=== PATIENT | male | born 1965 | race American Indian/Alaskan Native ===

== ENCOUNTER 2017-08-09 15:29 | Emergency (ER) | payer MEDICAID, OTHER ==
[2017-08-09] MEDS ORDERED: Acetaminophen/HYDROcodone 325-10 MG Tab PO ONE (15:30)
[2017-08-09 17:22] VITALS: BP 144/68
[2017-08-09] MEDS ORDERED: Acetaminophen/HYDROcodone 325-5 MG Tab PO ONE (18:21)
[2017-08-09] MEDS ORDERED: Acetaminophen/HYDROcodone 325-5 MG Tab ONE (18:25)
--- NOTE | 2017-08-10 08:44 | EDM.PDOC ---
Scribed by Ev Abarca 08/09/17 1800 for Iva Doshi NP ED HPI GENERAL MEDICAL PROBLEM - General Chief Complaint: Lower Extremity Injury/Pain Stated Complaint: FOOT INJURY Time Seen by Provider: 08/09/17 17:25 Source of Information: Reports: Patient, RN, RN Notes Reviewed History Limitations: Reports: No Limitations - History of Present Illness INITIAL COMMENTS - FREE TEXT/NARRATIVE: Patient presents to ER with complaint of left foot/ankle pain. Patient states he fell between 2 steps and got foot caught. States this happened last night. Rates pain 8/10. Patient states took ibuprofen and Tylenol without help. Onset: Today Duration: Getting Worse Location: Reports: Lower Extremity, Left Quality: Reports: Ache Severity: Moderate Improves with: Reports: None Worsens with: Reports: None Associated Symptoms: Reports: No Other Symptoms Left Feet Pain Score (Numeric/FACES): 8 - Related Data Allergies Allergy/AdvReac Type Severity Reaction Status Date / Time No Known Allergies Allergy Verified 08/09/17 17:17 Home Meds: Home Meds . [No Known Home Meds] 05/23/15 [History] Past Medical History - Past Health History Medical/Surgical History: Denies Medical/Surgical History HEENT History: Reports: Hard of Hearing Other HEENT History: to left ear, bad eyes Cardiovascular History: Reports: None Respiratory History: Reports: None Gastrointestinal History: Reports: None Genitourinary History: Reports: None Musculoskeletal History: Reports: None Neurological History: Reports: None Psychiatric History: Reports: None Endocrine/Metabolic History: Reports: None Hematologic History: Reports: None Immunologic History: Reports: None Oncologic (Cancer) History: Reports: None Dermatologic History: Reports: None - Infectious Disease History Infectious Disease History: Reports: Chicken Pox - Past Surgical History Head Surgeries/Procedures: Reports: None Social & Family History - Family History Cardiac: Reports: CAD, Hypertension Oncologic: Reports: None - Tobacco Use Smoking Status *Q: Current Every Day Smoker Years of Tobacco use: 20 Packs/Tins Daily: 0.2 - Caffeine Use Caffeine Use: Reports: Coffee - Recreational Drug Use Recreational Drug Use: No - Living Situation & Occupation Living situation: Reports: with Family Review of Systems - Review of Systems Review Of Systems: ROS reveals no pertinent complaints other than HPI. ED EXAM, GENERAL - Physical Exam Exam: See Below Exam Limited By: No Limitations General Appearance: Alert, WD/WN, No Apparent Distress Eye Exam: Bilateral Eye: Normal Inspection Ears: Normal External Exam, Normal Canal, Hearing Grossly Normal, Normal TMs Nose: Normal Inspection, Normal Mucosa, No Blood Throat/Mouth: Normal Inspection, Normal Lips, Normal Teeth, Normal Gums, Normal Oropharynx, Normal Voice, No Airway Compromise Head: Atraumatic, Normocephalic Neck: Normal Inspection, Supple, Non-Tender, Full Range of Motion Respiratory/Chest: No Respiratory Distress, Lungs Clear, Normal Breath Sounds, No Accessory Muscle Use, Chest Non-Tender Cardiovascular: Normal Peripheral Pulses, Regular Rate, Rhythm, No Edema, No Gallop, No JVD, No Murmur, No Rub GI/Abdominal: Normal Bowel Sounds, Soft, Non-Tender, No Organomegaly, No Distention, No Abnormal Bruit, No Mass (Male) Exam: Deferred Rectal (Males) Exam: Deferred Back Exam: Normal Inspection, Full Range of Motion, NT Extremities: Other (left foot swelling. Ecchymosi zee 5toes. ) Neurological: Alert, Oriented, CN II-XII Intact, Normal Cognition, Normal Gait, Normal Reflexes, No Motor/Sensory Deficits Psychiatric: Normal Affect, Normal Mood Skin Exam: Other (ecchymosis left foot.) Lymphatic: No Adenopathy ED TRAUMA EXTREMITY PROCEDURES - Splinting Left Lower Extremity Splint Site: left foot Pre-Procedure NV Status: Normal Post-Procedure NV Status: Normal Splint Material: Fiberglass Applied & Form Fitted By: Provider Provider Post-Splint Application NV Check: NV Status Normal Complications: No Course - Vital Signs Last Recorded V/S: Last Vital Signs Temp 98.3 F 08/09/17 17:22 Pulse 57 L 08/09/17 17:22 Resp 18 08/09/17 17:22 BP 144/68 H 08/09/17 17:22 Pulse Ox 100 08/09/17 17:22 - Orders/Labs/Meds Meds: Medications Discontinued Medications Generic Name Dose Route Start Last Admin Trade Name Freq PRN Reason Stop Dose Admin Hydrocodone Bitart/Acetaminophen 1 tab 08/09/17 18:21 08/09/17 18:28 Taylor 325-5 Mg PO 08/09/17 18:22 1 tab ONETIME ONE Administration Hydrocodone Bitart/Acetaminophen Confirm 08/09/17 18:25 08/09/17 18:30 Taylor 325-5 Mg Administered 08/09/17 18:26 Not Given Dose 2 tab .ROUTE .K-MED ONE - Radiology Interpretation Free Text/Narrative:: Left foot xray: IMPRESSION: Fourth and fifth metatarsal fractures. Thank you for allowing us to participate in the care of your patient. Dictated and Authenticated by: Caleb Villa MD 08/09/2017 5:51 PM Central Time ([place] & [place]) Left ankle xray: IMPRESSION: No acute findings. Thank you for allowing us to participate in the care of your patient. Dictated and Authenticated by: Caleb Villa MD 08/09/2017 5:52 PM Central Time ([place] & [place]) See rad report Departure - Departure Time of Disposition: 18:20 Disposition: Home, Self-Care 01 Condition: Fair Clinical Impression: Closed fracture of metatarsal bone, Metatarsal bone fracture - Discharge Information Instructions: Crutch Use, Adult, [id number], Metatarsal Fracture With Rehab- SportsMed, Cast or Splint Care, Adult, [id number] Forms: ED Department Discharge Additional Instructions: No weight bearing until seen by ortho in [place] Keep splint clean and dry Use crutches On Friday morning call [facility] clinic for an appointment next week. [phone] RX: Taylor I have read and agree with the documentation that has been completed regarding this visit. By signing this record, I attest that the documentation was completed in my physical presence and is an accurate record of the encounter.
== END 2017-08-09 18:35 | disposition home or self-care (01) ==
LOC: DL.ED 15:29
DX: S92.342A Displaced fracture of fourth metatarsal bone, left foot, initial encounter for closed fracture (principal); S92.352A Displaced fracture of fifth metatarsal bone, left foot, initial encounter for closed fracture; F17.210 Nicotine dependence, cigarettes, uncomplicated; W10.9XXA Fall (on) (from) unspecified stairs and steps, initial encounter
CPT/HCPCS: 29515; 73610; 73630; 99283; 99284; A9270

== ENCOUNTER 2017-09-27 11:14 | Emergency (ER) | payer MEDICAID, OTHER ==
[~2017-09-27 11:14] MED LIST: Diazepam 5 MG/ML 10 ML Vial MDV IM ONE; Diazepam 5 MG/ML 10 ML Vial MDV IVPUSH ONE; Diazepam 5 MG/ML 10 ML Vial MDV ONE; MVI, Adult with Vitamin K 10 ML, Thiamine 100 MG, Folic Acid 1 MG in Lactated Ringers 1... IV ONE; Sodium Chloride 0.9% 10 ML Syringe FLUSH PRN
[2017-09-27] MEDS ORDERED: Rocuronium 50 MG/5 ML Vial IV ONE (11:15)
[2017-09-27] MEDS ORDERED: Succinylcholine 200 MG/10 ML MDV IV ONE (11:15)
[2017-09-27] MEDS ORDERED: Propofol 200 MG/20 ML SDV IV ONE (11:15)
[2017-09-27 11:37] LABS: ANION GAP 16.3; CHLORIDE,CL 101 mmol/L (101-111); SODIUM,NA 141 mmol/L (135-145)
[2017-09-27 12:11] VITALS: BP 126/74
--- NOTE | 2017-09-27 13:10 | EDM.PDOC ---
"Scribed by Ev Abarca 09/27/17 1233 for Daisy Jara MD ED HPI GENERAL MEDICAL PROBLEM - General Chief Complaint: Neuro Symptoms/Deficits Stated Complaint: AMBULANCE Time Seen by Provider: 09/27/17 10:59 Source of Information: Reports: Patient, EMS, EMS Notes Reviewed, RN, RN Notes Reviewed History Limitations: Reports: No Limitations - History of Present Illness INITIAL COMMENTS - FREE TEXT/NARRATIVE: Patient presents to ER by [facility] after being found by a relative alone in his home on his bed having recurrent seizures. Patient arrived post- ictal after having 2 seizures in the ambulance and another seizure lasting 8 minutes on arrival on ER. Patient is post-ictal and unable to give any history. EMS reports that patient's cousin informed them that the patient had been drinking alcohol very heavily since April and may have tried to quit recently. Patient has no known prior history of seizure. EMS report that patient's cousin did not believe patient had any falls or injuries recently, but was unsure. EMS report that they did not find any evidence of injury on their assessment. Medical records review reveals pt has Hx of falling while intoxicated. Pt arrived without C-spine protection, moving head/neck spontaneously without restriction. GCS 9 on arrival. Onset: Sudden Location: Reports: Generalized Severity: Severe - Related Data Allergies Allergy/AdvReac Type Severity Reaction Status Date / Time No Known Allergies Allergy Verified 08/09/17 17:17 Home Meds: Home Meds . [No Known Home Meds] 05/23/15 [History] Past Medical History - Past Health History Medical/Surgical History: Denies Medical/Surgical History HEENT History: Reports: Hard of Hearing Other HEENT History: to left ear, bad eyes Cardiovascular History: Reports: None Respiratory History: Reports: None Gastrointestinal History: Reports: None Genitourinary History: Reports: None Musculoskeletal History: Reports: None Neurological History: Reports: None Psychiatric History: Reports: Addiction Endocrine/Metabolic History: Reports: None Hematologic History: Reports: None Immunologic History: Reports: None Oncologic (Cancer) History: Reports: None Dermatologic History: Reports: None - Infectious Disease History Infectious Disease History: Reports: Chicken Pox - Past Surgical History Head Surgeries/Procedures: Reports: None Social & Family History - Family History Cardiac: Reports: CAD, Hypertension Oncologic: Reports: None - Caffeine Use Caffeine Use: Reports: Coffee - Alcohol Use Alcohol Use History: Yes Days Per Week of Alcohol Use: 7 (very heavy alcohol drinker per family) Alcohol Use in Last Twelve Months: Yes Alcohol Use Frequency: Daily - Recreational Drug Use Recreational Drug Use: No - Living Situation & Occupation Living situation: Reports: Single, Alone Occupation: Unemployed ED ROS GENERAL - Review of Systems Review Of Systems: Unable To Obtain (due to patient seizure) - Physical Exam Exam: See Below Exam Limited By: Other (seizure/postical) General Appearance: Obtunded, Thin, Other (poor hygiene) Ears: Normal External Exam, Normal Canal, Hearing Grossly Normal, Normal TMs Nose: Normal Inspection, Normal Mucosa, No Blood Throat/Mouth: Normal Lips, Normal Gums, Normal Oropharynx, No Airway Compromise. No: Normal Teeth (chronic dental decay/missing teeth) Head Exam: Atraumatic, Normocephalic, Other (no sign of trauma) Neck: Normal Inspection, Full Range of Motion (full spontaneous ROM) Respiratory/Chest: No Respiratory Distress, No Accessory Muscle Use, Crackles. No: Rales, Rhonchi, Wheezing, Stridor Cardiovascular: Normal Peripheral Pulses, Regular Rate, Rhythm, No Edema, Tachycardia GI/Abdominal: Normal Bowel Sounds, Soft, Non-Tender, No Distention (Male) Exam: Normal Inspection Rectal (Males) Exam: Deferred Neuro Exam (Abbreviated): Other (postictal on arrival w/confusion and not answering questions, then 8 min. gen. seizure, after which pt was sedated. GCS 9 on arrival, pt was then sedated by diazepam and keppra and intubated w/GCS 3) Extremities: Normal Range of Motion, Normal Capillary Refill, Other (feet with ulcers and blisters) Skin Exam: Warm, Dry, Normal Color, No Rash EKG INTERPRETATION EKG Date: 09/27/17 Time: 11:20 Rhythm: Other (sinus rhythm) Rate (Beats/Min): 96 [place]: Normal P-Wave: Present QRS: Other (nonspecificIVCD with LAD. Left ventricular hypertrophy) ST-T: Normal QT: Normal Course - Vital Signs Last Recorded V/S: Last Vital Signs Temp 37.4 C 09/27/17 12:00 Pulse 117 H 09/27/17 12:00 Resp 22 H 09/27/17 12:00 BP 126/74 09/27/17 12:00 Pulse Ox 3 L 09/27/17 12:00 - Orders/Labs/Meds Orders: Active Orders 24 hr Category Date Time Status Blood Glucose Check, Bedside [] ONETIME Care 09/27/17 11:05 Active C Collar Applied [Spinal Immobilization] [] Care 09/27/17 12:52 Active ASDIRECTED EKG 12 Lead [EKG Documentation Completion] [] STAT Care 09/27/17 11:04 Active Insert Swift Catheter [Insert Urinary Catheter] [OM.PC] Care 09/27/17 11:07 Ordered Stat Peripheral IV Care [RC] . DIRECTED Care 09/27/17 11:05 Active Urinary Catheter Assessment [] ASDIRECTED Care 09/27/17 11:07 Active Cervical Spine wo Cont [CT] Stat Exams 09/27/17 12:53 Ordered Chest 1V Frontal [CR] Stat Exams 09/27/17 12:54 Ordered DRUG SCREEN URINE BIORAD [URCHEM] Stat Lab 09/27/17 11:18 Ordered UA W/MICROSCOPIC [URIN] Stat Lab 09/27/17 11:18 Ordered Sodium Chloride 0.9% [Saline Flush] Med 09/27/17 11:05 Active 10 ml FLUSH ASDIRECTED PRN NG [Nasogastric Orogastric Tube Insertion] [OM.PC] Oth 09/27/17 12:54 Ordered Routine Peripheral IV Insertion Adult [OM.PC] Stat Oth 09/27/17 11:03 Ordered Seizure Precautions [OM.PC] Routine Oth 09/27/17 11:07 Ordered Medication Orders Sodium Chloride (Saline Flush) 10 ml FLUSH ASDIRECTED PRN PRN Reason: Keep Vein Open Last Admin: 09/27/17 11:29 Dose: 10 ml Labs: Laboratory Tests 09/27/17 09/27/17 09/27/17 Range/Units 11:05 11:05 11:05 WBC 8.5 (5.0-10.0) 10^3/uL RBC 4.31 L (4.6-6.2) 10^6/uL Hgb 13.8 L (14.0-18.0) g/dL Hct 41.4 (40.0-54.0) % MCV 96.1 D (80-100) fL MCH 32.0 (27.0-34.0) pg MCHC 33.3 (33.0-35.0) g/dL Plt Count 191 (150-450) 10^3/uL Neut % (Auto) 68.5 (42.2-75.2) % Lymph % (Auto) 19.6 L (20.5-50.1) % [place] % (Auto) 9.3 H (2-8) % Eos % (Auto) 2.5 (1.0-3.0) % Baso % (Auto) 0.1 (0.0-1.0) % PT 9.3 (9.0-12.0) SEC INR 0.9 (0.9-1.2) APTT 28.5 (22.0-34.0) SEC Sodium 141 (135-145) mmol/L Potassium 4.3 (3.6-5.0) mmol/L Chloride 101 (101-111) mmol/L Carbon Dioxide 28.0 (21.0-31.0) mmol/L Anion Gap 16.3 BUN 8 (7-18) mg/dL Creatinine 0.7 (0.6-1.3) mg/dL Est Cr Clr Drug Dosing TNP Estimated GFR (MDRD) > 60 BUN/Creatinine Ratio 11.42 Glucose 124 H (74-105) mg/dL POC Glucose (70-105) mg/dl Lactic Acid (0.5-2.2) mmol/L Calcium 8.8 (8.4-10.2) mg/dl Magnesium 1.9 (1.8-2.5) mg/dL Total Bilirubin 0.9 (0.2-1.0) mg/dL AST 121 H (10-42) IU/L ALT 78 H (10-60) IU/L Alkaline Phosphatase 152 H (42-121) IU/L Lactate Dehydrogenase 268 H (91-180) IU/L Creatine Kinase 198 H (26-174) IU/L Troponin I < 0.02 (0.00-0.02) ng/ml Total Protein 8.8 H (6.7-8.2) g/dl Albumin 4.1 (3.2-5.5) g/dl Globulin 4.7 Albumin/Globulin Ratio 0.87 TSH, Ultra Sensitive (0.45-5.33) uIu/mL Urine Color (YELLOW) Urine Appearance (CLEAR) Urine pH (5.0-9.0) Ur Specific [place] (1.005-1.030) Urine Protein (NEGATIVE) Urine Glucose (UA) (NEGATIVE) Urine Ketones (NEGATIVE) Urine Occult Blood (NEGATIVE) Urine Nitrite (NEGATIVE) Urine Bilirubin (NEGATIVE) Urine Urobilinogen (0.2-1.0) mg/dL Ur Leukocyte Esterase (NEGATIVE) Urine RBC /HPF Urine WBC (0-5/HPF) /HPF Ur Epithelial Cells /HPF Amorphous Sediment (0/HPF) /HPF Urine Bacteria (0-FEW/HPF) /HPF Urine Mucus /LPF Urine Opiates Screen (NEGATIVE) Ur Oxycodone Screen (NEGATIVE) Urine Methadone Screen (NEGATIVE) Ur Barbiturates Screen (NEGATIVE) U Tricyclic Antidepress (NEGATIVE) Ur Phencyclidine Scrn (NEGATIVE) Ur Amphetamine Screen (NEGATIVE) U Methamphetamines Scrn (NEGATIVE) Urine MDMA Screen (NEGATIVE) U Benzodiazepines Scrn (NEGATIVE) Urine Cocaine Screen (NEGATIVE) U Marijuana (THC) Screen (NEGATIVE) Ethyl Alcohol 232 mg/dL 09/27/17 09/27/17 09/27/17 Range/Units 11:05 11:05 11:18 WBC (5.0-10.0) 10^3/uL RBC (4.6-6.2) 10^6/uL Hgb (14.0-18.0) g/dL Hct (40.0-54.0) % MCV (80-100) fL MCH (27.0-34.0) pg MCHC (33.0-35.0) g/dL Plt Count (150-450) 10^3/uL Neut % (Auto) (42.2-75.2) % Lymph % (Auto) (20.5-50.1) % [place] % (Auto) (2-8) % Eos % (Auto) (1.0-3.0) % Baso % (Auto) (0.0-1.0) % PT (9.0-12.0) SEC INR (0.9-1.2) APTT (22.0-34.0) SEC Sodium (135-145) mmol/L Potassium (3.6-5.0) mmol/L Chloride (101-111) mmol/L Carbon Dioxide (21.0-31.0) mmol/L Anion Gap BUN (7-18) mg/dL Creatinine (0.6-1.3) mg/dL Est Cr Clr Drug Dosing Estimated GFR (MDRD) BUN/Creatinine Ratio Glucose (74-105) mg/dL POC Glucose (70-105) mg/dl Lactic Acid 4.1 H (0.5-2.2) mmol/L Calcium (8.4-10.2) mg/dl Magnesium (1.8-2.5) mg/dL Total Bilirubin (0.2-1.0) mg/dL AST (10-42) IU/L ALT (10-60) IU/L Alkaline Phosphatase (42-121) IU/L Lactate Dehydrogenase (91-180) IU/L Creatine Kinase (26-174) IU/L Troponin I (0.00-0.02) ng/ml Total Protein (6.7-8.2) g/dl Albumin (3.2-5.5) g/dl Globulin Albumin/Globulin Ratio TSH, Ultra Sensitive 2.08 (0.45-5.33) uIu/mL Urine Color Yellow (YELLOW) Urine Appearance Clear (CLEAR) Urine pH 6.0 (5.0-9.0) Ur Specific [place] 1.010 (1.005-1.030) Urine Protein 30 H (NEGATIVE) Urine Glucose (UA) Negative (NEGATIVE) Urine Ketones Negative (NEGATIVE) Urine Occult Blood Trace-lysed H (NEGATIVE) Urine Nitrite Negative (NEGATIVE) Urine Bilirubin Negative (NEGATIVE) Urine Urobilinogen 0.2 (0.2-1.0) mg/dL Ur Leukocyte Esterase Negative (NEGATIVE) Urine RBC 0-5 /HPF Urine WBC Not seen (0-5/HPF) /HPF Ur Epithelial Cells Occasional /HPF Amorphous Sediment Not seen (0/HPF) /HPF Urine Bacteria Not seen (0-FEW/HPF) /HPF Urine Mucus Not seen /LPF Urine Opiates Screen (NEGATIVE) Ur Oxycodone Screen (NEGATIVE) Urine Methadone Screen (NEGATIVE) Ur Barbiturates Screen (NEGATIVE) U Tricyclic Antidepress (NEGATIVE) Ur Phencyclidine Scrn (NEGATIVE) Ur Amphetamine Screen (NEGATIVE) U Methamphetamines Scrn (NEGATIVE) Urine MDMA Screen (NEGATIVE) U Benzodiazepines Scrn (NEGATIVE) Urine Cocaine Screen (NEGATIVE) U Marijuana (THC) Screen (NEGATIVE) Ethyl Alcohol mg/dL 09/27/17 09/27/17 Range/Units 11:18 11:58 WBC (5.0-10.0) 10^3/uL RBC (4.6-6.2) 10^6/uL Hgb (14.0-18.0) g/dL Hct (40.0-54.0) % MCV (80-100) fL MCH (27.0-34.0) pg MCHC (33.0-35.0) g/dL Plt Count (150-450) 10^3/uL Neut % (Auto) (42.2-75.2) % Lymph % (Auto) (20.5-50.1) % [place] % (Auto) (2-8) % Eos % (Auto) (1.0-3.0) % Baso % (Auto) (0.0-1.0) % PT (9.0-12.0) SEC INR (0.9-1.2) APTT (22.0-34.0) SEC Sodium (135-145) mmol/L Potassium (3.6-5.0) mmol/L Chloride (101-111) mmol/L Carbon Dioxide (21.0-31.0) mmol/L Anion Gap BUN (7-18) mg/dL Creatinine (0.6-1.3) mg/dL Est Cr Clr Drug Dosing Estimated GFR (MDRD) BUN/Creatinine Ratio Glucose (74-105) mg/dL POC Glucose 92 (70-105) mg/dl Lactic Acid (0.5-2.2) mmol/L Calcium (8.4-10.2) mg/dl Magnesium (1.8-2.5) mg/dL Total Bilirubin (0.2-1.0) mg/dL AST (10-42) IU/L ALT (10-60) IU/L Alkaline Phosphatase (42-121) IU/L Lactate Dehydrogenase (91-180) IU/L Creatine Kinase (26-174) IU/L Troponin I (0.00-0.02) ng/ml Total Protein (6.7-8.2) g/dl Albumin (3.2-5.5) g/dl Globulin Albumin/Globulin Ratio TSH, Ultra Sensitive (0.45-5.33) uIu/mL Urine Color (YELLOW) Urine Appearance (CLEAR) Urine pH (5.0-9.0) Ur Specific [place] (1.005-1.030) Urine Protein (NEGATIVE) Urine Glucose (UA) (NEGATIVE) Urine Ketones (NEGATIVE) Urine Occult Blood (NEGATIVE) Urine Nitrite (NEGATIVE) Urine Bilirubin (NEGATIVE) Urine Urobilinogen (0.2-1.0) mg/dL Ur Leukocyte Esterase (NEGATIVE) Urine RBC /HPF Urine WBC (0-5/HPF) /HPF Ur Epithelial Cells /HPF Amorphous Sediment (0/HPF) /HPF Urine Bacteria (0-FEW/HPF) /HPF Urine Mucus /LPF Urine Opiates Screen Negative (NEGATIVE) Ur Oxycodone Screen Negative (NEGATIVE) Urine Methadone Screen Negative (NEGATIVE) Ur Barbiturates Screen Negative (NEGATIVE) U Tricyclic Antidepress Negative (NEGATIVE) Ur Phencyclidine Scrn Negative (NEGATIVE) Ur Amphetamine Screen Negative (NEGATIVE) U Methamphetamines Scrn Negative (NEGATIVE) Urine MDMA Screen Negative (NEGATIVE) U Benzodiazepines Scrn Negative (NEGATIVE) Urine Cocaine Screen Negative (NEGATIVE) U Marijuana (THC) Screen Negative (NEGATIVE) Ethyl Alcohol mg/dL Meds: Medications Generic Name Dose Route Start Last Admin Trade Name Freq PRN Reason Stop Dose Admin Sodium Chloride 10 ml 09/27/17 11:05 09/27/17 11:29 Saline Flush FLUSH 10 ml ASDIRECTED PRN Administration Keep Vein Open Discontinued Medications Generic Name Dose Route Start Last Admin Trade Name Freq PRN Reason Stop Dose Admin Diazepam 10 mg 09/27/17 11:03 09/27/17 11:29 Valium IM 09/27/17 11:04 10 mg ONETIME ONE Administration Diazepam Confirm 09/27/17 11:03 09/27/17 12:40 Valium Administered 09/27/17 11:04 Not Given Dose 50 mg .ROUTE .STK-MED ONE Diazepam 10 mg 09/27/17 11:10 09/27/17 11:31 Valium IVPUSH 09/27/17 11:11 10 mg ONETIME ONE Administration Diazepam Confirm 09/27/17 11:10 09/27/17 12:40 Valium Administered 09/27/17 11:11 Not Given Dose 50 mg .ROUTE .STK-MED ONE Multivitamins/Minerals 10 ml/ 1,011.2 mls @ 999 mls/hr 09/27/17 11:05 11:28 Thiamine HCl 100 mg/ Folic IV 09/27/17 12:05 999 mls/hr Acid 1 mg/ Lactated Ringer's .BOLUS ONE Administration Levetiracetam 3,000 mg/ Sodium 130 mls @ 400 mls/hr 09/27/17 11:05 09/27/17 11:28 Chloride IV 09/27/17 11:19 400 mls/hr ONETIME ONE Administration - Radiology Interpretation Free Text/Narrative:: Chest x-ray: No acute chest findings. See rad report. [facility] Final Radiology Report Call: [phone] assistance Online chat: [email or web address] Name: AIDEN ZHU Age: 52Years M Date: 09/27/2017 SSN: -- : [id number] Study: CT HEAD WO Requesting Physician: DAISY JARA Images: 146 Addl Studies: Provided Clinical History: no prior exam in pacs Contrast: Without Contrast Medium: Contrast Amount: Contrast Method: Page 1 of 2 EXAM: CT Head Without Intravenous Contrast CLINICAL HISTORY: The patient is a 52 years male; Signs and symptoms; Other: Seizure; Additional info: No prior exam in pacs Examination order is timed 09/27/2017 11:37 AM. TECHNIQUE: Axial computed tomography images of the head/brain without intravenous contrast. All CT scans at this facility use at least one of these dose optimization techniques: automated exposure control; mA and/or kV adjustment per patient size (includes targeted exams where dose is matched to clinical indication); or iterative reconstruction. Coronal and sagittal reformatted images were created and reviewed. COMPARISON: No relevant prior studies available. FINDINGS: BRAIN: There is left convexity acute subdural hematoma measuring up to approximately 13 mm in mass in thickness. This causes partial effacement of adjacent sulci and less than 2 mm of [id number] midline shift. Basilar cisterns are widely patent. There is minimal extra-axial hemorrhage along the left side of the tentorium measuring 1.5 mm in thickness and along the anterior falx measuring approximately 3 mm thickness. There is no evidence of acute parenchymal hemorrhage. VENTRICLES: Unremarkable as visualized. No ventriculomegaly. BONES/JOINTS: There are chronic fracture deformities of bilateral lamina papyracea and nasal bones. SOFT TISSUES: Unremarkable as visualized. AIDEN ZHU | Final Radiology Report CONFIDENTIALITY STATEMENT This report is intended only for use by the referring physician, and only in accordance with law. If you received this in error, call [phone]. Page 2 of 2 SINUSES: There is mucosal thickening in maxillary sinuses. MASTOID AIR CELLS: Unremarkable as visualized. No mastoid effusion. IMPRESSION: Left convexity acute subdural hematoma with mild mass effect and midline shift as described. Small amount of extra-axial hemorrhage and tentorium. DAISY Valencia was contacted by telephone call from Dr. Gladys Schroeder 12/2017 12:32 PM CDT and aware of subdural hematoma and transportation to other facility. Thank you for allowing us to participate in the care of your patient. Dictated and Authenticated by: Gladys Schroeder MD 09/27/2017 12:[address] Results Date: 09/27/17 CT Results Time: 12:35 - Re-Assessments/Exams Free Text/Narrative Re-Assessment/Exam: 09/27/17 12:56 Pt intubated by [employer] without complications. NG tube placed by RN. 09/27/17 12:42 C-collar applied even though pt had been moving his head/neck spontaneously. Departure - Departure Time of Disposition: 13:03 Disposition: DC/Tfer to Acute Hospital 02 Condition: Critical Clinical Impression: Subdural hematoma, Seizures, post-traumatic, Alcohol abuse Alcohol intoxication Qualifiers: Complication of substance-induced condition: with unspecified complication Qualified Code(s): F10.929 - Alcohol use, unspecified with intoxication, unspecified - Discharge Information Forms: ED Department Discharge, Interfacility Transfer EMTALA - My Orders Last 24 Hours: My Active Orders 09/27/17 11:03 Peripheral IV Insertion Adult [OM.PC] Stat 09/27/17 11:04 EKG 12 Lead [EKG Documentation Completion] [RC] STAT 09/27/17 11:05 Blood Glucose Check, Bedside [RC] ONETIME Peripheral IV Care [RC] . DIRECTED Sodium Chloride 0.9% [Saline Flush] 10 ml FLUSH ASDIRECTED PRN 09/27/17 11:07 Insert Swift Catheter [Insert Urinary Catheter] [OM.PC] Stat Urinary Catheter Assessment [RC] ASDIRECTED Seizure Precautions [OM.PC] Routine 09/27/17 11:18 DRUG SCREEN URINE BIORAD [URCHEM] Stat UA W/MICROSCOPIC [URIN] Stat 09/27/17 12:52 C Collar Applied [Spinal Immobilization] [RC] ASDIRECTED 09/27/17 12:53 Cervical Spine wo Cont [CT] Stat 09/27/17 12:54 Chest 1V Frontal [CR] Stat NG [Nasogastric Orogastric Tube Insertion] [OM.PC] Routine - Assessment/Plan Last 24 Hours: My Active Orders 09/27/17 11:03 Peripheral IV Insertion Adult [OM.PC] Stat 09/27/17 11:04 EKG 12 Lead [EKG Documentation Completion] [RC] STAT 09/27/17 11:05 Blood Glucose Check, Bedside [] ONETIME Peripheral IV Care [] . DIRECTED Sodium Chloride 0.9% [Saline Flush] 10 ml FLUSH ASDIRECTED PRN 09/27/17 11:07 Insert Swift Catheter [Insert Urinary Catheter] [OM.PC] Stat Urinary Catheter Assessment [RC] ASDIRECTED Seizure Precautions [OM.PC] Routine 09/27/17 11:18 DRUG SCREEN URINE BIORAD [URCHEM] Stat UA W/MICROSCOPIC [URIN] Stat 09/27/17 12:52 C Collar Applied [Spinal Immobilization] [RC] ASDIRECTED 09/27/17 12:53 Cervical Spine wo Cont [CT] Stat 09/27/17 12:54 Chest 1V Frontal [CR] Stat NG [Nasogastric Orogastric Tube Insertion] [OM.PC] Routine I have read and agree with the documentation that has been completed regarding this visit. By signing this record, I attest that the documentation was completed in my physical presence and is an accurate record of the encounter."
--- NOTE | 2017-10-01 09:22 | EKG ---
09/27/2017- AIDEN ZHU - FINDINGS: A 12-lead EKG shows normal sinus rhythm with tachycardia with left ventricular hypertrophy. Nonspecific ST-T wave changes noted on leads V1, V2, and V3. No significant ST elevation or ST depression noted at this time. [facility] /[id number]
== END 2017-09-27 13:11 ==
LOC: DL.ED 11:14
DX: S06.5X9A Traumatic subdural hemorrhage with loss of consciousness of unspecified duration, initial encounter (principal); R56.1 Post traumatic seizures; F10.129 Alcohol abuse with intoxication, unspecified; Y90.7 Blood alcohol level of 200-239 mg/100 ml; X58.XXXA Exposure to other specified factors, initial encounter
CPT/HCPCS: 31500; 36415; 70450; 71045; 72125; 80053; 80305; 81001; 82550; 82962; 83605; 83615; 83735; 84443; 84484; 85025; 85610; 85730; 93005; 96361; 96365; 96372; 96374; 99285; G0480; J1953; J3360; J3411; J7050; J7120; J0330; J2704; J3490

== ENCOUNTER 2018-12-11 09:50 | Inpatient (IN) | payer MEDICAID ==
[2018-12-11] MEDS ORDERED: Magnesium Hydroxide 400 MG/5 ML Susp 30 ML Cup PO PRN (13:32)
[2018-12-11] MEDS ORDERED: Acetaminophen 325 MG Tab PO PRN (13:32)
[2018-12-11] MEDS ORDERED: Docusate Sodium 100 MG Cap PO PRN (13:32)
[2018-12-11] MEDS ORDERED: Ondansetron 4 MG Tab.DIS PO PRN (13:32)
[2018-12-11] MEDS ORDERED: Ibuprofen 200 MG Tab PO PRN (13:34)
[2018-12-11] MEDS ORDERED: LORazepam 0.5 MG Tab PO PRN (13:36)
[2018-12-11] MEDS ORDERED: LORazepam 2 MG/ML Syringe IVPUSH PRN (13:37)
--- NOTE | 2018-12-11 14:16 | HP ---
CHIEF COMPLAINT: Admitted to swing bed for continued physical therapy and occupational therapy with recent seizure activity. HISTORY OF PRESENTING ILLNESS: Mr. Jersey Mercado is a 53-year-old male with a medical history significant for chronic alcohol use, chronic tobacco use, history of recurrent seizures in the past. The patient had complications with injury to the head with a shovel back in 09/2017 with acute subdural hematoma on the left side which showed a 1 cm deep and had alcohol withdrawal seizures at that time. He was admitted to [facility]. He was later discharged, but again back on 10/22/2017, the patient had neurological symptoms with worsening of his subdural bleed and had to undergo left parietal mame hole on 10/23/2017 and has been apparently normal. He was recently discharged to [facility] after he had complications with seizures. The patient was given 4 mg of IV Ativan at that time for witnessed seizure and was also given a loading dose of Keppra. Even after that, the patient continued to have seizure, so was intubated for airway protection and was admitted to [facility] intensive care unit. The patient remained intubated and got later extubated. He was later transferred to the medical floor on 12/03/2018. Back on 12/05/2018, the patient had complications with seizure-like activity and was evaluated by Teleneurology for stroke code and felt that he was in postictal state. At that time, he was evaluated by Neurology services and had an EEG done and also increased his Topamax to 50 mg twice a day and also increased his Keppra to 1500 mg twice a day. Since then, he has been on high-dose antiseizure medications. The patient remained hemodynamically stable, but continued to have generalized weakness and debility, requiring a transfer to swing bed for continued PT/OT. At this time, the patient denies any complaints of chest pain. No shortness of breath. No abdominal pain. No nausea. No vomiting. No diarrhea. No headaches. No changes in the vision. The patient denied any history of chest pains on exertion. No history of dyspnea on exertion. No history of orthopnea or paroxysmal nocturnal dyspnea. The patient denied any history of hematemesis, hematochezia, or melenic stools. Normal bowel and bladder habits otherwise. REVIEW OF SYSTEMS: A complete review of system including skin; ear, nose, and throat; cardiovascular system; respiratory system; gastrointestinal system; genitourinary system; hematology, oncology; neurology; allergy, immunology; constitutional were all evaluated and were negative except for the above-said notes. PAST MEDICAL HISTORY: Significant for subdural hematoma, chronic alcohol use, chronic tobacco use, history of seizures. PAST SURGICAL HISTORY: Significant for mame hole brain surgery for a brain hematoma. FAMILY HISTORY: None significant. SOCIAL HISTORY: The patient continues to smoke cigarettes, half a pack a day. Continues to use alcohol, the patient's last use was 4 days prior to getting admitted to [facility]. ALLERGIES: The patient noted to have allergies to bee venom. MEDICATIONS: Home medications include Topamax 50 mg daily, nicotine 7 mg topical daily, multivitamin 1 tablet daily, ibuprofen 400 mg every 8 hours as needed for pain, folic acid 1 mg daily, Keppra 750 mg twice a day, Tylenol 500 mg every 6 hours as needed. PHYSICAL EXAMINATION: General: The patient is well oriented to time, place, and person. Follows commands spontaneously. Cardiovascular System: S1, S2 heard with normal intensity. No gallops. Respiratory System: Clear to auscultation bilaterally. No wheeze. No crepitations. Abdomen: Soft. Bowel sounds positive. Nontender. No rigidity. Extremities: No edema of bilateral lower extremities. Neurology: No gross focal neurological deficit. LABORATORY DATA: As reviewed from [facility]. BUN 11, creatinine 0.7, sodium 138, potassium 4, chloride 109, bicarb 21.8. ASSESSMENT: 1. Seizures. 2. Alcohol withdrawals. 3. Chronic alcohol use and tobacco use. 4. Recent history of subdural hematoma requiring mame hole surgery and evacuation of hematoma. PLAN: 1. Seizures. The patient had complications with seizures and his Topamax was increased to 50 mg. We will continue with the current dose of Topamax, and he is also scheduled to receive Keppra 750 mg twice a day. We will continue the same. We will have him on seizure precautions. We will continue with physical therapy and occupational therapy while in the hospital. 2. Alcohol use and tobacco use. The patient is educated about alcohol cessation, tobacco cessation, and strongly encouraged him to quit drinking and smoking, which he understands and verbalized the same. We will have him on nicotine transdermal patch while in the hospital. 3. DVT prophylaxis. The patient had complications with subdural hematoma. We will avoid any aggressive heparinization secondary to recent subdural hematoma. 4. Continue physical therapy and occupational therapy while in the swing bed. 5. Code status. The patient wants to be full code. 6. Discussed with the patient at bedside regarding the plan of care. Reviewed the labs and medications. Reviewed the old charts. [facility] /[id number]
[2018-12-11] MEDS ORDERED: LORazepam 2 MG/ML Syringe IM PRN (14:20)
[2018-12-11] MEDS: Topiramate 25 MG Tab PO SCH (20:32)
[2018-12-11] MEDS: levETIRAcetam 500 MG Tab PO SCH (20:32)
[2018-12-11] MEDS: Heparin Sodium 5,000 Units/ML Vial SUBCUT SCH (20:34)
[2018-12-12 06:07] LABS: ANION GAP 10.9; CHLORIDE,CL 109 mmol/L (101-111); SODIUM,NA 139 mmol/L (135-145)
[2018-12-12] MEDS: Multivitamins,Therapeutic Tab PO SCH (09:06)
[2018-12-12] MEDS: Topiramate 25 MG Tab PO SCH ×2 (09:06→20:44)
[2018-12-12] MEDS: levETIRAcetam 500 MG Tab PO SCH ×2 (09:06→20:44)
[2018-12-12] MEDS: Folic Acid 1 MG Tab PO SCH (09:07)
[2018-12-12] MEDS: Heparin Sodium 5,000 Units/ML Vial SUBCUT SCH ×2 (09:07→20:45)
[2018-12-12] MEDS: Nicotine 7 MG/24 Hr Patch TOP SCH (09:07)
[2018-12-12] MEDS: CHECK TRDERM SCH (21:02)
[2018-12-13] MEDS: Folic Acid 1 MG Tab PO SCH (10:11)
[2018-12-13] MEDS: levETIRAcetam 500 MG Tab PO SCH ×2 (10:11→21:43)
[2018-12-13] MEDS: Topiramate 25 MG Tab PO SCH ×2 (10:11→21:43)
[2018-12-13] MEDS: Multivitamins,Therapeutic Tab PO SCH (10:12)
[2018-12-13] MEDS: Heparin Sodium 5,000 Units/ML Vial SUBCUT SCH ×2 (10:12→21:44)
[2018-12-13] MEDS: Nicotine 7 MG/24 Hr Patch TOP SCH (10:20)
[2018-12-13] MEDS: Carboxymethylcellulose Sodium 1% Ophth Gel 0.4 ML UD EYEBOTH PRN ×2 (16:19→19:40)
[2018-12-13] MEDS: CHECK TRDERM SCH (21:45)
[2018-12-14] MEDS: levETIRAcetam 500 MG Tab PO SCH ×2 (08:32→20:59)
[2018-12-14] MEDS: Heparin Sodium 5,000 Units/ML Vial SUBCUT SCH ×2 (08:33→20:59)
[2018-12-14] MEDS: Folic Acid 1 MG Tab PO SCH (08:33)
[2018-12-14] MEDS: Multivitamins,Therapeutic Tab PO SCH (08:33)
[2018-12-14] MEDS: Nicotine 7 MG/24 Hr Patch TOP SCH (08:35)
[2018-12-14] MEDS: Topiramate 25 MG Tab PO SCH ×2 (13:13→21:01)
[2018-12-14] MEDS: Carboxymethylcellulose Sodium 1% Ophth Gel 0.4 ML UD EYEBOTH PRN (19:28)
[2018-12-14] MEDS: CHECK TRDERM SCH (20:58)
[2018-12-15] MEDS: levETIRAcetam 500 MG Tab PO SCH ×2 (09:33→21:11)
[2018-12-15] MEDS: Multivitamins,Therapeutic Tab PO SCH (09:34)
[2018-12-15] MEDS: Topiramate 25 MG Tab PO SCH ×2 (09:34→21:13)
[2018-12-15] MEDS: Heparin Sodium 5,000 Units/ML Vial SUBCUT SCH ×2 (09:34→21:15)
[2018-12-15] MEDS: Folic Acid 1 MG Tab PO SCH (09:34)
[2018-12-15] MEDS: Nicotine 7 MG/24 Hr Patch TOP SCH (09:35)
[2018-12-15] MEDS: Carboxymethylcellulose Sodium 1% Ophth Gel 0.4 ML UD EYEBOTH PRN (17:00)
[2018-12-15] MEDS: CHECK TRDERM SCH (21:11)
[2018-12-16 07:48] VITALS: BP 98/60; PULSE 76
[2018-12-16] MEDS: levETIRAcetam 500 MG Tab PO SCH (08:37)
[2018-12-16] MEDS: Folic Acid 1 MG Tab PO SCH (08:38)
[2018-12-16] MEDS: Multivitamins,Therapeutic Tab PO SCH (08:38)
[2018-12-16] MEDS: Heparin Sodium 5,000 Units/ML Vial SUBCUT SCH (08:39)
[2018-12-16] MEDS: Nicotine 7 MG/24 Hr Patch TOP SCH (08:39)
[2018-12-16] MEDS: Topiramate 25 MG Tab PO SCH (08:39)
--- NOTE | 2018-12-16 10:19 | PCM.DCSUM1 ---
Discharge Summary - Hospital Course Free Text/Narrative:: patient admitted to swing bed PT/OT. His stay was uncomplicated. He is being discharged home in stable condition. Diagnosis: Stroke: No - Discharge Data Discharge Date: 12/16/18 Discharge Disposition: Home, Self-Care 01 Condition: Good - Referral to Home Health Primary Care Physician: PCP Unknown - Patient Summary/Data Consults: Consultations 12/11/18 13:32 OT Evaluation and Treatment [CONS] Routine PT Evaluation and Treatment [CONS] Routine - Patient Instructions Diet: Heart Healthy Diet Activity: As Tolerated Driving: Do Not Drive Showering/Bathing: May Shower Notify Provider of: Fever, Increased Pain, Swelling and Redness, Nausea and/or Vomiting - Discharge Plan *PRESCRIPTION DRUG MONITORING PROGRAM REVIEWED*: Not Applicable *COPY OF PRESCRIPTION DRUG MONITORING REPORT IN PATIENT BREANNE: Not Applicable Prescriptions/Med Rec: levETIRAcetam [Keppra] 750 mg PO BID 30 Days tablet Home Medications: Home Meds Acetaminophen [Tylenol Extra Strength] 500 mg PO Q6HR PRN 12/11/18 [History] Folic Acid 1 mg PO DAILY 12/11/18 [History] Ibuprofen [Advil] 400 mg PO Q8HR PRN 12/11/18 [History] Multivitamin [Multi-Vitamin Daily] 1 tab PO DAILY 12/11/18 [History] Nicotine [Nicotine Patch] 7 mg TOP DAILY 12/11/18 [History] Topiramate [Topamax] 50 mg PO BID 12/11/18 [History] levETIRAcetam [Keppra] 750 mg PO BID 30 Days tablet 12/16/18 [Rx] - Discharge Summary/Plan Comment DC Time >30 min.: Yes - General Info Date of Service: 12/16/18 Admission Dx/Problem (Free Text: Patient admitted to swing bed PT/OT. His stay was uncomplicated. He is being discharged home in stable condition. Functional Status: Reports: Pain Controlled - Review of Systems General: Reports: No Symptoms HEENT: Reports: No Symptoms Pulmonary: Reports: No Symptoms Cardiovascular: Reports: No Symptoms Gastrointestinal: Reports: No Symptoms Genitourinary: Reports: No Symptoms Musculoskeletal: Reports: No Symptoms Skin: Reports: No Symptoms Neurological: Reports: No Symptoms Psychiatric: Reports: No Symptoms - Patient Data Vitals - Most Recent: Last Vital Signs Temp 98.4 F 12/16/18 07:46 Pulse 76 12/16/18 07:46 Resp 20 12/16/18 07:46 BP 98/60 12/16/18 07:46 Pulse Ox 99 12/16/18 07:46 Weight - Most Recent: 123 lb 12.8 oz I&O - Last 24 hours: Intake & Output 12/15/18 12/16/18 12/16/18 22:59 06:59 14:59 Intake Total 1025 450 Balance 1025 450 Lab Results - Last 24 hrs: Laboratory Results - last 24 hr 12/14/18 Range/Units 06:06 Cortisol 5.8 ug/dL Med Orders - Current: Current Medications Acetaminophen (Tylenol) 650 mg PO Q4H PRN PRN Reason: Pain (Mild 1-3)/fever Artificial Tears (Refresh Celluvisc) 0 each EYEBOTH QID PRN PRN Reason: Dry Eyes Last Admin: 12/15/18 17:00 Dose: 1 each Docusate Sodium (Colace) 100 mg PO BID PRN PRN Reason: Constipation, use 1st Folic Acid (Folic Acid) 1 mg PO DAILY PENDING SALE TO [facility] Last Admin: 12/16/18 08:38 Dose: 1 mg Heparin Sodium (Porcine) (Heparin Sodium) 5,000 units SUBCUT Q12H PENDING SALE TO [facility] Last Admin: 12/16/18 08:39 Dose: 5,000 units Ibuprofen (Motrin) 400 mg PO Q8HR PRN PRN Reason: Pain (moderate 4-6) Last Admin: 12/15/18 22:57 Dose: 400 mg Levetiracetam (Keppra) 750 mg PO BID PENDING SALE TO [facility] Last Admin: 12/16/18 08:37 Dose: 750 mg Lorazepam (Ativan) 0.5 mg PO BID PRN PRN Reason: Anxiety Lorazepam (Ativan) 1 mg IM BID PRN PRN Reason: Seizures Magnesium Hydroxide (Milk Of Magnesia) 30 ml PO Q12H PRN PRN Reason: Constipation, use 2nd Miscellaneous Information (Check Patch) 1 ea TRDERM BEDTIME PENDING SALE TO [facility] Last Admin: 12/15/18 21:11 Dose: Not Given Multivitamins (Thera) 1 each PO DAILY PENDING SALE TO [facility] Last Admin: 12/16/18 08:38 Dose: 1 each Nicotine (Habitrol) 7 mg TOP DAILY PENDING SALE TO [facility] Last Admin: 12/16/18 08:39 Dose: Not Given Ondansetron HCl (Zofran Odt) 4 mg PO Q4H PRN PRN Reason: nausea, able to take PO Topiramate (Topamax) 50 mg PO BID PENDING SALE TO [facility] Last Admin: 12/16/18 08:39 Dose: 50 mg Discontinued Medications Influenza Virus Vaccine (Pharmacy To Dose - Influenza Vaccine) 1 each IM ONETIME ONE Stop: 12/11/18 12:29 Influenza Virus Vaccine (Afluria Quad 2019-20 (3yr Up)) 60 mcg IM .ONCE ONE Stop: 12/11/18 09:01 Last Admin: 12/11/18 13:42 Dose: 60 mcg Lorazepam (Ativan) 1 mg IVPUSH BID PRN PRN Reason: Seizures - Exam Quality Assessment: Reports: DVT Prophylaxis (Not in any distress) General: Reports: Alert, Oriented HEENT: Reports: Pupils Equal, Pupils Reactive, EOMI, Mucous Membr. Moist/[employer] Neck: Reports: Supple Lungs: Reports: Clear to Auscultation, Normal Respiratory Effort Cardiovascular: Reports: Regular Rate, Regular Rhythm GI/Abdominal Exam: Normal Bowel Sounds, Soft, Non-Tender, No Organomegaly, No Distention, No Abnormal Bruit, No Mass, Pelvis Stable (Male) Exam: No Hernia, Normal Inspection, Normal Prostate, Circumcised Rectal (Males) Exam: Normal Exam, Normal Rectal Tone, Prostate Normal Back Exam: Reports: Normal Inspection, Full Range of Motion Extremities: Normal Inspection, Normal Range of Motion, Non-Tender, No Pedal Edema, Normal Capillary Refill Skin: Reports: Warm, Dry, Intact Wound/Incisions: Reports: Healing Well Neurological: Reports: No New Focal Deficit Psy/Mental Status: Reports: Alert, Normal Affect, Normal Mood
== END 2018-12-16 15:33 | disposition home or self-care (01) | DRG 948 ==
LOC: UNDOADMIN 12:06 → DL.MS 12:06
PROVIDERS: ADMIT Internal Medicine; ATTEND Student in an Organized Health Care Education/Training Program
DX: R53.1 Weakness (principal); F10.239 Alcohol dependence with withdrawal, unspecified; R53.81 Other malaise; R56.9 Unspecified convulsions; F17.210 Nicotine dependence, cigarettes, uncomplicated; Z87.820 Personal history of traumatic brain injury; Z28.82 Immunization not carried out because of caregiver refusal; Z79.899 Other long term (current) drug therapy
CPT/HCPCS: 36415; 80048; 82533; 85027; 90686; 97110-GO; 97110-GP; 97116-GP; 97161-GP; 97165-GO; 97530-GO; A9270-GY; G0008; J1644

== ENCOUNTER 2018-12-24 15:37 | Observation (INO) | payer MEDICAID ==
--- NOTE | 2018-12-24 15:57 | EDM.PDOC ---
ED HPI GENERAL MEDICAL PROBLEM - General Chief Complaint: Neuro Symptoms/Deficits Stated Complaint: STROKE CODE Time Seen by Provider: 12/24/18 15:40 Source of Information: Reports: Patient, EMS, Family (sisters), Old Records, RN , RN Notes Reviewed History Limitations: Reports: Altered Mental Status - History of Present Illness INITIAL COMMENTS - FREE TEXT/NARRATIVE: Pt arrives to ER from [facility] by ambulance with report that at 1500HRS witnesses reported the pt stared off and was unresponsive for an unknown length of time, then the pt c/o blurry vision, was "profoundly confused ", and off balance with what appeared to them as right sided weakness. EMS was called and upon paramedics initial assessment a "stroke code" was called. Pre-arrival STROKE CODE: 1521HRS Arrival to ER: 1538HRS Blood Sugar on arrival: 87 GCS on arrival: [address] scanner on EMS gurney. Pt sister reports pt skips his seizure medication (Keppra) frequently on school days due to drowsy side effect. Pt's sister reports pt has no jerking or posturing with his seizures, but rather just "zones out, and stares off into space for anywhere from a few seconds to a minute". Following his seizures, the pt's sister states that he acts "exactly as he is currently" with confusion, blurred vision, right sided weakness, and loss of coordination. Onset: Today, Sudden Duration: Constant Location: Reports: Generalized Severity: Severe Improves with: Reports: None Worsens with: Reports: None Associated Symptoms: Reports: No Other Symptoms - Related Data Allergies Allergy/AdvReac Type Severity Reaction Status Date / Time bee venom protein (honey bee) Allergy Shortness Verified 12/24/18 17:43 of Breath Home Meds: Home Meds Acetaminophen [Tylenol Extra Strength] 500 mg PO Q6HR PRN 12/11/18 [History] Topiramate [Topamax] 25 mg PO BID 12/11/18 [History] levETIRAcetam [Keppra] 1,000 mg PO BID 12/24/18 [History] Past Medical History - Past Health History Medical/Surgical History: Denies Medical/Surgical History HEENT History: Reports: Hard of Hearing Other HEENT History: to left ear, bad eyes Cardiovascular History: Reports: None Respiratory History: Reports: None Gastrointestinal History: Reports: None Genitourinary History: Reports: None Musculoskeletal History: Reports: Other (See Below) 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 Neurological History: Reports: Brain Injury, Seizure Other Neuro History: Seizure disorder, brain hematoma from a snow shovel Psychiatric History: Reports: Addiction Other Psychiatric History: alcohol Endocrine/Metabolic History: Reports: None Hematologic History: Reports: None Immunologic History: Reports: None Oncologic (Cancer) History: Reports: None Dermatologic History: Reports: None - Infectious Disease History Infectious Disease History: Reports: Chicken Pox - Past Surgical History Head Surgeries/Procedures: Reports: None Social & Family History - Family History Family Medical History: Noncontributory Cardiac: Reports: CAD, Hypertension Oncologic: Reports: None - Caffeine Use Caffeine Use: Reports: Coffee, Soda Caffeine Use Comment: unknown - Alcohol Use Alcohol Use History: Yes Alcohol Use Frequency: Binges - Living Situation & Occupation Living situation: Reports: Single, Alone Occupation: Unemployed ED ROS GENERAL - Review of Systems Review Of Systems: Unable To Obtain ED EXAM, NEURO - Physical Exam Exam: See Below Exam Limited By: Altered Mental Status General Appearance: Alert, No Apparent Distress, Thin Eye Exam: Bilateral Eye: EOMI, Normal Inspection, PERRL Ears: Normal External Exam, Hearing Grossly Normal Nose: Normal Inspection, Normal Mucosa, No Blood Throat/Mouth: Normal Lips, Normal Oropharynx, Normal Voice, No Airway Compromise Head Exam: Atraumatic, Normocephalic Neck: Normal Inspection, Supple, Non-Tender, Full Range of Motion. No: Lymphadenopathy (L), Lymphadenopathy (R) Respiratory/Chest: No Respiratory Distress, Lungs Clear, Normal Breath Sounds, No Accessory Muscle Use, Chest Non-Tender Cardiovascular: Regular Rate, Rhythm, No Edema GI/Abdominal: Normal Bowel Sounds, Soft, Non-Tender, No Organomegaly, No Distention, No Abnormal Bruit, No Mass Neurological: Alert, Normal Dorsiflexion, Normal Plantar Flexion, Abnormal Motor (Right sided weakness), Other (Oriented to person only. GCS on arrival 14. See veneer cutter of NIH stroke scale.) Back Exam: Normal Inspection Extremities: Normal Inspection, Normal Range of Motion, Non-Tender, No Pedal Edema, Normal Capillary Refill Psychiatric: Normal Mood Skin Exam: Warm, Dry, Intact, Normal Color, No Rash EKG INTERPRETATION EKG Date: 12/24/18 Time: 16:33 Rhythm: Other (sinus bradycardia) Rate (Beats/Min): 53 Pilot: LAD-Left Pilot Deviation (nonspecific IVCD. Left ventricular hypertrophy) Course - Vital Signs Last Recorded V/S: Last Vital Signs Temp 98.9 F 12/24/18 16:06 Pulse 97 12/24/18 16:06 Resp 18 12/24/18 16:06 BP 126/77 12/24/18 16:06 Pulse Ox 97 12/24/18 16:06 - Orders/Labs/Meds Orders: Active Orders 24 hr Category Date Time Status Blood Glucose Check, Bedside [RC] ONETIME Care 12/24/18 15:43 Active EKG 12 Lead [EKG Documentation Completion] [RC] STAT Care 12/24/18 15:43 Active Peripheral IV Care [] . DIRECTED Care 12/24/18 15:44 Active Chest 1V Frontal [CR] Stat Exams 12/24/18 15:43 Taken Head wo Cont [CT] Stat Exams 12/24/18 15:40 Taken DRUG SCREEN URINE BIORAD [URCHEM] Stat Lab 12/24/18 15:44 Ordered LEVETIRACETAM, S [REF] Stat Lab 12/24/18 17:36 Ordered UA RFX LEYLA AND CULT IF INDIC [URIN] Stat Lab 12/24/18 15:44 Ordered Sodium Chloride 0.9% [Normal Saline] 1,000 ml Med 12/24/18 16:51 Active IV .BOLUS Sodium Chloride 0.9% [Saline Flush] Med 12/24/18 15:44 Active 10 ml FLUSH ASDIRECTED PRN Peripheral IV Insertion Adult [OM.PC] Stat Oth 12/24/18 15:43 Ordered Medication Orders Sodium Chloride (Normal Saline) 1,000 mls @ 999 mls/hr IV .BOLUS ONE Stop: 12/24/18 17:51 Last Admin: 12/24/18 17:12 Dose: 999 mls/hr Sodium Chloride (Saline Flush) 10 ml FLUSH ASDIRECTED PRN PRN Reason: Keep Vein Open Last Admin: 12/24/18 16:37 Dose: 10 ml Labs: Laboratory Tests 12/24/18 12/24/18 12/24/18 Range/Units 15:40 15:57 15:57 WBC 5.2 (5.0-10.0) 10^3/uL RBC 4.33 L (4.6-6.2) 10^6/uL Hgb 13.6 L (14.0-18.0) g/dL Hct 41.8 (40.0-54.0) % MCV 96.5 (80-100) fL MCH 31.4 (27.0-34.0) pg MCHC 32.5 L (33.0-35.0) g/dL Plt Count 265 (150-450) 10^3/uL Neut % (Auto) 58.7 (42.2-75.2) % Lymph % (Auto) 23.6 (20.5-50.1) % Zapata % (Auto) 9.4 H (2-8) % Eos % (Auto) 7.5 H (1.0-3.0) % Baso % (Auto) 0.8 (0.0-1.0) % PT 9.5 (9.0-12.0) SEC INR 0.9 (0.9-1.2) APTT 26.3 (22.0-34.0) SEC Sodium (135-145) mmol/L Potassium (3.6-5.0) mmol/L Chloride (101-111) mmol/L Carbon Dioxide (21.0-31.0) mmol/L Anion Gap BUN (7-18) mg/dL Creatinine (0.6-1.3) mg/dL Est Cr Clr Drug Dosing mL/min Estimated GFR (MDRD) BUN/Creatinine Ratio Glucose (74-105) mg/dL POC Glucose 87 (70-105) mg/dl Lactic Acid (0.5-2.2) mmol/L Calcium (8.4-10.2) mg/dl Magnesium (1.8-2.5) mg/dL Total Bilirubin (0.2-1.0) mg/dL AST (10-42) IU/L ALT (10-60) IU/L Alkaline Phosphatase (42-121) IU/L Troponin I (0.00-0.02) ng/ml Total Protein (6.7-8.2) g/dl Albumin (3.2-5.5) g/dl Globulin Albumin/Globulin Ratio Ethyl Alcohol mg/dL 12/24/18 12/24/18 12/24/18 Range/Units 15:57 15:57 16:38 WBC (5.0-10.0) 10^3/uL RBC (4.6-6.2) 10^6/uL Hgb (14.0-18.0) g/dL Hct (40.0-54.0) % MCV (80-100) fL MCH (27.0-34.0) pg MCHC (33.0-35.0) g/dL Plt Count (150-450) 10^3/uL Neut % (Auto) (42.2-75.2) % Lymph % (Auto) (20.5-50.1) % [place]ata % (Auto) (2-8) % Eos % (Auto) (1.0-3.0) % Baso % (Auto) (0.0-1.0) % PT (9.0-12.0) SEC INR (0.9-1.2) APTT (22.0-34.0) SEC Sodium 142 (135-145) mmol/L Potassium 4.8 (3.6-5.0) mmol/L Chloride 105 (101-111) mmol/L Carbon Dioxide 30.0 (21.0-31.0) mmol/L Anion Gap 11.8 BUN 9 (7-18) mg/dL Creatinine 0.8 (0.6-1.3) mg/dL Est Cr Clr Drug Dosing 97.47 mL/min Estimated GFR (MDRD) > 60 BUN/Creatinine Ratio 11.25 Glucose 91 (74-105) mg/dL POC Glucose 86 (70-105) mg/dl Lactic Acid 0.8 (0.5-2.2) mmol/L Calcium 8.8 (8.4-10.2) mg/dl Magnesium 2.0 (1.8-2.5) mg/dL Total Bilirubin 0.6 (0.2-1.0) mg/dL AST 20 (10-42) IU/L ALT 23 (10-60) IU/L Alkaline Phosphatase 69 (42-121) IU/L Troponin I < 0.02 (0.00-0.02) ng/ml Total Protein 7.3 (6.7-8.2) g/dl Albumin 4.2 (3.2-5.5) g/dl Globulin 3.1 Albumin/Globulin Ratio 1.35 Ethyl Alcohol < 5 mg/dL Meds: Medications Generic Name Dose Route Start Last Admin Trade Name Freandre PRN Reason Stop Dose Admin Sodium Chloride 1,000 mls @ 999 mls/hr 12/24/18 16:51 12/24/18 17:12 Normal Saline IV 12/24/18 17:51 999 mls/hr .BOLUS ONE Administration Sodium Chloride 10 ml 12/24/18 15:44 12/24/18 16:37 Saline Flush FLUSH 10 ml ASDIRECTED PRN Administration Keep Vein Open Discontinued Medications Generic Name Dose Route Start Last Admin Trade Name Freq PRN Reason Stop Dose Admin Levetiracetam 1,500 mg/ Sodium 115 mls @ 400 mls/hr 12/24/18 16:52 12/24/18 17:04 Chloride IV 12/24/18 17:06 400 mls/hr ONETIME ONE Administration Ketorolac Tromethamine 30 mg 12/24/18 16:56 12/24/18 17:07 Toradol IVPUSH 12/24/18 16:57 30 mg ONETIME ONE Administration Ondansetron HCl 4 mg 12/24/18 16:56 12/24/18 17:07 Zofran IV 12/24/18 16:57 4 mg ONETIME ONE Administration - Radiology Interpretation Free Text/Narrative:: [facility] Final Radiology Report Call: [phone] assistance Online chat: [email or web address] Adda Name: AIDEN ZHU Age: 53Years M Date: 12/24/2018 SSN: -- : [id number] Study: CT HEAD WO Requesting Physician: DAISY ALFARO Images: 177 Addl Studies: Provided Clinical History: Contrast: Without Contrast Medium: Contrast Amount: Contrast Method: Page 1 of 2 PROCEDURE INFORMATION: Exam: CT Head Without Contrast Exam date and time: 12/24/2018 3:43 PM Clinical history: 53 years old, male; Other: Blurred vision, unsteady, confused TECHNIQUE: Imaging protocol: Computed tomography of the head without contrast. Radiation optimization: All CT scans at this facility use at least one of these dose optimization techniques: automated exposure control; mA and/or kV adjustment per patient size (includes targeted exams where dose is matched to clinical indication); or iterative reconstruction. Other technique: STROKE PROTOCOL was implemented. COMPARISON: CT Head wo Cont 12/02/2018 9:27 PM FINDINGS: Brain: Normal. No hemorrhage. Unremarkable white matter. No mass effect. Ventricles: Normal. No hydrocephalus. Bones/joints: Normal. Skull base and overlying calvarium are intact. No lytic or osteosclerotic lesions. Sinuses: Visualized sinuses are unremarkable. No fluid levels. Mastoid air cells: Visualized mastoid air cells are well aerated. Soft tissues: Unremarkable. IMPRESSION: 1. Negative head CT. 2. [place] Stroke Program Early CT Score (ASPECTS) = 10. 3. No significant interval change when compared to the CT Head wo Cont 2018 9:27 PM. Thank you for allowing us to participate in the care of your patient. AIDEN ZHU | Final Radiology Report CONFIDENTIALITY STATEMENT This report is intended only for use by the referring physician, and only in accordance with law. If you received this in error, call [phone]. Page 2 of 2 Dictated and Authenticated by: Danny Phillip MD 12/24/2018 3:54 PM Central Time ([place] & [place]) [facility] Final Radiology Report Call: [phone] assistance Online chat: [email or web address] Adda Name: AIDEN ZHU Age: 53Years M Date: 12/24/2018 SSN: -- : [id number] Study: XR CHEST 1 VIEW FRONTAL Requesting Physician: DAISY ALFARO Images: 1 Addl Studies: Provided Clinical History: Contrast: Contrast Medium: Contrast Amount: Contrast Method: CONFIDENTIALITY STATEMENT This report is intended only for use by the referring physician, and only in accordance with law. If you received this in error, call [phone]. Page 1 of 1 PROCEDURE INFORMATION: Exam: XR Chest, 1 View Exam date and time: 12/24/2018 4:02 PM Clinical history: 53 years old, male; Other: Confusion TECHNIQUE: Imaging protocol: XR of the chest Views: 1 view. COMPARISON: CR Chest 1V Frontal 12/02/2018 10:13 PM FINDINGS: Lungs: Ovoid hyperdensity projecting over left lateral mid lung and scapular wing not significantly changed when compared to CR Chest 1V Frontal 12/02/2018 10:13 PM. There are no suspicious pulmonary nodules or areas of lung consolidation. Pleural space: Costophrenic angles are sharp. No pneumothorax. No pleural mass. Heart/Mediastinum: The cardiac silhouette is not enlarged. Bones/joints: Age appropriate. Other findings: The patient has been extubated since 12/02/2018 study. IMPRESSION: No active disease of the chest. Thank you for allowing us to participate in the care of your patient. Dictated and Authenticated by: Danny Phillip MD 12/24/2018 4:12 PM Central Time ([place] & [place]) - Re-Assessments/Exams Free Text/Narrative Re-Assessment/Exam: 12/24/18 17:50 Pt is well beyond what I would expect for a postictal confusion period, however his family states this is not unusual for the pt. I plan to admit him to observation to Dr. Reveles. Departure - Departure Time of Disposition: 17:49 (admit to Dr. Reveles) Disposition: Refer to Observation Condition: Undetermined Clinical Impression: Post-traumatic seizures, Noncompliance with medication regimen Altered mental status Qualifiers: Altered mental status type: disorientation Qualified Code(s): R41.0 - Disorientation, unspecified - Discharge Information *PRESCRIPTION DRUG MONITORING PROGRAM REVIEWED*: No *COPY OF PRESCRIPTION DRUG MONITORING REPORT IN PATIENT BREANNE: No Forms: ED Department Discharge - My Orders Last 24 Hours: My Active Orders 12/24/18 15:40 Head wo Cont [CT] Stat 12/24/18 15:43 Blood Glucose Check, Bedside [] ONETIME EKG 12 Lead [EKG Documentation Completion] [RC] STAT Chest 1V Frontal [CR] Stat Peripheral IV Insertion Adult [OM.PC] Stat 12/24/18 15:44 Peripheral IV Care [] . DIRECTED DRUG SCREEN URINE BIORAD [URCHEM] Stat UA RFX LEYLA AND CULT IF INDIC [URIN] Stat Sodium Chloride 0.9% [Saline Flush] 10 ml FLUSH ASDIRECTED PRN 12/24/18 16:51 Sodium Chloride 0.9% [Normal Saline] 1,000 ml IV .BOLUS 12/24/18 17:36 LEVETIRACETAM, S [REF] Stat - Assessment/Plan Last 24 Hours: My Active Orders 12/24/18 15:40 Head wo Cont [CT] Stat 12/24/18 15:43 Blood Glucose Check, Bedside [] ONETIME EKG 12 Lead [EKG Documentation Completion] [RC] STAT Chest 1V Frontal [CR] Stat Peripheral IV Insertion Adult [OM.PC] Stat 12/24/18 15:44 Peripheral IV Care [] . DIRECTED DRUG SCREEN URINE BIORAD [URCHEM] Stat UA RFX LEYLA AND CULT IF INDIC [URIN] Stat Sodium Chloride 0.9% [Saline Flush] 10 ml FLUSH ASDIRECTED PRN 12/24/18 16:51 Sodium Chloride 0.9% [Normal Saline] 1,000 ml IV .BOLUS 12/24/18 17:36 LEVETIRACETAM, S [REF] Stat
[2018-12-24 16:17] LABS: ANION GAP 11.8; CHLORIDE,CL 105 mmol/L (101-111); SODIUM,NA 142 mmol/L (135-145)
[2018-12-24] MEDS: Sodium Chloride 0.9% 10 ML Syringe FLUSH PRN ×2 (16:37→19:45)
[2018-12-24] MEDS ORDERED: Sodium Chloride 0.9% 1,000 ML IV ONE (16:51)
[2018-12-24] MEDS ORDERED: levETIRAcetam 1,500 MG in Sodium Chloride 0.9% 100 ML IV ONE (16:52)
[2018-12-24] MEDS ORDERED: Ketorolac 30 MG/ML SDV IVPUSH ONE (16:56)
[2018-12-24] MEDS ORDERED: Ondansetron 4 MG/2 ML SDV IV ONE (16:56)
[2018-12-24] MEDS ORDERED: Ondansetron 4 MG Tab.DIS PO PRN (18:40)
[2018-12-24] MEDS ORDERED: Acetaminophen 325 MG Tab PO PRN (18:40)
[2018-12-24] MEDS ORDERED: Ibuprofen 400 MG Tab PO PRN (18:40)
--- NOTE | 2018-12-24 18:52 | PCM.HP ---
H&P History of Present Illness - General Date of Service: 12/24/18 Admit Problem/Dx: Admission Diagnosis/Problem Admission Diagnosis/Problem Altered mental status Source of Information: EMS, Provider, Other - History of Present Illness Initial Comments - Free Text/Narative: The patient is a 53-year-old M with a history of seizure disorder. 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 The patient has a relatively frequent seizure episodes which are of absence type. He usually stairs blankly No tonic-clonic activities. There is usually postictal confusion. Sometimes Wallace 's paralysis Last episode of seizure was admitted of November while hospitalized at [facility]. Stroke workup including MRI and CT were negative. The patient's Keppra and Topamax was increased. It took a few days for him for the confusion and gait abnormality to clear. According to family the patient sometimes skips the Keppra dose when he goes to school. Today he had the school day where he was noted to stare into the space, become confused. Was complaining of headache. Right-sided weakness or dysmetria was noted. The patient was brought into the emergency room. Stroke workup started. - Related Data Allergies/Adverse Reactions: Allergies Allergy/AdvReac Type Severity Reaction Status Date / Time bee venom protein (honey bee) Allergy Shortness Verified 12/24/18 17:43 of Breath Home Medications: Home Meds Acetaminophen [Tylenol Extra Strength] 500 mg PO Q6HR PRN 12/11/18 [History] Topiramate [Topamax] 50 mg PO BID 12/11/18 [History] levETIRAcetam [Levetiracetam] 1,500 mg PO BID 12/24/18 [History] Past Medical History - Past Health History Medical/Surgical History: Denies Medical/Surgical History HEENT History: Reports: Hard of Hearing Other HEENT History: to left ear, bad eyes Cardiovascular History: Reports: None Respiratory History: Reports: None Gastrointestinal History: Reports: None Genitourinary History: Reports: None Musculoskeletal History: Reports: Other (See Below) 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 Neurological History: Reports: Brain Injury, Seizure Other Neuro History: Seizure disorder, brain hematoma from a snow shovel Psychiatric History: Reports: Addiction Other Psychiatric History: alcohol Endocrine/Metabolic History: Reports: None Hematologic History: Reports: None Immunologic History: Reports: None Oncologic (Cancer) History: Reports: None Dermatologic History: Reports: None - Infectious Disease History Infectious Disease History: Reports: Chicken Pox - Past Surgical History Head Surgeries/Procedures: Reports: None Social & Family History - Family History Family Medical History: Noncontributory Cardiac: Reports: CAD, Hypertension Oncologic: Reports: None - Tobacco Use Smoking Status *Q: Former Smoker Used Tobacco, but Quit: Yes Month/Year Tobacco Last Used: 09/04 Second Hand Smoke Exposure: No - Caffeine Use Caffeine Use: Reports: Coffee, Soda Caffeine Use Comment: unknown - Alcohol Use Date of Last Drink: 11/17/18 - Recreational Drug Use Recreational Drug Use: No Other Recreational Drug Type: patient stated "yes" but sister stated no. - Living Situation & Occupation Living situation: Reports: Single, Alone Occupation: Unemployed H&P Review of Systems - Review of Systems: Review Of Systems: See Below (Limited since the patient is confused. Most information is obtained from sister at bedside) General: Denies: Fever Pulmonary: Denies: Shortness of Breath Cardiovascular: Denies: Chest Pain, Edema Gastrointestinal: Denies: Abdominal Pain Exam - Exam Exam: See Below - Vital Signs Vital Signs: Last Vital Signs Temp 37.2 C 12/24/18 16:06 Pulse 57 L 12/24/18 18:12 Resp 18 12/24/18 18:12 BP 110/65 12/24/18 18:12 Pulse Ox 97 12/24/18 18:42 Weight: 58.598 kg - Exam General: Alert. No: Oriented Neck: Supple Lungs: Clear to Auscultation, Normal Respiratory Effort Cardiovascular: Regular Rate, Regular Rhythm GI/Abdominal Exam: Normal Bowel Sounds, Soft, Non-Tender Extremities: No Pedal Edema Skin: Warm, Dry Neurological: Cranial Nerves Intact Neuro Extensive - Mental Status: Alert, Disorientation to Time, Slow Response to Commands. No: Oriented x3 Psychiatric: Alert, Normal Affect, Normal Mood - Patient Data Lab Results Last 24 hrs: Laboratory Results - last 24 hr 12/24/18 12/24/18 12/24/18 Range/Units 15:40 15:57 15:57 WBC 5.2 (5.0-10.0) 10^3/uL RBC 4.33 L (4.6-6.2) 10^6/uL Hgb 13.6 L (14.0-18.0) g/dL Hct 41.8 (40.0-54.0) % MCV 96.5 (80-100) fL MCH 31.4 (27.0-34.0) pg MCHC 32.5 L (33.0-35.0) g/dL Plt Count 265 (150-450) 10^3/uL Neut % (Auto) 58.7 (42.2-75.2) % Lymph % (Auto) 23.6 (20.5-50.1) % [place] % (Auto) 9.4 H (2-8) % Eos % (Auto) 7.5 H (1.0-3.0) % Baso % (Auto) 0.8 (0.0-1.0) % PT 9.5 (9.0-12.0) SEC INR 0.9 (0.9-1.2) APTT 26.3 (22.0-34.0) SEC Sodium (135-145) mmol/L Potassium (3.6-5.0) mmol/L Chloride (101-111) mmol/L Carbon Dioxide (21.0-31.0) mmol/L Anion Gap BUN (7-18) mg/dL Creatinine (0.6-1.3) mg/dL Est Cr Clr Drug Dosing mL/min Estimated GFR (MDRD) BUN/Creatinine Ratio Glucose (74-105) mg/dL POC Glucose 87 (70-105) mg/dl Lactic Acid (0.5-2.2) mmol/L Calcium (8.4-10.2) mg/dl Magnesium (1.8-2.5) mg/dL Total Bilirubin (0.2-1.0) mg/dL AST (10-42) IU/L ALT (10-60) IU/L Alkaline Phosphatase (42-121) IU/L Troponin I (0.00-0.02) ng/ml Total Protein (6.7-8.2) g/dl Albumin (3.2-5.5) g/dl Globulin Albumin/Globulin Ratio Ethyl Alcohol mg/dL 12/24/18 12/24/18 12/24/18 Range/Units 15:57 15:57 16:38 WBC (5.0-10.0) 10^3/uL RBC (4.6-6.2) 10^6/uL Hgb (14.0-18.0) g/dL Hct (40.0-54.0) % MCV (80-100) fL MCH (27.0-34.0) pg MCHC (33.0-35.0) g/dL Plt Count (150-450) 10^3/uL Neut % (Auto) (42.2-75.2) % Lymph % (Auto) (20.5-50.1) % [place] % (Auto) (2-8) % Eos % (Auto) (1.0-3.0) % Baso % (Auto) (0.0-1.0) % PT (9.0-12.0) SEC INR (0.9-1.2) APTT (22.0-34.0) SEC Sodium 142 (135-145) mmol/L Potassium 4.8 (3.6-5.0) mmol/L Chloride 105 (101-111) mmol/L Carbon Dioxide 30.0 (21.0-31.0) mmol/L Anion Gap 11.8 BUN 9 (7-18) mg/dL Creatinine 0.8 (0.6-1.3) mg/dL Est Cr Clr Drug Dosing 97.47 mL/min Estimated GFR (MDRD) > 60 BUN/Creatinine Ratio 11.25 Glucose 91 (74-105) mg/dL POC Glucose 86 (70-105) mg/dl Lactic Acid 0.8 (0.5-2.2) mmol/L Calcium 8.8 (8.4-10.2) mg/dl Magnesium 2.0 (1.8-2.5) mg/dL Total Bilirubin 0.6 (0.2-1.0) mg/dL AST 20 (10-42) IU/L ALT 23 (10-60) IU/L Alkaline Phosphatase 69 (42-121) IU/L Troponin I < 0.02 (0.00-0.02) ng/ml Total Protein 7.3 (6.7-8.2) g/dl Albumin 4.2 (3.2-5.5) g/dl Globulin 3.1 Albumin/Globulin Ratio 1.35 Ethyl Alcohol < 5 mg/dL Result Diagrams: 12/24/18 15:57 12/24/18 15:57 - Problem List (1) Altered mental status SNOMED Code(s): 446939725 ICD Code: R41.82 - ALTERED MENTAL STATUS, UNSPECIFIED Status: Acute Current Visit: Yes Qualifiers: Altered mental status type: disorientation Qualified Code(s): R41.0 - Disorientation, unspecified (2) Seizure SNOMED Code(s): 16580985 ICD Code: R56.9 - UNSPECIFIED CONVULSIONS Status: Acute Current Visit: No Problem List Initiated/Reviewed/Updated: Yes Orders Last 24hrs: Active Orders 24 hr Category Date Time Status Admission Diagnosis [ADT] Urgent ADT 12/24/18 18:00 Ordered Admission Status [Patient Status] [ADT] Routine ADT 12/24/18 18:00 Active Antiembolic Devices [RC] PER UNIT ROUTINE Care 12/24/18 18:43 Ordered Oxygen Therapy [RC] PRN Care 12/24/18 18:42 Ordered Up With Assistance [RC] ASDIRECTED Care 12/24/18 18:40 Ordered VTE/DVT Education [RC] PER UNIT ROUTINE Care 12/24/18 18:42 Ordered Vital Signs [RC] Q4H Care 12/24/18 18:42 Ordered OT Evaluation and Treatment [CONS] Routine Cons 12/24/18 18:45 Ordered PT Evaluation and Treatment [CONS] Routine Cons 12/24/18 18:45 Ordered Regular Diet [DIET] Diet 12/24/18 Breakfast Ordered Chest 1V Frontal [CR] Stat Exams 12/24/18 15:43 Taken Head wo Cont [CT] Stat Exams 12/24/18 15:40 Taken BASIC METABOLIC PANEL,BMP [CHEM] AM Lab 12/25/18 05:11 Ordered CBC W/O DIFF,HEMOGRAM [HEME] AM Lab 12/25/18 05:11 Ordered DRUG SCREEN URINE BIORAD [URCHEM] Stat Lab 12/24/18 15:44 Ordered LEVETIRACETAM, S [REF] Stat Lab 12/24/18 17:54 Received UA RFX LEYLA AND CULT IF INDIC [URIN] Stat Lab 12/24/18 15:44 Ordered Acetaminophen [Tylenol] Med 12/24/18 18:40 Ordered 650 mg PO Q4H PRN Heparin Sodium Med 12/24/18 22:00 Ordered 5,000 units SUBCUT Q8HR Ibuprofen [Motrin] Med 12/24/18 18:40 Ordered 400 mg PO Q6H PRN Ondansetron [Zofran ODT] Med 12/24/18 18:40 Ordered 4 mg PO Q6H PRN Ondansetron [Zofran] Med 12/24/18 18:40 Ordered 4 mg IVPUSH Q4H PRN Sodium Chloride 0.9% [Saline Flush] Med 12/24/18 15:44 Active 10 ml FLUSH ASDIRECTED PRN Topiramate [Topamax] Med 12/24/18 21:00 Ordered 50 mg PO BID levETIRAcetam [Levetiracetam] Med 12/25/18 09:00 Ordered 1,500 mg PO BID Antiembolic Hose [OM.PC] Per Unit Routine Oth 12/24/18 18:42 Ordered Peripheral IV Insertion Adult [OM.PC] Stat Oth 12/24/18 15:43 Ordered Resuscitation Status Routine Resus Stat 12/24/18 18:40 Ordered Medication Orders Acetaminophen (Tylenol) 650 mg PO Q4H PRN PRN Reason: Pain (Mild 1-3)/fever Heparin Sodium (Porcine) (Heparin Sodium) 5,000 units SUBCUT Q8HR MYNOR Ibuprofen (Motrin) 400 mg PO Q6H PRN PRN Reason: Pain (moderate 4-6) Levetiracetam (Keppra) 1,500 mg PO BID MYNOR Non-Formulary Medication (Topiramate [Topamax]) 50 mg PO BID MYNOR Ondansetron HCl (Zofran Odt) 4 mg PO Q6H PRN PRN Reason: nausea, able to take PO Ondansetron HCl (Zofran) 4 mg IVPUSH Q4H PRN PRN Reason: Nausea/Vomiting Sodium Chloride (Saline Flush) 10 ml FLUSH ASDIRECTED PRN PRN Reason: Keep Vein Open Last Admin: 12/24/18 16:37 Dose: 10 ml Assessment/Plan Comment:: Acute encephalopathy Likely due to seizure, much less likely due to stroke We'll monitor closely Seizure disorder We'll increase Keppra and Topamax now Seizure precautions IV hydration Follow electrolytes and replace them as needed DVT prophylaxis with subcutaneous heparin
[2018-12-24] MEDS: Ondansetron 4 MG/2 ML SDV IVPUSH PRN (19:45)
[2018-12-24] MEDS: NS + KCl 20mEq/L 1,000 ML IV SCH (19:59)
[2018-12-24] MEDS ORDERED: levETIRAcetam 500 MG Tab PO SCH (21:00)
[2018-12-24] MEDS: Heparin Sodium 5,000 Units/ML Vial SUBCUT SCH (21:38)
[2018-12-24] MEDS: Topiramate 25 MG Tab PO SCH (21:38)
[2018-12-24] MEDS ORDERED: Metoclopramide 10 MG/2 ML SDV IVPUSH PRN (22:49)
[2018-12-25] MEDS: Heparin Sodium 5,000 Units/ML Vial SUBCUT SCH ×3 (04:59→21:01)
[2018-12-25] MEDS: Ondansetron 4 MG/2 ML SDV IVPUSH PRN (04:59)
[2018-12-25] MEDS: NS + KCl 20mEq/L 1,000 ML IV SCH ×2 (05:53→16:54)
[2018-12-25 07:01] LABS: CHLORIDE,CL 104 mmol/L (101-111); SODIUM,NA 138 mmol/L (135-145)
[2018-12-25] MEDS: levETIRAcetam 500 MG Tab PO SCH ×2 (08:30→20:57)
[2018-12-25] MEDS: Topiramate 25 MG Tab PO SCH ×2 (08:31→20:57)
--- NOTE | 2018-12-25 13:15 | PCM.PN ---
- General Info Date of Service: 12/25/18 Admission Dx/Problem (Free Text): Admission Diagnosis/Problem Admission Diagnosis/Problem Altered mental status Subjective Update: He is much more awake. During the night had episodes of vomiting. This appears improved Was tolerating breakfast. No chest pain, no shortness of breath. No focal neurological complain - Review of Systems General: Reports: Fever (Low-grade temperatures are noted), Weakness, Fatigue Pulmonary: Denies: Shortness of Breath Cardiovascular: Denies: Chest Pain Gastrointestinal: Reports: Nausea, Vomiting. Denies: Abdominal Pain - Patient Data Vitals - Most Recent: Last Vital Signs Temp 37.7 C 12/25/18 11:25 Pulse 63 12/25/18 11:25 Resp 16 12/25/18 11:25 BP 92/56 L 12/25/18 11:25 Pulse Ox 94 L 12/25/18 11:25 Weight - Most Recent: 58.598 kg I&O - Last 24 Hours: Intake & Output 12/24/18 12/25/18 12/25/18 22:59 06:59 14:59 Intake Total 990 20 Output Total 1150 600 Balance -1150 390 20 Lab Results Last 24 Hours: Laboratory Results - last 24 hr 12/24/18 12/24/18 12/24/18 Range/Units 15:40 15:57 15:57 WBC 5.2 (5.0-10.0) 10^3/uL RBC 4.33 L (4.6-6.2) 10^6/uL Hgb 13.6 L (14.0-18.0) g/dL Hct 41.8 (40.0-54.0) % MCV 96.5 (80-100) fL MCH 31.4 (27.0-34.0) pg MCHC 32.5 L (33.0-35.0) g/dL Plt Count 265 (150-450) 10^3/uL Neut % (Auto) 58.7 (42.2-75.2) % Lymph % (Auto) 23.6 (20.5-50.1) % [place] % (Auto) 9.4 H (2-8) % Eos % (Auto) 7.5 H (1.0-3.0) % Baso % (Auto) 0.8 (0.0-1.0) % PT 9.5 (9.0-12.0) SEC INR 0.9 (0.9-1.2) APTT 26.3 (22.0-34.0) SEC Sodium (135-145) mmol/L Potassium (3.6-5.0) mmol/L Chloride (101-111) mmol/L Carbon Dioxide (21.0-31.0) mmol/L Anion Gap BUN (7-18) mg/dL Creatinine (0.6-1.3) mg/dL Est Cr Clr Drug Dosing mL/min Estimated GFR (MDRD) BUN/Creatinine Ratio Glucose (74-105) mg/dL POC Glucose 87 (70-105) mg/dl Lactic Acid (0.5-2.2) mmol/L Calcium (8.4-10.2) mg/dl Magnesium (1.8-2.5) mg/dL Total Bilirubin (0.2-1.0) mg/dL AST (10-42) IU/L ALT (10-60) IU/L Alkaline Phosphatase (42-121) IU/L Troponin I (0.00-0.02) ng/ml Total Protein (6.7-8.2) g/dl Albumin (3.2-5.5) g/dl Globulin Albumin/Globulin Ratio Urine Color (YELLOW) Urine Appearance (CLEAR) Urine pH (5.0-9.0) Ur Specific Buckner (1.005-1.030) Urine Protein (NEGATIVE) Urine Glucose (UA) (NEGATIVE) Urine Ketones (NEGATIVE) Urine Occult Blood (NEGATIVE) Urine Nitrite (NEGATIVE) Urine Bilirubin (NEGATIVE) Urine Urobilinogen (0.2-1.0) mg/dL Ur Leukocyte Esterase (NEGATIVE) Urine Opiates Screen (NEGATIVE) Ur Oxycodone Screen (NEGATIVE) Urine Methadone Screen (NEGATIVE) Ur Barbiturates Screen (NEGATIVE) U Tricyclic Antidepress (NEGATIVE) Ur Phencyclidine Scrn (NEGATIVE) Ur Amphetamine Screen (NEGATIVE) U Methamphetamines Scrn (NEGATIVE) Urine MDMA Screen (NEGATIVE) U Benzodiazepines Scrn (NEGATIVE) Urine Cocaine Screen (NEGATIVE) U Marijuana (THC) Screen (NEGATIVE) Ethyl Alcohol mg/dL 12/24/18 12/24/18 12/24/18 Range/Units 15:57 15:57 16:38 WBC (5.0-10.0) 10^3/uL RBC (4.6-6.2) 10^6/uL Hgb (14.0-18.0) g/dL Hct (40.0-54.0) % MCV (80-100) fL MCH (27.0-34.0) pg MCHC (33.0-35.0) g/dL Plt Count (150-450) 10^3/uL Neut % (Auto) (42.2-75.2) % Lymph % (Auto) (20.5-50.1) % [place] % (Auto) (2-8) % Eos % (Auto) (1.0-3.0) % Baso % (Auto) (0.0-1.0) % PT (9.0-12.0) SEC INR (0.9-1.2) APTT (22.0-34.0) SEC Sodium 142 (135-145) mmol/L Potassium 4.8 (3.6-5.0) mmol/L Chloride 105 (101-111) mmol/L Carbon Dioxide 30.0 (21.0-31.0) mmol/L Anion Gap 11.8 BUN 9 (7-18) mg/dL Creatinine 0.8 (0.6-1.3) mg/dL Est Cr Clr Drug Dosing 97.47 mL/min Estimated GFR (MDRD) > 60 BUN/Creatinine Ratio 11.25 Glucose 91 (74-105) mg/dL POC Glucose 86 (70-105) mg/dl Lactic Acid 0.8 (0.5-2.2) mmol/L Calcium 8.8 (8.4-10.2) mg/dl Magnesium 2.0 (1.8-2.5) mg/dL Total Bilirubin 0.6 (0.2-1.0) mg/dL AST 20 (10-42) IU/L ALT 23 (10-60) IU/L Alkaline Phosphatase 69 (42-121) IU/L Troponin I < 0.02 (0.00-0.02) ng/ml Total Protein 7.3 (6.7-8.2) g/dl Albumin 4.2 (3.2-5.5) g/dl Globulin 3.1 Albumin/Globulin Ratio 1.35 Urine Color (YELLOW) Urine Appearance (CLEAR) Urine pH (5.0-9.0) Ur Specific Buckner (1.005-1.030) Urine Protein (NEGATIVE) Urine Glucose (UA) (NEGATIVE) Urine Ketones (NEGATIVE) Urine Occult Blood (NEGATIVE) Urine Nitrite (NEGATIVE) Urine Bilirubin (NEGATIVE) Urine Urobilinogen (0.2-1.0) mg/dL Ur Leukocyte Esterase (NEGATIVE) Urine Opiates Screen (NEGATIVE) Ur Oxycodone Screen (NEGATIVE) Urine Methadone Screen (NEGATIVE) Ur Barbiturates Screen (NEGATIVE) U Tricyclic Antidepress (NEGATIVE) Ur Phencyclidine Scrn (NEGATIVE) Ur Amphetamine Screen (NEGATIVE) U Methamphetamines Scrn (NEGATIVE) Urine MDMA Screen (NEGATIVE) U Benzodiazepines Scrn (NEGATIVE) Urine Cocaine Screen (NEGATIVE) U Marijuana (THC) Screen (NEGATIVE) Ethyl Alcohol < 5 mg/dL 12/24/18 12/24/18 12/25/18 Range/Units 19:40 19:40 06:20 WBC 8.9 (5.0-10.0) 10^3/uL RBC 4.33 L (4.6-6.2) 10^6/uL Hgb 13.6 L (14.0-18.0) g/dL Hct 41.6 (40.0-54.0) % MCV 96.1 (80-100) fL MCH 31.4 (27.0-34.0) pg MCHC 32.7 L (33.0-35.0) g/dL Plt Count 271 (150-450) 10^3/uL Neut % (Auto) (42.2-75.2) % Lymph % (Auto) (20.5-50.1) % [place] % (Auto) (2-8) % Eos % (Auto) (1.0-3.0) % Baso % (Auto) (0.0-1.0) % PT (9.0-12.0) SEC INR (0.9-1.2) APTT (22.0-34.0) SEC Sodium (135-145) mmol/L Potassium (3.6-5.0) mmol/L Chloride (101-111) mmol/L Carbon Dioxide (21.0-31.0) mmol/L Anion Gap BUN (7-18) mg/dL Creatinine (0.6-1.3) mg/dL Est Cr Clr Drug Dosing mL/min Estimated GFR (MDRD) BUN/Creatinine Ratio Glucose (74-105) mg/dL POC Glucose (70-105) mg/dl Lactic Acid (0.5-2.2) mmol/L Calcium (8.4-10.2) mg/dl Magnesium (1.8-2.5) mg/dL Total Bilirubin (0.2-1.0) mg/dL AST (10-42) IU/L ALT (10-60) IU/L Alkaline Phosphatase (42-121) IU/L Troponin I (0.00-0.02) ng/ml Total Protein (6.7-8.2) g/dl Albumin (3.2-5.5) g/dl Globulin Albumin/Globulin Ratio Urine Color Yellow (YELLOW) Urine Appearance Clear (CLEAR) Urine pH 6.5 (5.0-9.0) Ur Specific Buckner 1.025 (1.005-1.030) Urine Protein Negative (NEGATIVE) Urine Glucose (UA) Negative (NEGATIVE) Urine Ketones Negative (NEGATIVE) Urine Occult Blood Negative (NEGATIVE) Urine Nitrite Negative (NEGATIVE) Urine Bilirubin Negative (NEGATIVE) Urine Urobilinogen 0.2 (0.2-1.0) mg/dL Ur Leukocyte Esterase Negative (NEGATIVE) Urine Opiates Screen Negative (NEGATIVE) Ur Oxycodone Screen Negative (NEGATIVE) Urine Methadone Screen Negative (NEGATIVE) Ur Barbiturates Screen Negative (NEGATIVE) U Tricyclic Antidepress Negative (NEGATIVE) Ur Phencyclidine Scrn Negative (NEGATIVE) Ur Amphetamine Screen Negative (NEGATIVE) U Methamphetamines Scrn Negative (NEGATIVE) Urine MDMA Screen Negative (NEGATIVE) U Benzodiazepines Scrn Negative (NEGATIVE) Urine Cocaine Screen Negative (NEGATIVE) U Marijuana (THC) Screen Negative (NEGATIVE) Ethyl Alcohol mg/dL 12/25/18 Range/Units 06:20 WBC (5.0-10.0) 10^3/uL RBC (4.6-6.2) 10^6/uL Hgb (14.0-18.0) g/dL Hct (40.0-54.0) % MCV (80-100) fL MCH (27.0-34.0) pg MCHC (33.0-35.0) g/dL Plt Count (150-450) 10^3/uL Neut % (Auto) (42.2-75.2) % Lymph % (Auto) (20.5-50.1) % [place] % (Auto) (2-8) % Eos % (Auto) (1.0-3.0) % Baso % (Auto) (0.0-1.0) % PT (9.0-12.0) SEC INR (0.9-1.2) APTT (22.0-34.0) SEC Sodium 138 (135-145) mmol/L Potassium 4.0 (3.6-5.0) mmol/L Chloride 104 (101-111) mmol/L Carbon Dioxide 27.0 (21.0-31.0) mmol/L Anion Gap 11.0 BUN 8 (7-18) mg/dL Creatinine 0.7 (0.6-1.3) mg/dL Est Cr Clr Drug Dosing 102.31 mL/min Estimated GFR (MDRD) > 60 BUN/Creatinine Ratio Glucose 103 (74-105) mg/dL POC Glucose (70-105) mg/dl Lactic Acid (0.5-2.2) mmol/L Calcium 8.5 (8.4-10.2) mg/dl Magnesium (1.8-2.5) mg/dL Total Bilirubin (0.2-1.0) mg/dL AST (10-42) IU/L ALT (10-60) IU/L Alkaline Phosphatase (42-121) IU/L Troponin I (0.00-0.02) ng/ml Total Protein (6.7-8.2) g/dl Albumin (3.2-5.5) g/dl Globulin Albumin/Globulin Ratio Urine Color (YELLOW) Urine Appearance (CLEAR) Urine pH (5.0-9.0) Ur Specific [place] (1.005-1.030) Urine Protein (NEGATIVE) Urine Glucose (UA) (NEGATIVE) Urine Ketones (NEGATIVE) Urine Occult Blood (NEGATIVE) Urine Nitrite (NEGATIVE) Urine Bilirubin (NEGATIVE) Urine Urobilinogen (0.2-1.0) mg/dL Ur Leukocyte Esterase (NEGATIVE) Urine Opiates Screen (NEGATIVE) Ur Oxycodone Screen (NEGATIVE) Urine Methadone Screen (NEGATIVE) Ur Barbiturates Screen (NEGATIVE) U Tricyclic Antidepress (NEGATIVE) Ur Phencyclidine Scrn (NEGATIVE) Ur Amphetamine Screen (NEGATIVE) U Methamphetamines Scrn (NEGATIVE) Urine MDMA Screen (NEGATIVE) U Benzodiazepines Scrn (NEGATIVE) Urine Cocaine Screen (NEGATIVE) U Marijuana (THC) Screen (NEGATIVE) Ethyl Alcohol mg/dL Med Orders - Current: Current Medications Acetaminophen (Tylenol) 650 mg PO Q4H PRN PRN Reason: Pain (Mild 1-3)/fever Heparin Sodium (Porcine) (Heparin Sodium) 5,000 units SUBCUT Q8HR [facility] Last Admin: 12/25/18 04:59 Dose: 5,000 units Potassium Chloride/Sodium Chloride (Normal Saline With 20 Meq Kcl) 1,000 mls @ 100 mls/hr IV ASDIRECTED [facility] Last Admin: 12/25/18 05:53 Dose: 100 mls/hr Ibuprofen (Motrin) 400 mg PO Q6H PRN PRN Reason: Pain (moderate 4-6) Levetiracetam (Keppra) 1,500 mg PO BID [facility] Last Admin: 12/25/18 08:30 Dose: 1,500 mg Metoclopramide HCl (Reglan) 10 mg IVPUSH Q6H PRN PRN Reason: Nausea Last Admin: 12/24/18 23:08 Dose: 10 mg Ondansetron HCl (Zofran Odt) 4 mg PO Q6H PRN PRN Reason: nausea, able to take PO Ondansetron HCl (Zofran) 4 mg IVPUSH Q4H PRN PRN Reason: Nausea/Vomiting Last Admin: 12/25/18 04:59 Dose: 4 mg Sodium Chloride (Saline Flush) 10 ml FLUSH ASDIRECTED PRN PRN Reason: Keep Vein Open Last Admin: 12/24/18 19:45 Dose: 10 ml Topiramate (Topamax) 50 mg PO BID [facility] Last Admin: 12/25/18 08:31 Dose: 50 mg Discontinued Medications Levetiracetam 1,500 mg/ Sodium (Chloride) 115 mls @ 400 mls/hr IV ONETIME ONE Stop: 12/24/18 17:06 Last Admin: 12/24/18 17:04 Dose: 400 mls/hr Sodium Chloride (Normal Saline) 1,000 mls @ 999 mls/hr IV .BOLUS ONE Stop: 12/24/18 17:51 Last Admin: 12/24/18 17:12 Dose: 999 mls/hr Ketorolac Tromethamine (Toradol) 30 mg IVPUSH ONETIME ONE Stop: 12/24/18 16:57 Last Admin: 12/24/18 17:07 Dose: 30 mg Levetiracetam (Keppra) 1,500 mg PO BID MYNOR Last Admin: 12/24/18 21:49 Dose: Not Given Ondansetron HCl (Zofran) 4 mg IV ONETIME ONE Stop: 12/24/18 16:57 Last Admin: 12/24/18 17:07 Dose: 4 mg - Exam General: Alert, Oriented Neck: Supple Lungs: Clear to Auscultation, Normal Respiratory Effort Cardiovascular: Regular Rate, Regular Rhythm Extremities: No Pedal Edema - Problem List & Annotations (1) Altered mental status SNOMED Code(s): 101777285 Code(s): R41.82 - ALTERED MENTAL STATUS, UNSPECIFIED Status: Acute Current Visit: Yes Qualifiers: Altered mental status type: disorientation Qualified Code(s): R41.0 - Disorientation, unspecified (2) Seizure SNOMED Code(s): 02920311 Code(s): R56.9 - UNSPECIFIED CONVULSIONS Status: Acute Current Visit: No - Problem List Review Problem List Initiated/Reviewed/Updated: Yes - My Orders Last 24 Hours: My Active Orders 12/24/18 18:40 Up With Assistance [RC] ASDIRECTED Acetaminophen [Tylenol] 650 mg PO Q4H PRN Ibuprofen [Motrin] 400 mg PO Q6H PRN Ondansetron [Zofran ODT] 4 mg PO Q6H PRN Ondansetron [Zofran] 4 mg IVPUSH Q4H PRN Resuscitation Status Routine 12/24/18 18:42 Oxygen Therapy [RC] .PRN VTE/DVT Education [RC] PER UNIT ROUTINE Vital Signs [RC] 00,04,08,12,16,20 Antiembolic Hose [OM.PC] Per Unit Routine 12/24/18 18:43 Antiembolic Devices [RC] PER UNIT ROUTINE 12/24/18 18:45 OT Evaluation and Treatment [CONS] Routine PT Evaluation and Treatment [CONS] Routine 12/24/18 18:54 Seizure Precautions [OM.PC] Routine 12/24/18 19:00 NS + KCl 20mEq/L [Normal Saline with 20 mEq KCl] 1,000 ml IV ASDIRECTED 12/24/18 21:00 Topiramate [Topamax] 50 mg PO BID 12/24/18 22:00 Heparin Sodium 5,000 units SUBCUT Q8HR 12/24/18 22:49 Metoclopramide [Reglan] 10 mg IVPUSH Q6H PRN 12/25/18 09:00 levETIRAcetam [Keppra] 1,500 mg PO BID - Plan Plan:: Acute encephalopathy Likely due to seizure, much less likely due to stroke Appears improving We'll monitor closely Nausea, vomiting Likely secondary to seizure Improving Seizure disorder increased Keppra and Topamax to the doses that he was last discharged from [facility] Seizure precautions IV hydration Follow electrolytes and replace them as needed DVT prophylaxis with subcutaneous heparin
[2018-12-26] MEDS: NS + KCl 20mEq/L 1,000 ML IV SCH (03:14)
[2018-12-26] MEDS: Heparin Sodium 5,000 Units/ML Vial SUBCUT SCH ×3 (06:00→21:43)
[2018-12-26 06:53] LABS: CHLORIDE,CL 109 mmol/L (101-111); SODIUM,NA 137 mmol/L (135-145)
[2018-12-26] MEDS: Topiramate 25 MG Tab PO SCH ×2 (09:16→20:26)
[2018-12-26] MEDS: levETIRAcetam 500 MG Tab PO SCH ×2 (09:17→20:27)
--- NOTE | 2018-12-26 11:05 | PCM.PN ---
- General Info Date of Service: 12/26/18 Subjective Update: He is much more awake. But still has episodes of on and off confusion. Visual Hallucinations were noted No further vomiting. Been tolerating food No chest pain, no shortness of breath. No focal neurological complain Still requiring walker for stability with ambulation - Review of Systems General: Reports: Weakness. Denies: Fever Pulmonary: Denies: Shortness of Breath Cardiovascular: Denies: Chest Pain, Edema Neurological: Reports: Confusion, Dizziness, Difficulty Walking. Denies: Trouble Speaking - Patient Data Vitals - Most Recent: Last Vital Signs Temp 36.7 C 12/26/18 08:12 Pulse 64 12/26/18 08:12 Resp 20 12/26/18 08:12 BP 99/53 L 12/26/18 08:12 Pulse Ox 97 12/26/18 08:12 Weight - Most Recent: 58.598 kg I&O - Last 24 Hours: Intake & Output 12/25/18 12/26/18 12/26/18 22:59 06:59 14:59 Intake Total 1101 1000 120 Output Total 700 2400 Balance 401 -1400 120 Lab Results Last 24 Hours: Laboratory Results - last 24 hr 12/26/18 Range/Units 06:20 Sodium 137 (135-145) mmol/L Potassium 4.0 (3.6-5.0) mmol/L Chloride 109 (101-111) mmol/L Carbon Dioxide 22.0 (21.0-31.0) mmol/L Anion Gap 10.0 BUN 10 (7-18) mg/dL Creatinine 0.6 (0.6-1.3) mg/dL Est Cr Clr Drug Dosing 119.37 mL/min Estimated GFR (MDRD) > 60 Glucose 93 (74-105) mg/dL Calcium 8.5 (8.4-10.2) mg/dl Phosphorus 2.2 L (2.5-4.6) mg/dL Magnesium 1.9 (1.8-2.5) mg/dL Med Orders - Current: Current Medications Acetaminophen (Tylenol) 650 mg PO Q4H PRN PRN Reason: Pain (Mild 1-3)/fever Heparin Sodium (Porcine) (Heparin Sodium) 5,000 units SUBCUT Q8HR [facility] Last Admin: 12/26/18 06:00 Dose: 5,000 units Ibuprofen (Motrin) 400 mg PO Q6H PRN PRN Reason: Pain (moderate 4-6) Levetiracetam (Keppra) 1,000 mg PO BID [facility] Metoclopramide HCl (Reglan) 10 mg IVPUSH Q6H PRN PRN Reason: Nausea Last Admin: 12/24/18 23:08 Dose: 10 mg Ondansetron HCl (Zofran Odt) 4 mg PO Q6H PRN PRN Reason: nausea, able to take PO Ondansetron HCl (Zofran) 4 mg IVPUSH Q4H PRN PRN Reason: Nausea/Vomiting Last Admin: 12/25/18 04:59 Dose: 4 mg Sodium Chloride (Saline Flush) 10 ml FLUSH ASDIRECTED PRN PRN Reason: Keep Vein Open Last Admin: 12/24/18 19:45 Dose: 10 ml Sodium Phosphate (Neutra-Phos) 500 mg PO Q6H [facility] Stop: 12/26/18 17:16 Topiramate (Topamax) 50 mg PO BID [facility] Last Admin: 12/26/18 09:16 Dose: 50 mg Discontinued Medications Levetiracetam 1,500 mg/ Sodium (Chloride) 115 mls @ 400 mls/hr IV ONETIME ONE Stop: 12/24/18 17:06 Last Admin: 12/24/18 17:04 Dose: 400 mls/hr Sodium Chloride (Normal Saline) 1,000 mls @ 999 mls/hr IV .BOLUS ONE Stop: 12/24/18 17:51 Last Admin: 12/24/18 17:12 Dose: 999 mls/hr Potassium Chloride/Sodium Chloride (Normal Saline With 20 Meq Kcl) 1,000 mls @ 100 mls/hr IV ASDIRECTED [facility] Last Admin: 12/26/18 03:14 Dose: 100 mls/hr Ketorolac Tromethamine (Toradol) 30 mg IVPUSH ONETIME ONE Stop: 12/24/18 16:57 Last Admin: 12/24/18 17:07 Dose: 30 mg Levetiracetam (Keppra) 1,500 mg PO BID [facility] Last Admin: 12/24/18 21:49 Dose: Not Given Levetiracetam (Keppra) 1,500 mg PO BID [facility] Last Admin: 11/09/19 09:17 Dose: 1,500 mg Ondansetron HCl (Zofran) 4 mg IV ONETIME ONE Stop: 12/24/18 16:57 Last Admin: 12/24/18 17:07 Dose: 4 mg - Exam General: Alert, Oriented Neck: Supple Lungs: Clear to Auscultation, Normal Respiratory Effort GI/Abdominal Exam: Normal Bowel Sounds, Soft, Non-Tender Extremities: No Pedal Edema - Problem List & Annotations (1) Altered mental status SNOMED Code(s): 967185846 Code(s): R41.82 - ALTERED MENTAL STATUS, UNSPECIFIED Status: Acute Current Visit: Yes Qualifiers: Altered mental status type: disorientation Qualified Code(s): R41.0 - Disorientation, unspecified (2) Seizure SNOMED Code(s): 19506414 Code(s): R56.9 - UNSPECIFIED CONVULSIONS Status: Acute Current Visit: No - Problem List Review Problem List Initiated/Reviewed/Updated: Yes - My Orders Last 24 Hours: My Active Orders 12/26/18 11:15 Phosphorus #1 [Neutra-Phos] 500 mg PO Q6H 12/26/18 21:00 levETIRAcetam [Keppra] 1,000 mg PO BID - Plan Plan:: Acute encephalopathy Postictal status Likely due to seizure Appears improving We'll monitor closely Increase physical activity Nausea, vomiting Likely secondary to seizure Improving Seizure disorder increased Keppra and Topamax to the doses that he was last discharged from [facility] He is hallucinating, confused Will cut back a little bit the Keppra continue Seizure precautions stop IV hydration DVT prophylaxis with subcutaneous heparin
[2018-12-26] MEDS: Phosphorus #1 250 MG Tab PO SCH ×2 (11:20→17:39)
[2018-12-26] MEDS: Sodium Chloride 0.9% 10 ML Syringe FLUSH PRN (20:34)
[2018-12-27] MEDS: Heparin Sodium 5,000 Units/ML Vial SUBCUT SCH ×2 (05:53→15:37)
[2018-12-27] MEDS: levETIRAcetam 500 MG Tab PO SCH (08:21)
[2018-12-27] MEDS: Topiramate 25 MG Tab PO SCH (08:21)
--- NOTE | 2018-12-27 10:09 | PCM.DCSUM1 ---
Discharge Summary - Hospital Course Free Text/Narrative:: presented after an absence seizure Acute encephalopathy Postictal status Likely due to seizure has been slowly improving tolerating physical activity Nausea, vomiting Likely secondary to seizure resolved Seizure disorder increased Keppra and Topamax to the doses that he was last discharged from [facility] (Keppra 1500 mg bid and Topamax 50 mg BID) He was hallucinating, confused I have cut back a little bit the Keppra to 1000 mg bid hallucinations resolved follow up with neurology in the clinic Diagnosis: Stroke: No - Discharge Data Discharge Date: 12/27/18 Discharge Disposition: Home, Self-Care 01 Condition: Stable - Referral to Home Health Primary Care Physician: PCP Unknown - Discharge Diagnosis/Problem(s) (1) Altered mental status SNOMED Code(s): 178228016 ICD Code: R41.82 - ALTERED MENTAL STATUS, UNSPECIFIED Status: Acute Current Visit: Yes Qualifiers: Altered mental status type: disorientation Qualified Code(s): R41.0 - Disorientation, unspecified (2) Seizure SNOMED Code(s): 75475582 ICD Code: R56.9 - UNSPECIFIED CONVULSIONS Status: Acute Current Visit: No - Patient Summary/Data Consults: Consultations 12/24/18 18:45 OT Evaluation and Treatment [CONS] Routine PT Evaluation and Treatment [CONS] Routine - Patient Instructions Diet: Heart Healthy Diet Activity: As Tolerated - Discharge Plan *PRESCRIPTION DRUG MONITORING PROGRAM REVIEWED*: No *COPY OF PRESCRIPTION DRUG MONITORING REPORT IN PATIENT BREANNE: No Prescriptions/Med Rec: levETIRAcetam [Keppra] 1,000 mg PO BID #60 tablet Topiramate [Topamax] 50 mg PO BID #60 tablet Home Medications: Home Meds Acetaminophen [Tylenol Extra Strength] 500 mg PO Q6HR PRN 12/11/18 [History] Topiramate [Topamax] 50 mg PO BID #60 tablet 12/27/18 [Rx] levETIRAcetam [Keppra] 1,000 mg PO BID #60 tablet 12/27/18 [Rx] Oxygen Therapy Mode: Room Air Referrals: PCP,Unknown [Primary Care Provider] - ( in 2-3 days) Goyo Chambers MD [Ordering Only Provider] - (first available ) - Discharge Summary/Plan Comment DC Time >30 min.: No - General Info Date of Service: 12/27/18 - Review of Systems General: Reports: Weakness (improving). Denies: Fever Pulmonary: Denies: Shortness of Breath Cardiovascular: Denies: Chest Pain Gastrointestinal: Denies: Abdominal Pain Neurological: Denies: Confusion - Patient Data Vitals - Most Recent: Last Vital Signs Temp 37.1 C 12/27/18 07:58 Pulse 54 L 12/27/18 07:58 Resp 20 12/27/18 07:58 BP 89/54 L 12/27/18 07:58 Pulse Ox 100 12/27/18 07:58 Weight - Most Recent: 58.598 kg I&O - Last 24 hours: Intake & Output 12/26/18 12/27/18 12/27/18 22:59 06:59 14:59 Intake Total 540 200 Output Total 1100 400 Balance -560 -200 Med Orders - Current: Current Medications Acetaminophen (Tylenol) 650 mg PO Q4H PRN PRN Reason: Pain (Mild 1-3)/fever Heparin Sodium (Porcine) (Heparin Sodium) 5,000 units SUBCUT Q8HR [facility] Last Admin: 12/27/18 05:53 Dose: 5,000 units Ibuprofen (Motrin) 400 mg PO Q6H PRN PRN Reason: Pain (moderate 4-6) Levetiracetam (Keppra) 1,000 mg PO BID [facility] Last Admin: 12/27/18 08:21 Dose: 1,000 mg Metoclopramide HCl (Reglan) 10 mg IVPUSH Q6H PRN PRN Reason: Nausea Last Admin: 12/24/18 23:08 Dose: 10 mg Ondansetron HCl (Zofran Odt) 4 mg PO Q6H PRN PRN Reason: nausea, able to take PO Ondansetron HCl (Zofran) 4 mg IVPUSH Q4H PRN PRN Reason: Nausea/Vomiting Last Admin: 12/25/18 04:59 Dose: 4 mg Sodium Chloride (Saline Flush) 10 ml FLUSH ASDIRECTED PRN PRN Reason: Keep Vein Open Last Admin: 12/26/18 20:34 Dose: 10 ml Topiramate (Topamax) 50 mg PO BID [facility] Last Admin: 12/27/18 08:21 Dose: 50 mg Discontinued Medications Levetiracetam 1,500 mg/ Sodium (Chloride) 115 mls @ 400 mls/hr IV ONETIME ONE Stop: 12/24/18 17:06 Last Admin: 12/24/18 17:04 Dose: 400 mls/hr Sodium Chloride (Normal Saline) 1,000 mls @ 999 mls/hr IV .BOLUS ONE Stop: 12/24/18 17:51 Last Admin: 12/24/18 17:12 Dose: 999 mls/hr Potassium Chloride/Sodium Chloride (Normal Saline With 20 Meq Kcl) 1,000 mls @ 100 mls/hr IV ASDIRECTED [facility] Last Admin: 12/26/18 03:14 Dose: 100 mls/hr Ketorolac Tromethamine (Toradol) 30 mg IVPUSH ONETIME ONE Stop: 12/24/18 16:57 Last Admin: 12/24/18 17:07 Dose: 30 mg Levetiracetam (Keppra) 1,500 mg PO BID [facility] Last Admin: 12/24/18 21:49 Dose: Not Given Levetiracetam (Keppra) 1,500 mg PO BID [facility] Last Admin: 12/26/18 09:17 Dose: 1,500 mg Ondansetron HCl (Zofran) 4 mg IV ONETIME ONE Stop: 12/24/18 16:57 Last Admin: 12/24/18 17:07 Dose: 4 mg Sodium Phosphate (Neutra-Phos) 500 mg PO Q6H [facility] Stop: 12/26/18 17:16 Last Admin: 12/26/18 17:39 Dose: 500 mg - Exam General: Reports: Alert, Oriented Neck: Reports: Supple Lungs: Reports: Clear to Auscultation, Normal Respiratory Effort GI/Abdominal Exam: Normal Bowel Sounds, Soft, Non-Tender Extremities: No Pedal Edema Skin: Reports: Warm
[2018-12-27 13:07] VITALS: BP 93/56; PULSE 56
== END 2018-12-27 15:30 | disposition home or self-care (01) ==
LOC: DL.ED 15:37 → DL.MS 18:00
PROVIDERS: ADMIT Internal Medicine; ATTEND Internal Medicine
DX: G93.40 Encephalopathy, unspecified (principal); R11.2 Nausea with vomiting, unspecified; G40.909 Epilepsy, unspecified, not intractable, without status epilepticus; M19.90 Unspecified osteoarthritis, unspecified site; Z91.030 Bee allergy status; Z87.891 Personal history of nicotine dependence
CPT/HCPCS: 36415; 70450; 71045; 80048; 80053; 80177; 80305; 80320; 81003; 82962; 83605; 83735; 84100; 84484; 85025; 85027; 85610; 85730; 93005; 99285; A9270; J1644; J1885; J1953; J2405; J2765; J3480; J7030; J7050; G0480

== ENCOUNTER 2019-02-15 15:15 | Emergency (ER) | payer MEDICAID ==
[2019-02-15 15:37] VITALS: BP 113/69; PULSE 54
[2019-02-15] MEDS ORDERED: Sodium Chloride 0.9% 10 ML Syringe FLUSH PRN (15:39)
[2019-02-15 16:20] LABS: ANION GAP 11.1; CHLORIDE,CL 104 mmol/L (101-111); SODIUM,NA 138 mmol/L (135-145)
[2019-02-15] MEDS ORDERED: levETIRAcetam 500 MG in Sodium Chloride 0.9% 100 ML IV ONE (17:55)
[2019-02-15] MEDS ORDERED: LORazepam 2 MG/ML Syringe IVPUSH ONE ×2 (18:00→20:25)
[2019-02-15] MEDS ORDERED: LORazepam 2 MG/ML Syringe ONE (20:23)
--- NOTE | 2019-02-25 14:21 | EDM.PDOC ---
Scribed by Ev Abarca 02/15/19 1484 for Iva Doshi NP ED HPI GENERAL MEDICAL PROBLEM - General Source of Information: Reports: Patient, Family, RN, RN Notes Reviewed History Limitations: Reports: Other (confusion) - History of Present Illness Onset: Today Duration: Constant Location: Reports: Head Severity: Moderate Improves with: Reports: None Worsens with: Reports: None Associated Symptoms: Reports: No Other Symptoms <Iva Doshi - Last Filed: 02/25/19 14:20> <Na Lucero - Last Filed: 02/25/19 15:31> - General Chief Complaint: Neuro Symptoms/Deficits Stated Complaint: SEIZURES Time Seen by Provider: 02/15/19 15:30 - History of Present Illness INITIAL COMMENTS - FREE TEXT/NARRATIVE: Patient presents to ER with instructor from [facility]. 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 He states he was alert , but would not respond verbally. He became very confused, speech garbled. States patient did not fall wit no trauma. Sister he lives with states he has been taking his Keppra and Topamax. Patient continues to be alert with garbled speech. He became agitated. GCS was 11. (Ev Abarca) Patient presents to ER with instructor from [facility]. 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 He states he was alert , but would not respond verbally. He became very confused, speech garbled. States patient did not fall wit no trauma. Sister he lives with states he has been taking his Keppra and Topamax. Patient continues to be alert with garbled speech. He became agitated. GCS was 11. (Iva Doshi) - Related Data Allergies Allergy/AdvReac Type Severity Reaction Status Date / Time bee venom protein (honey bee) Allergy Shortness Verified 02/15/19 15:29 of Breath Home Meds: Home Meds Acetaminophen [Tylenol Extra Strength] 500 mg PO Q6HR PRN 12/11/18 [History] Topiramate [Topamax] 50 mg PO BID #60 tablet 12/27/18 [Rx] levETIRAcetam [Keppra] 1,000 mg PO BID #60 tablet 12/27/18 [Rx] Past Medical History - Past Health History Medical/Surgical History: Denies Medical/Surgical History HEENT History: Reports: Hard of Hearing Other HEENT History: to left ear, bad eyes Cardiovascular History: Reports: None Respiratory History: Reports: None Gastrointestinal History: Reports: None Genitourinary History: Reports: None Musculoskeletal History: Reports: Other (See Below) 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 Neurological History: Reports: Brain Injury, Seizure Other Neuro History: Seizure disorder, brain hematoma from a snow shovel Psychiatric History: Reports: Addiction Other Psychiatric History: alcohol Endocrine/Metabolic History: Reports: None Hematologic History: Reports: None Immunologic History: Reports: None Oncologic (Cancer) History: Reports: None Dermatologic History: Reports: None - Infectious Disease History Infectious Disease History: Reports: Chicken Pox - Past Surgical History Head Surgeries/Procedures: Reports: None <Iva Doshi - Last Filed: 02/25/19 14:20> Social & Family History - Family History Family Medical History: Noncontributory Cardiac: Reports: CAD, Hypertension Oncologic: Reports: None - Tobacco Use Smoking Status *Q: Never Smoker Second Hand Smoke Exposure: No - Caffeine Use Caffeine Use: Reports: Coffee Caffeine Use Comment: unknown - Recreational Drug Use Recreational Drug Use: No - Living Situation & Occupation Living situation: Reports: Single, Alone Occupation: Unemployed <Iva Doshi - Last Filed: 02/25/19 14:20> ED ROS GENERAL - Review of Systems Review Of Systems: Comprehensive ROS is negative, except as noted in HPI. <Iva Doshi - Last Filed: 02/25/19 14:20> - Physical Exam Exam: See Below Exam Limited By: Other (confused) General Appearance: Alert Eye Exam: Bilateral Eye: EOMI, Normal Inspection, PERRL Ears: Normal External Exam, Normal Canal, Hearing Grossly Normal, Normal TMs Nose: Normal Inspection, Normal Mucosa, No Blood Throat/Mouth: Normal Inspection, Normal Lips, Normal Teeth, Normal Gums, Normal Oropharynx, Normal Voice, No Airway Compromise Head Exam: Atraumatic, Normocephalic Neck: Normal Inspection, Supple, Non-Tender, Full Range of Motion Respiratory/Chest: No Respiratory Distress, Lungs Clear, Normal Breath Sounds, No Accessory Muscle Use, Chest Non-Tender Cardiovascular: Normal Peripheral Pulses, Regular Rate, Rhythm, No Edema, No Gallop, No JVD, No Murmur, No Rub GI/Abdominal: Normal Bowel Sounds, Soft, Non-Tender, No Organomegaly, No Distention, No Abnormal Bruit, No Mass (Male) Exam: Deferred Rectal (Males) Exam: Deferred Neuro Exam (Abbreviated): Other (garbled speech and confusion) Back Exam: Normal Inspection, Full Range of Motion, NT Extremities: Normal Inspection, Normal Range of Motion, Non-Tender, No Pedal Edema, Normal Capillary Refill Psychiatric: Other (agitated) Skin Exam: Warm, Dry, Intact, Normal Color, No Rash <Iva Doshi - Last Filed: 02/25/19 14:20> Course <Iva Doshi - Last Filed: 02/25/19 14:20> <Na Lucero - Last Filed: 02/25/19 15:31> - Vital Signs Last Recorded V/S: Last Vital Signs Temp 98.4 F 02/15/19 15:29 Pulse 54 L 02/15/19 15:29 Resp 16 02/15/19 15:29 BP 113/69 02/15/19 15:29 Pulse Ox 99 02/15/19 15:29 - Orders/Labs/Meds Labs: Laboratory Tests 02/15/19 02/15/19 02/15/19 Range/Units 15:53 15:53 17:25 WBC 5.0 (5.0-10.0) 10^3/uL RBC 4.29 L (4.6-6.2) 10^6/uL Hgb 13.7 L (14.0-18.0) g/dL Hct 39.5 L (40.0-54.0) % MCV 92.1 D (80-100) fL MCH 31.9 (27.0-34.0) pg MCHC 34.7 (33.0-35.0) g/dL Plt Count 226 (150-450) 10^3/uL Neut % (Auto) 55.0 (42.2-75.2) % Lymph % (Auto) 31.1 (20.5-50.1) % [place] % (Auto) 9.1 H (2-8) % Eos % (Auto) 4.4 H (1.0-3.0) % Baso % (Auto) 0.4 (0.0-1.0) % Sodium 138 (135-145) mmol/L Potassium 4.1 (3.6-5.0) mmol/L Chloride 104 (101-111) mmol/L Carbon Dioxide 27.0 (21.0-31.0) mmol/L Anion Gap 11.1 BUN 13 (7-18) mg/dL Creatinine 0.7 (0.6-1.3) mg/dL Est Cr Clr Drug Dosing TNP Estimated GFR (MDRD) > 60 BUN/Creatinine Ratio 18.57 Glucose 109 H (74-105) mg/dL Calcium 8.4 (8.4-10.2) mg/dl Total Bilirubin 0.5 (0.2-1.0) mg/dL AST 18 (10-42) IU/L ALT 15 (10-60) IU/L Alkaline Phosphatase 52 (42-121) IU/L Total Protein 6.6 L (6.7-8.2) g/dl Albumin 4.1 (3.2-5.5) g/dl Globulin 2.5 Albumin/Globulin Ratio 1.64 Urine Color Yellow (YELLOW) Urine Appearance Clear (CLEAR) Urine pH 6.0 (5.0-9.0) Ur Specific [place] 1.025 (1.005-1.030) Urine Protein Negative (NEGATIVE) Urine Glucose (UA) Negative (NEGATIVE) Urine Ketones Negative (NEGATIVE) Urine Occult Blood Negative (NEGATIVE) Urine Nitrite Negative (NEGATIVE) Urine Bilirubin Negative (NEGATIVE) Urine Urobilinogen 1.0 (0.2-1.0) mg/dL Ur Leukocyte Esterase Negative (NEGATIVE) Urine Opiates Screen (NEGATIVE) Ur Oxycodone Screen (NEGATIVE) Urine Methadone Screen (NEGATIVE) Ur Barbiturates Screen (NEGATIVE) U Tricyclic Antidepress (NEGATIVE) Ur Phencyclidine Scrn (NEGATIVE) Ur Amphetamine Screen (NEGATIVE) U Methamphetamines Scrn (NEGATIVE) Urine MDMA Screen (NEGATIVE) U Benzodiazepines Scrn (NEGATIVE) Urine Cocaine Screen (NEGATIVE) U Marijuana (THC) Screen (NEGATIVE) Ethyl Alcohol < 5 mg/dL 02/15/19 Range/Units 17:25 WBC (5.0-10.0) 10^3/uL RBC (4.6-6.2) 10^6/uL Hgb (14.0-18.0) g/dL Hct (40.0-54.0) % MCV (80-100) fL MCH (27.0-34.0) pg MCHC (33.0-35.0) g/dL Plt Count (150-450) 10^3/uL Neut % (Auto) (42.2-75.2) % Lymph % (Auto) (20.5-50.1) % [place] % (Auto) (2-8) % Eos % (Auto) (1.0-3.0) % Baso % (Auto) (0.0-1.0) % Sodium (135-145) mmol/L Potassium (3.6-5.0) mmol/L Chloride (101-111) mmol/L Carbon Dioxide (21.0-31.0) mmol/L Anion Gap BUN (7-18) mg/dL Creatinine (0.6-1.3) mg/dL Est Cr Clr Drug Dosing Estimated GFR (MDRD) BUN/Creatinine Ratio Glucose (74-105) mg/dL Calcium (8.4-10.2) mg/dl Total Bilirubin (0.2-1.0) mg/dL AST (10-42) IU/L ALT (10-60) IU/L Alkaline Phosphatase (42-121) IU/L Total Protein (6.7-8.2) g/dl Albumin (3.2-5.5) g/dl Globulin Albumin/Globulin Ratio Urine Color (YELLOW) Urine Appearance (CLEAR) Urine pH (5.0-9.0) Ur Specific [place] (1.005-1.030) Urine Protein (NEGATIVE) Urine Glucose (UA) (NEGATIVE) Urine Ketones (NEGATIVE) Urine Occult Blood (NEGATIVE) Urine Nitrite (NEGATIVE) Urine Bilirubin (NEGATIVE) Urine Urobilinogen (0.2-1.0) mg/dL Ur Leukocyte Esterase (NEGATIVE) Urine Opiates Screen Negative (NEGATIVE) Ur Oxycodone Screen Negative (NEGATIVE) Urine Methadone Screen Negative (NEGATIVE) Ur Barbiturates Screen Negative (NEGATIVE) U Tricyclic Antidepress Negative (NEGATIVE) Ur Phencyclidine Scrn Negative (NEGATIVE) Ur Amphetamine Screen Negative (NEGATIVE) U Methamphetamines Scrn Negative (NEGATIVE) Urine MDMA Screen Negative (NEGATIVE) U Benzodiazepines Scrn Negative (NEGATIVE) Urine Cocaine Screen Negative (NEGATIVE) U Marijuana (THC) Screen Negative (NEGATIVE) Ethyl Alcohol mg/dL Meds: Medications Discontinued Medications Generic Name Dose Route Start Last Admin Trade Name Freq PRN Reason Stop Dose Admin Levetiracetam 500 mg/ Sodium 105 mls @ 400 mls/hr 02/15/19 17:55 02/15/19 18: 12 Chloride IV 02/15/19 18:09 400 mls/hr ONETIME ONE Administration Lorazepam 1 mg 02/15/19 18:00 02/15/19 18:11 Ativan IVPUSH 02/15/19 18:01 1 mg ONETIME ONE Administration Lorazepam Confirm 02/15/19 20:23 02/15/19 20:47 Ativan Administered 02/15/19 20:24 Not Given Dose 2 mg .ROUTE .STK-MED ONE Lorazepam 2 mg 02/15/19 20:25 02/15/19 20:25 Ativan IVPUSH 02/15/19 20:26 2 mg ONETIME ONE Administration Sodium Chloride 10 ml 02/15/19 15:39 02/15/19 16:07 Saline Flush FLUSH 10 ml ASDIRECTED PRN Administration Keep Vein Open - Radiology Interpretation Free Text/Narrative:: Head CT: 12/24/2018 FINDINGS: Brain: Normal. No hemorrhage. Unremarkable white matter. No mass effect. Ventricles: Normal. No hydrocephalus. Bones/joints: Normal. Skull base and overlying calvarium are intact. No lytic or osteosclerotic lesions. Sinuses: Visualized sinuses are unremarkable. No fluid levels. Mastoid air cells: Visualized mastoid air cells are well aerated. Soft tissues: Unremarkable. IMPRESSION: 1. Negative head CT. 2. [place] Stroke Program Early CT Score (ASPECTS) = 10. 3. No significant interval change when compared to the CT Head wo Cont 2018 9:27 PM. Thank you for allowing us to participate in the care of your patient. Head CT wo contrast: 02/15/2019 FINDINGS: Brain: There is no evidence of acute hemorrhage within the brain parenchyma or the subarachnoid space. There is no evidence of an acute ischemic event. Ventricles: There is no significant ventricular effacement or midline shift. The ventricular system demonstrates moderate diffuse compensatory enlargement. Bones/joints: The skull is normal. There is moderate leftward deviation of the nasal septum as before. Sinuses: The visualized portions of the sinuses are normal. Mastoid air cells: The mastoid sinuses are normal. Soft tissues: The extracranial soft tissues are normal. IMPRESSION: The ventricles are larger than they were on the prior study. Thank you for allowing us to participate in the care of your patient. See rad report (Ev Abarca) Head CT: 12/24/2018 FINDINGS: Brain: Normal. No hemorrhage. Unremarkable white matter. No mass effect. Ventricles: Normal. No hydrocephalus. Bones/joints: Normal. Skull base and overlying calvarium are intact. No lytic or osteosclerotic lesions. Sinuses: Visualized sinuses are unremarkable. No fluid levels. Mastoid air cells: Visualized mastoid air cells are well aerated. Soft tissues: Unremarkable. IMPRESSION: 1. Negative head CT. 2. [place] Stroke Program Early CT Score (ASPECTS) = 10. 3. No significant interval change when compared to the CT Head wo Cont 2018 9:27 PM. Thank you for allowing us to participate in the care of your patient. Head CT wo contrast: 02/15/2019 FINDINGS: Brain: There is no evidence of acute hemorrhage within the brain parenchyma or the subarachnoid space. There is no evidence of an acute ischemic event. Ventricles: There is no significant ventricular effacement or midline shift. The ventricular system demonstrates moderate diffuse compensatory enlargement. Bones/joints: The skull is normal. There is moderate leftward deviation of the nasal septum as before. Sinuses: The visualized portions of the sinuses are normal. Mastoid air cells: The mastoid sinuses are normal. Soft tissues: The extracranial soft tissues are normal. IMPRESSION: The ventricles are larger than they were on the prior study. Thank you for allowing us to participate in the care of your patient. See rad report (Iva Doshi) Departure <Iva Doshi - Last Filed: 02/25/19 14:20> - Departure Time of Disposition: 22:10 Condition: Undetermined - Discharge Information *PRESCRIPTION DRUG MONITORING PROGRAM REVIEWED*: No *COPY OF PRESCRIPTION DRUG MONITORING REPORT IN PATIENT BREANNE: No <Na Lucero - Last Filed: 02/25/19 15:31> - Departure Disposition: DC/Tfer to [facility] 02 Clinical Impression: Seizure disorder Altered mental status, unspecified Qualifiers: Altered mental status type: disorientation Qualified Code(s): R41.0 - Disorientation, unspecified - Discharge Information Referrals: PCP,Unobtain [Primary Care Provider] - Forms: ED Department Discharge Sepsis Event Note - Evaluation Sepsis Screening Result: No Definite Risk - Focused Exam Date Exam was Performed: 02/25/19 Time Exam was Performed: 14:21 <Iva Doshi - Last Filed: 02/25/19 14:20> - Focused Exam Date Exam was Performed: 02/25/19 Time Exam was Performed: 15:31 <Na Lucero - Last Filed: 02/25/19 15:31> I have read and agree with the documentation that has been completed regarding this visit. By signing this record, I attest that the documentation was completed in my physical presence and is an accurate record of the encounter.
== END 2019-02-15 22:10 ==
LOC: DL.ED 15:15
DX: G40.909 Epilepsy, unspecified, not intractable, without status epilepticus (principal); Z91.030 Bee allergy status
CPT/HCPCS: 36415; 70450; 80053; 80305; 80320; 81003; 85025; 93005; 96374; 96375; 96376; 99285; J1953; J2060; J7050; G0480

== ENCOUNTER 2019-02-25 22:54 | Emergency (ER) | payer MEDICAID ==
[2019-02-25 23:04] VITALS: BP 115/72; PULSE 43
--- NOTE | 2019-02-25 23:14 | EDM.PDOC ---
ED HPI GENERAL MEDICAL PROBLEM - General Chief Complaint: Cardiovascular Problem Stated Complaint: AMBULANCE Time Seen by Provider: 02/25/19 23:05 Source of Information: Reports: Patient History Limitations: Reports: No Limitations - History of Present Illness INITIAL COMMENTS - FREE TEXT/NARRATIVE: This 53 yo male patient was brought to the ED by [facility] due to having a seizure. The patient has a history of seizures and reports he has been taking his medications as prescribed. The patient states that he recently got out of the hospital in [place]. The patient reports he has been eating and drinking normally. The patient reports he has been having increased dizziness this evening. The patient also reports intermittent numbness and tingling in his extremities. The patient denies any drug or ETOH use. Onset: Today Location: Reports: Generalized Quality: Reports: Other Severity: Moderate Improves with: Reports: None Worsens with: Reports: None Context: Reports: Other Associated Symptoms: Reports: No Other Symptoms - Related Data Allergies Allergy/AdvReac Type Severity Reaction Status Date / Time bee venom protein (honey bee) Allergy Shortness Verified 02/25/19 22:57 of Breath Home Meds: Home Meds Acetaminophen [Tylenol Extra Strength] 500 mg PO Q6HR PRN 12/11/18 [History] Topiramate [Topamax] 50 mg PO BID #60 tablet 12/27/18 [Rx] levETIRAcetam [Keppra] 1,000 mg PO BID #60 tablet 12/27/18 [Rx] Past Medical History - Past Health History Medical/Surgical History: Denies Medical/Surgical History HEENT History: Reports: Hard of Hearing Other HEENT History: to left ear, bad eyes Cardiovascular History: Reports: None Respiratory History: Reports: None Gastrointestinal History: Reports: None Genitourinary History: Reports: None Musculoskeletal History: Reports: Other (See Below) 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 Neurological History: Reports: Brain Injury, Seizure Other Neuro History: Seizure disorder, brain hematoma from a snow shovel Psychiatric History: Reports: Addiction Other Psychiatric History: alcohol Endocrine/Metabolic History: Reports: None Hematologic History: Reports: None Immunologic History: Reports: None Oncologic (Cancer) History: Reports: None Dermatologic History: Reports: None - Infectious Disease History Infectious Disease History: Reports: Chicken Pox - Past Surgical History Head Surgeries/Procedures: Reports: None Social & Family History - Family History Family Medical History: Noncontributory Cardiac: Reports: CAD, Hypertension Oncologic: Reports: None - Caffeine Use Caffeine Use: Reports: Coffee Caffeine Use Comment: unknown - Living Situation & Occupation Living situation: Reports: Single, Alone Occupation: Unemployed ED ROS GENERAL - Review of Systems Review Of Systems: Comprehensive ROS is negative, except as noted in HPI. ED EXAM, GENERAL - Physical Exam Exam: See Below Exam Limited By: No Limitations General Appearance: Alert, WD/WN, Moderate Distress, Thin Eye Exam: Bilateral Eye: EOMI, Normal Inspection, PERRL Ears: Normal External Exam, Normal Canal, Hearing Grossly Normal, Normal TMs Nose: Normal Inspection, Normal Mucosa, No Blood Throat/Mouth: Normal Inspection, Normal Lips, Normal Teeth, Normal Gums, Normal Oropharynx, Normal Voice, No Airway Compromise Head: Atraumatic, Normocephalic Neck: Normal Inspection, Supple, Non-Tender, Full Range of Motion Respiratory/Chest: No Respiratory Distress, Lungs Clear, Normal Breath Sounds, No Accessory Muscle Use, Chest Non-Tender Cardiovascular: Normal Peripheral Pulses, Regular Rate, Rhythm, No Edema, No Gallop, No JVD, No Murmur, No Rub GI/Abdominal: Normal Bowel Sounds, Soft, Non-Tender, No Organomegaly, No Distention, No Abnormal Bruit, No Mass (Male) Exam: Deferred Rectal (Males) Exam: Deferred Back Exam: Normal Inspection, Full Range of Motion, NT Extremities: Normal Inspection, Normal Range of Motion, Non-Tender, Normal Capillary Refill, No Pedal Edema Neurological: Alert, Oriented, CN II-XII Intact, Normal Cognition, Normal Gait, Normal Reflexes, No Motor/Sensory Deficits Psychiatric: Normal Affect, Normal Mood Skin Exam: Warm, Dry, Intact, Normal Color, No Rash Lymphatic: No Adenopathy Course - Vital Signs Last Recorded V/S: Last Vital Signs Temp 36.7 C 02/25/19 23:00 Pulse 43 L 02/25/19 23:00 Resp 13 02/25/19 23:00 BP 115/72 02/25/19 23:00 Pulse Ox 100 02/25/19 23:00 Orthostatic Blood Pressure [ 131/84 Standing] Orthostatic Blood Pressure [ 124/81 Sitting] Orthostatic Blood Pressure [ 123/79 Supine] - Orders/Labs/Meds Orders: Active Orders 24 hr Category Date Time Status EKG Documentation Completion [RC] URGENT Care 02/25/19 23:03 Active Orthostatic Vital Signs [RC] ASDIRECTED Care 02/26/19 00:16 Ordered LEVETIRACETAM, S [REF] Urgent Lab 02/25/19 23:10 Received Sodium Chloride 0.9% [Normal Saline] 1,000 ml Med 02/26/19 00:08 Ordered IV .BOLUS Medication Orders Sodium Chloride (Normal Saline) 1,000 mls @ 999 mls/hr IV .BOLUS ONE Stop: 02/26/19 01:08 Last Admin: 02/26/19 00:14 Dose: 999 mls/hr Labs: Laboratory Tests 02/25/19 02/25/19 02/25/19 Range/Units 23:10 23:10 23:49 WBC 5.1 (5.0-10.0) 10^3/uL RBC 4.18 L (4.6-6.2) 10^6/uL Hgb 13.2 L (14.0-18.0) g/dL Hct 38.9 L (40.0-54.0) % MCV 93.1 (80-100) fL MCH 31.6 (27.0-34.0) pg MCHC 33.9 (33.0-35.0) g/dL Plt Count 225 (150-450) 10^3/uL Neut % (Auto) 45.5 (42.2-75.2) % Lymph % (Auto) 35.4 (20.5-50.1) % [place] % (Auto) 12.2 H (2-8) % Eos % (Auto) 6.3 H (1.0-3.0) % Baso % (Auto) 0.6 (0.0-1.0) % Sodium 138 (135-145) mmol/L Potassium 3.5 L (3.6-5.0) mmol/L Chloride 104 (101-111) mmol/L Carbon Dioxide 28.0 (21.0-31.0) mmol/L Anion Gap 9.5 BUN 11 (7-18) mg/dL Creatinine 0.7 (0.6-1.3) mg/dL Est Cr Clr Drug Dosing 119.43 mL/min Estimated GFR (MDRD) > 60 BUN/Creatinine Ratio 15.71 Glucose 80 (74-105) mg/dL Calcium 8.5 (8.4-10.2) mg/dl Total Bilirubin 0.4 (0.2-1.0) mg/dL AST 17 (10-42) IU/L ALT 19 (10-60) IU/L Alkaline Phosphatase 61 (42-121) IU/L Troponin I < 0.02 (0.00-0.02) ng/ml Total Protein 6.6 L (6.7-8.2) g/dl Albumin 4.0 (3.2-5.5) g/dl Globulin 2.6 Albumin/Globulin Ratio 1.54 Urine Color Yellow (YELLOW) Urine Appearance Clear (CLEAR) Urine pH 7.0 (5.0-9.0) Ur Specific [place] 1.015 (1.005-1.030) Urine Protein Negative (NEGATIVE) Urine Glucose (UA) Negative (NEGATIVE) Urine Ketones Negative (NEGATIVE) Urine Occult Blood Negative (NEGATIVE) Urine Nitrite Negative (NEGATIVE) Urine Bilirubin Negative (NEGATIVE) Urine Urobilinogen 0.2 (0.2-1.0) mg/dL Ur Leukocyte Esterase Negative (NEGATIVE) Urine Opiates Screen (NEGATIVE) Ur Oxycodone Screen (NEGATIVE) Urine Methadone Screen (NEGATIVE) Ur Barbiturates Screen (NEGATIVE) U Tricyclic Antidepress (NEGATIVE) Ur Phencyclidine Scrn (NEGATIVE) Ur Amphetamine Screen (NEGATIVE) U Methamphetamines Scrn (NEGATIVE) Urine MDMA Screen (NEGATIVE) U Benzodiazepines Scrn (NEGATIVE) Urine Cocaine Screen (NEGATIVE) U Marijuana (THC) Screen (NEGATIVE) Ethyl Alcohol < 5 mg/dL 02/25/19 Range/Units 23:49 WBC (5.0-10.0) 10^3/uL RBC (4.6-6.2) 10^6/uL Hgb (14.0-18.0) g/dL Hct (40.0-54.0) % MCV (80-100) fL MCH (27.0-34.0) pg MCHC (33.0-35.0) g/dL Plt Count (150-450) 10^3/uL Neut % (Auto) (42.2-75.2) % Lymph % (Auto) (20.5-50.1) % Weber % (Auto) (2-8) % Eos % (Auto) (1.0-3.0) % Baso % (Auto) (0.0-1.0) % Sodium (135-145) mmol/L Potassium (3.6-5.0) mmol/L Chloride (101-111) mmol/L Carbon Dioxide (21.0-31.0) mmol/L Anion Gap BUN (7-18) mg/dL Creatinine (0.6-1.3) mg/dL Est Cr Clr Drug Dosing mL/min Estimated GFR (MDRD) BUN/Creatinine Ratio Glucose (74-105) mg/dL Calcium (8.4-10.2) mg/dl Total Bilirubin (0.2-1.0) mg/dL AST (10-42) IU/L ALT (10-60) IU/L Alkaline Phosphatase (42-121) IU/L Troponin I (0.00-0.02) ng/ml Total Protein (6.7-8.2) g/dl Albumin (3.2-5.5) g/dl Globulin Albumin/Globulin Ratio Urine Color (YELLOW) Urine Appearance (CLEAR) Urine pH (5.0-9.0) Ur Specific [place] (1.005-1.030) Urine Protein (NEGATIVE) Urine Glucose (UA) (NEGATIVE) Urine Ketones (NEGATIVE) Urine Occult Blood (NEGATIVE) Urine Nitrite (NEGATIVE) Urine Bilirubin (NEGATIVE) Urine Urobilinogen (0.2-1.0) mg/dL Ur Leukocyte Esterase (NEGATIVE) Urine Opiates Screen Negative (NEGATIVE) Ur Oxycodone Screen Negative (NEGATIVE) Urine Methadone Screen Negative (NEGATIVE) Ur Barbiturates Screen Negative (NEGATIVE) U Tricyclic Antidepress Negative (NEGATIVE) Ur Phencyclidine Scrn Negative (NEGATIVE) Ur Amphetamine Screen Negative (NEGATIVE) U Methamphetamines Scrn Negative (NEGATIVE) Urine MDMA Screen Negative (NEGATIVE) U Benzodiazepines Scrn Negative (NEGATIVE) Urine Cocaine Screen Negative (NEGATIVE) U Marijuana (THC) Screen Negative (NEGATIVE) Ethyl Alcohol mg/dL Meds: Medications Generic Name Dose Route Start Last Admin Trade Name Freq PRN Reason Stop Dose Admin Sodium Chloride 1,000 mls @ 999 mls/hr 02/26/19 00:08 02/26/19 00:14 Normal Saline IV 02/26/19 01:08 999 mls/hr .BOLUS ONE Administration Departure - Departure Time of Disposition: 00:53 Disposition: Home, Self-Care 01 Condition: Fair Clinical Impression: Seizure Instructions: Seizure, Adult, [id number] Forms: ED Department Discharge Care Plan Goals: The patient was advised of the examination, lab and EKG results during the visit. The patient was encouraged to continue to take his medications as prescribed. The patient should follow-up with his primary care facility and with his neurologist for continued evaluation and further management. If the patient has any additional symptoms or concerns, the patient should either return to the emergency department or visit his primary care facility. Sepsis Event Note - Evaluation Sepsis Screening Result: No Definite Risk - Focused Exam Vital Signs: Vital Signs Temp Pulse Resp BP Pulse Ox 02/25/19 23:00 36.7 C 43 L 13 115/72 100 Date Exam was Performed: 02/26/19 Time Exam was Performed: 00:46 - My Orders Last 24 Hours: My Active Orders 02/25/19 23:03 EKG Documentation Completion [RC] URGENT 02/25/19 23:10 LEVETIRACETAM, S [REF] Urgent 02/26/19 00:08 Sodium Chloride 0.9% [Normal Saline] 1,000 ml IV .BOLUS 02/26/19 00:16 Orthostatic Vital Signs [RC] ASDIRECTED - Assessment/Plan Last 24 Hours: My Active Orders 02/25/19 23:03 EKG Documentation Completion [RC] URGENT 02/25/19 23:10 LEVETIRACETAM, S [REF] Urgent 02/26/19 00:08 Sodium Chloride 0.9% [Normal Saline] 1,000 ml IV .BOLUS 02/26/19 00:16 Orthostatic Vital Signs [RC] ASDIRECTED
[2019-02-25 23:38] LABS: ANION GAP 9.5; CHLORIDE,CL 104 mmol/L (101-111); SODIUM,NA 138 mmol/L (135-145)
[2019-02-26] MEDS ORDERED: Sodium Chloride 0.9% 1,000 ML IV ONE (00:08)
== END 2019-02-26 01:07 | disposition home or self-care (01) ==
LOC: DL.ED 22:54
DX: G40.909 Epilepsy, unspecified, not intractable, without status epilepticus (principal); Z91.030 Bee allergy status; Z79.899 Other long term (current) drug therapy
CPT/HCPCS: 36415; 80053; 80177; 80305; 80320; 81003; 84484; 85025; 93005; 96360; 99284; J7030; G0480

== ENCOUNTER 2019-05-03 04:38 | Emergency (ER) | payer MEDICAID ==
[2019-05-03 04:51] VITALS: BP 111/71; PULSE 57
[2019-05-03] MEDS: levETIRAcetam 1,000 MG in Sodium Chloride 0.9% 100 ML IV ONE (05:02)
[2019-05-03 05:16] LABS: ANION GAP 10.3 mEq/L (7-13); CHLORIDE,CL 105 mmol/L (98-107); SODIUM,NA 144 mmol/L (136-145)
--- NOTE | 2019-05-03 06:04 | EDM.PDOC ---
ED HPI GENERAL MEDICAL PROBLEM - General Source of Information: Reports: Patient, Family, RN History Limitations: Reports: Altered Mental Status Head Pain Score (Numeric/FACES): 6 <Shant Clark - Last Filed: 05/03/19 06:22> <Iva Doshi - Last Filed: 05/03/19 08:22> - General Chief Complaint: Neuro Symptoms/Deficits Stated Complaint: AMBULANCE Time Seen by Provider: 05/03/19 04:51 - History of Present Illness INITIAL COMMENTS - FREE TEXT/NARRATIVE: ED via [facility] with report of seizure, Patient states here because he was vomiting and has headache. Hx seizure disorder and migraines. Last seizure per family was 2 months ago. Patient currently living with sister, stated tonight he went to bed around 10 then at 3 called her on his cell phone and told her to come and find him as didn't know where he was. She noted that when they tried to open drapes for ambulance to locate house patient told her to hurry and close them or "they" would find him. Home health comes and sets up medication and sister reports he is good about taking them (Shant Clark) - Related Data Allergies Allergy/AdvReac Type Severity Reaction Status Date / Time bee venom protein (honey bee) Allergy Shortness Verified 05/03/19 04:32 of Breath Home Meds: Home Meds Ascorbic Acid [C-1000] 1,000 mg PO DAILY 05/03/19 [History] Aspirin [Halfprin] 81 mg PO DAILY 05/03/19 [History] Divalproex Sodium [Divalproex Sodium ER] 500 mg PO DAILY 05/03/19 [History] Melatonin 10 mg PO DAILY 05/03/19 [History] Multivitamin [Multivitamins] 1 each PO DAILY 05/03/19 [History] SUMAtriptan [Imitrex] 25 mg PO ASDIRECTED 05/03/19 [History] Thiamine [Vitamin B-1] 100 mg PO DAILY 05/03/19 [History] Vitamin B Complex [B Complex] 1 each PO DAILY 05/03/19 [History] atorvaSTATin [Lipitor] 40 mg PO BEDTIME 05/03/19 [History] levETIRAcetam [Keppra] 1,000 mg PO BID 05/03/19 [History] traMADol [Ultram] 50 mg PO Q4H PRN 05/03/19 [History] Past Medical History - Past Health History Medical/Surgical History: Denies Medical/Surgical History HEENT History: Reports: Hard of Hearing Other HEENT History: to left ear, bad eyes Cardiovascular History: Reports: None Respiratory History: Reports: None Gastrointestinal History: Reports: None Genitourinary History: Reports: None Musculoskeletal History: Reports: Other (See Below) 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 Neurological History: Reports: Brain Injury, Seizure Other Neuro History: Seizure disorder, brain hematoma from a snow shovel Psychiatric History: Reports: Addiction Other Psychiatric History: alcohol Endocrine/Metabolic History: Reports: None Hematologic History: Reports: None Immunologic History: Reports: None Oncologic (Cancer) History: Reports: None Dermatologic History: Reports: None - Infectious Disease History Infectious Disease History: Reports: Chicken Pox - Past Surgical History Head Surgeries/Procedures: Reports: None <Shant Clark - Last Filed: 05/03/19 06:22> Social & Family History - Family History Family Medical History: Noncontributory Cardiac: Reports: CAD, Hypertension Oncologic: Reports: None - Tobacco Use Smoking Status *Q: Unknown Ever Smoked Second Hand Smoke Exposure: Yes - Caffeine Use Caffeine Use: Reports: Coffee Caffeine Use Comment: unknown - Recreational Drug Use Recreational Drug Use: No - Living Situation & Occupation Living situation: Reports: Single, Alone Occupation: Unemployed <Shant Clark - Last Filed: 05/03/19 06:22> ED ROS GENERAL - Review of Systems Review Of Systems: Comprehensive ROS is negative, except as noted in HPI. <Iva Doshi - Last Filed: 05/03/19 08:22> - Physical Exam Exam: See Below Exam Limited By: No Limitations General Appearance: Alert, No Apparent Distress, Thin Eye Exam: Bilateral Eye: EOMI, PERRL Ears: Normal External Exam Throat/Mouth: Normal Inspection Head Exam: Atraumatic, Normocephalic Neck: Full Range of Motion Respiratory/Chest: No Respiratory Distress, Lungs Clear, Normal Breath Sounds Cardiovascular: Regular Rate, Rhythm GI/Abdominal: Normal Bowel Sounds, Soft, Non-Tender, Other (large emesis on arrival) Neuro Exam (Abbreviated): Alert, Oriented (person), Slow to Respond, Sensory/ Motor Deficit (equal bilateral crane rigger, lacks fine motor bilateral upper) Extremities: No Pedal Edema Psychiatric: Flat Affect Skin Exam: Warm, Dry, Intact, Normal Color <LionelshaggyLeticia nickShantaly Woodard - Last Filed: 05/03/19 06:22> Course <JazmineShant Woodard - Last Filed: 05/03/19 06:22> <Iva Doshi - Last Filed: 05/03/19 08:22> - Vital Signs Last Recorded V/S: Last Vital Signs Temp 97.5 F 05/03/19 04:50 Pulse 57 L 05/03/19 04:50 Resp 16 05/03/19 04:50 BP 111/71 05/03/19 04:50 Pulse Ox 98 05/03/19 04:50 - Orders/Labs/Meds Orders: Active Orders 24 hr Category Date Time Status EKG 12 Lead [EKG Documentation Completion] [RC] URGENT Care 05/03/19 05:02 Active LEVETIRACETAM, S [REF] Stat Lab 05/03/19 04:47 Received Isolation [COMM] Routine Oth 05/03/19 04:44 Active Labs: Laboratory Tests 05/03/19 05/03/19 05/03/19 Range/Units 04:47 04:47 04:47 WBC 11.2 H (5.0-10.0) 10^3/uL RBC 4.34 L (4.6-6.2) 10^6/uL Hgb 13.5 L (14.0-18.0) g/dL Hct 41.2 (40.0-54.0) % MCV 94.9 (80-100) fL MCH 31.1 (27.0-34.0) pg MCHC 32.8 L (33.0-35.0) g/dL Plt Count 204 (150-450) 10^3/uL Neut % (Auto) 61.9 (42.2-75.2) % Lymph % (Auto) 22.2 (20.5-50.1) % [place] % (Auto) 12.0 H (2-8) % Eos % (Auto) 3.7 H (1.0-3.0) % Baso % (Auto) 0.2 (0.0-1.0) % Sodium 144 (136-145) mmol/L Potassium 4.3 (3.5-5.1) mmol/L Chloride 105 (98-107) mmol/L Carbon Dioxide 33 H (21-32) mmol/L Anion Gap 10.3 (7-13) mEq/L BUN 15 (7-18) mg/dL Creatinine 0.74 (0.70-1.30) mg/dL Est Cr Clr Drug Dosing 105.18 mL/min Estimated GFR (MDRD) > 60 BUN/Creatinine Ratio 20.3 (No establ ref range) Glucose 117 H (74-99) mg/dL Calcium 8.1 L (8.5-10.1) mg/dL Total Bilirubin 0.2 (0.2-1.0) mg/dL AST 14 L (15-37) U/L ALT 23 (16-63) U/L Alkaline Phosphatase 90 (46-116) U/L Ammonia 14 (11-32) umol/L Total Protein 6.6 (6.4-8.2) g/dL Albumin 3.6 (3.4-5.0) g/dL Globulin 3.0 Albumin/Globulin Ratio 1.2 Amylase 40 (25-115) U/L Lipase 83 (73-393) U/L Urine Color (YELLOW) Urine Appearance (CLEAR) Urine pH (5.0-9.0) Ur Specific [place] (1.005-1.030) Urine Protein (NEGATIVE) Urine Glucose (UA) (NEGATIVE) Urine Ketones (NEGATIVE) Urine Occult Blood (NEGATIVE) Urine Nitrite (NEGATIVE) Urine Bilirubin (NEGATIVE) Urine Urobilinogen (0.2-1.0) mg/dL Ur Leukocyte Esterase (NEGATIVE) Urine Opiates Screen (NEGATIVE) Ur Oxycodone Screen (NEGATIVE) Urine Methadone Screen (NEGATIVE) Ur Barbiturates Screen (NEGATIVE) U Tricyclic Antidepress (NEGATIVE) Ur Phencyclidine Scrn (NEGATIVE) Ur Amphetamine Screen (NEGATIVE) U Methamphetamines Scrn (NEGATIVE) Urine MDMA Screen (NEGATIVE) U Benzodiazepines Scrn (NEGATIVE) Urine Cocaine Screen (NEGATIVE) U Marijuana (THC) Screen (NEGATIVE) Ethyl Alcohol < 3 (0) mg/dL 05/03/19 05/03/19 Range/Units 05:42 05:42 WBC (5.0-10.0) 10^3/uL RBC (4.6-6.2) 10^6/uL Hgb (14.0-18.0) g/dL Hct (40.0-54.0) % MCV (80-100) fL MCH (27.0-34.0) pg MCHC (33.0-35.0) g/dL Plt Count (150-450) 10^3/uL Neut % (Auto) (42.2-75.2) % Lymph % (Auto) (20.5-50.1) % [place] % (Auto) (2-8) % Eos % (Auto) (1.0-3.0) % Baso % (Auto) (0.0-1.0) % Sodium (136-145) mmol/L Potassium (3.5-5.1) mmol/L Chloride (98-107) mmol/L Carbon Dioxide (21-32) mmol/L Anion Gap (7-13) mEq/L BUN (7-18) mg/dL Creatinine (0.70-1.30) mg/dL Est Cr Clr Drug Dosing mL/min Estimated GFR (MDRD) BUN/Creatinine Ratio (No establ ref range) Glucose (74-99) mg/dL Calcium (8.5-10.1) mg/dL Total Bilirubin (0.2-1.0) mg/dL AST (15-37) U/L ALT (16-63) U/L Alkaline Phosphatase (46-116) U/L Ammonia (11-32) umol/L Total Protein (6.4-8.2) g/dL Albumin (3.4-5.0) g/dL Globulin Albumin/Globulin Ratio Amylase (25-115) U/L Lipase (73-393) U/L Urine Color Yellow (YELLOW) Urine Appearance Clear (CLEAR) Urine pH 7.0 (5.0-9.0) Ur Specific [place] 1.025 (1.005-1.030) Urine Protein Negative (NEGATIVE) Urine Glucose (UA) Negative (NEGATIVE) Urine Ketones Negative (NEGATIVE) Urine Occult Blood Negative (NEGATIVE) Urine Nitrite Negative (NEGATIVE) Urine Bilirubin Negative (NEGATIVE) Urine Urobilinogen 1.0 (0.2-1.0) mg/dL Ur Leukocyte Esterase Negative (NEGATIVE) Urine Opiates Screen Negative (NEGATIVE) Ur Oxycodone Screen Negative (NEGATIVE) Urine Methadone Screen Negative (NEGATIVE) Ur Barbiturates Screen Negative (NEGATIVE) U Tricyclic Antidepress Negative (NEGATIVE) Ur Phencyclidine Scrn Negative (NEGATIVE) Ur Amphetamine Screen Negative (NEGATIVE) U Methamphetamines Scrn Negative (NEGATIVE) Urine MDMA Screen Negative (NEGATIVE) U Benzodiazepines Scrn Negative (NEGATIVE) Urine Cocaine Screen Negative (NEGATIVE) U Marijuana (THC) Screen Negative (NEGATIVE) Ethyl Alcohol (0) mg/dL Meds: Medications Discontinued Medications Generic Name Dose Route Start Last Admin Trade Name Freq PRN Reason Stop Dose Admin Acetaminophen 650 mg 05/03/19 07:30 05/03/19 07:57 Tylenol PO 05/03/19 07:31 650 mg NOW ONE Administration Levetiracetam 1,000 mg/ Sodium 110 mls @ 400 mls/hr 05/03/19 04:53 05/03/19 05:02 Chloride IV 05/03/19 05:07 400 mls/hr ONETIME ONE Administration Morphine Sulfate 2 mg 05/03/19 06:00 05/03/19 06:17 Morphine IVPUSH 05/03/19 06:01 2 mg ONETIME ONE Administration Ondansetron HCl 4 mg 05/03/19 06:00 05/03/19 06:15 Zofran IVPUSH 05/03/19 06:01 4 mg ONETIME ONE Administration - Radiology Interpretation Free Text/Narrative:: [facility] Final Radiology Report Call: [phone] assistance Online chat: [email or web address] Name: AIDEN ZHU Age: 53Years M Date: 05/03/2019 SSN: -- : [id number] Study: CT HEAD WO Requesting Physician: SHANT CLARK Images: [id number] Addl Studies: Provided Clinical History: Contrast: Without Contrast Medium: Contrast Amount: Contrast Method: Page 1 of 2 PROCEDURE INFORMATION: Exam: CT Head Without Contrast Exam date and time: 05/03/2019 5:09 AM Age: 53 years old Clinical indication: Other: Altered mental status, weak grasp TECHNIQUE: Imaging protocol: Computed tomography of the head without contrast. Radiation optimization: All CT scans at this facility use at least one of these dose optimization techniques: automated exposure control; mA and/or kV adjustment per patient size (includes targeted exams where dose is matched to clinical indication); or iterative reconstruction. COMPARISON: CT Head wo Cont 02/15/2019 4:42 PM FINDINGS: Brain: No intracranial bleed. No cerebral extra-axial fluid collection. Mild cerebral atrophy. Mild white matter hypoattenuation, most commonly secondary to chronic microvascular disease. No cerebral edema. Ventricles: Stable mild to moderate ventricular enlargement without obstruction changes. Consider central atrophy Bones/joints: The visualized bones are intact without fracture or focal lesion. Sinuses: The sinuses are well aerated and clear. Mastoid air cells: The mastoids are well aerated and clear. Soft tissues: The visualized soft tissues appear unremarkable. IMPRESSION: 1. Negative study without acute interval intracranial changes evident. 2. Stable mild to moderate ventricular enlargement without obstructive change evident. AIDEN ZHU | Final Radiology Report CONFIDENTIALITY STATEMENT This report is intended only for use by the referring physician, and only in accordance with law. If you received this in error, call [phone]. Page 2 of 2 Thank you for allowing us to participate in the care of your patient. Dictated and Authenticated by: Paula Cavazos MD 05/03/2019 5:29 AM Central Time ([place] & [place] (Shant Clark) - Re-Assessments/Exams Free Text/Narrative Re-Assessment/Exam: 05/03/19 07:52 Pt is verbalizing and continues to be somewhat post-ictal. Patient and daughter state they feel comfortable going home. (Iva Doshi) Departure <Shant Clark - Last Filed: 05/03/19 06:22> - Departure Time of Disposition: 07:54 Condition: Fair - Discharge Information *PRESCRIPTION DRUG MONITORING PROGRAM REVIEWED*: No *COPY OF PRESCRIPTION DRUG MONITORING REPORT IN PATIENT BREANNE: No <Iva Doshi - Last Filed: 05/03/19 08:22> - Departure Disposition: Home, Self-Care 01 Clinical Impression: Seizure disorder, Seizure - Discharge Information Instructions: Seizure, Adult, [id number] Referrals: Tj Tidwell [Primary Care Provider] - Forms: ED Department Discharge Additional Instructions: Take home medications as prescribed. Follow up with your primary care facility. Follow up with Neurology. Return to the ER with any worsening of problems. Sepsis Event Note - Evaluation Sepsis Screening Result: No Definite Risk - Focused Exam Date Exam was Performed: 05/03/19 Time Exam was Performed: 06:22 <Shant Clark - Last Filed: 05/03/19 06:22> - Focused Exam Date Exam was Performed: 05/03/19 Time Exam was Performed: 08:22 <Iva Doshi - Last Filed: 05/03/19 08:22> - Focused Exam Vital Signs: Vital Signs Temp Pulse Resp BP Pulse Ox 05/03/19 04:50 97.5 F 57 L 16 111/71 98
[2019-05-03] MEDS: Ondansetron 4 MG/2 ML SDV IVPUSH ONE (06:15)
[2019-05-03] MEDS: Acetaminophen 325 MG Tab PO ONE (07:57)
== END 2019-05-03 08:10 | disposition home or self-care (01) ==
LOC: DL.ED 04:38
DX: G40.909 Epilepsy, unspecified, not intractable, without status epilepticus (principal); M19.90 Unspecified osteoarthritis, unspecified site; Z77.22 Contact with and (suspected) exposure to environmental tobacco smoke (acute) (chronic); Z91.030 Bee allergy status; Z79.82 Long term (current) use of aspirin; Z79.899 Other long term (current) drug therapy
CPT/HCPCS: 36415; 70450; 80053; 80177; 80305; 80307; 81003; 82140; 82150; 83690; 85025; 87804; 93005; 96365; 96375; 99285; A9270; J1953; J2270; J2405; J7050

== ENCOUNTER 2019-05-24 14:09 | Emergency (ER) | payer MEDICAID ==
[2019-05-24 14:23] VITALS: BP 109/69; PULSE 64
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
[2019-05-24] MEDS ORDERED: Sodium Chloride 0.9% 10 ML Syringe FLUSH PRN (14:31)
[2019-05-24 15:14] LABS: ANION GAP 13.5 mEq/L (7-13); CHLORIDE,CL 100 mmol/L (98-107); SODIUM,NA 139 mmol/L (136-145)
--- NOTE | 2019-05-24 15:41 | CR ---
EXAMINATION: Chest 1V Frontal SEX: Male AGE: 54 years CLINICAL HISTORY: 54-year-old male with variable oxygen sats (92 in the ER), possible seizure and EtOH abuse. INTERPRETATION: 1. Old trauma and some callus costochondral junctures of the right. 2. Old granuloma periphery of the left upper lobe unchanged since 24 December 2018. 3. Normal cardiac silhouette without pulmonary vascular congestion, alveolar edema or dependent pleural effusion. 4. No new lung mass, hilar lymphadenopathy or focal lobar pneumonia. 5. No atelectasis/collapse. No pneumothorax or pneumomediastinum. CONCLUSION: No acute new cardiopulmonary abnormality since comparison film 24 December 2018.
== END 2019-05-24 16:03 | disposition home or self-care (01) ==
LOC: DL.ED 14:09
DX: G40.909 Epilepsy, unspecified, not intractable, without status epilepticus (principal); F10.10 Alcohol abuse, uncomplicated; Y90.0 Blood alcohol level of less than 20 mg/100 ml; M19.90 Unspecified osteoarthritis, unspecified site; Z87.891 Personal history of nicotine dependence; Z91.030 Bee allergy status; Z79.82 Long term (current) use of aspirin; Z79.899 Other long term (current) drug therapy
CPT/HCPCS: 36415; 71045; 80053; 80164; 80177; 80307; 84484; 85025; 93005; 99284-25

== ENCOUNTER 2019-06-13 19:58 | Emergency (ER) | payer MEDICAID ==
[2019-06-13 20:13] VITALS: BP 126/73; PULSE 69
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
[2019-06-13 20:49] LABS: CHLORIDE,CL 99 mmol/L (98-107); SODIUM,NA 136 mmol/L (136-145)
[2019-06-13] MEDS ORDERED: levETIRAcetam 500 MG Tab PO ONE (21:15)
== END 2019-06-13 21:32 | disposition home or self-care (01) ==
LOC: DL.ED 19:58
DX: R56.9 Unspecified convulsions (principal); M19.90 Unspecified osteoarthritis, unspecified site; Z91.030 Bee allergy status; Z79.82 Long term (current) use of aspirin; Z79.899 Other long term (current) drug therapy
CPT/HCPCS: 36415; 70450; 71045; 80053; 80305; 80307; 81001; 84484; 85025; 99285; A9270

== ENCOUNTER 2019-06-29 01:13 | Emergency (ER) | payer MEDICAID ==
[~2019-06-29 01:13] MED LIST changes: -Diazepam 5 MG/ML 10 ML Vial MDV IM ONE; -Diazepam 5 MG/ML 10 ML Vial MDV IVPUSH ONE; -Diazepam 5 MG/ML 10 ML Vial MDV ONE; +MVI, Adult with Vitamin K 10 ML, Folic Acid 1 MG, Thiamine 100 MG in Lactated Ringers 1... IV ONE; -MVI, Adult with Vitamin K 10 ML, Thiamine 100 MG, Folic Acid 1 MG in Lactated Ringers 1... IV ONE; -Sodium Chloride 0.9% 10 ML Syringe FLUSH PRN; +levETIRAcetam 500 MG in Sodium Chloride 0.9% 100 ML IV ONE
[2019-06-29 01:26] VITALS: BP 119/73; PULSE 71
[2019-06-29] MEDS ORDERED: LORazepam 2 MG/ML SDV IVPUSH PRN (01:32)
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
[2019-06-29 01:54] LABS: ANION GAP 10.5 mEq/L (7-13); CHLORIDE,CL 96 mmol/L (98-107); SODIUM,NA 135 mmol/L (136-145)
== END 2019-06-29 03:05 | disposition home or self-care (01) ==
LOC: DL.ED 01:13
DX: G40.909 Epilepsy, unspecified, not intractable, without status epilepticus (principal); F10.10 Alcohol abuse, uncomplicated; M19.90 Unspecified osteoarthritis, unspecified site; F17.210 Nicotine dependence, cigarettes, uncomplicated; Z91.030 Bee allergy status; Z79.82 Long term (current) use of aspirin; Z79.899 Other long term (current) drug therapy
CPT/HCPCS: 36415; 70450; 80053; 80305; 80307; 85025; 96365; 96367; 99284; J1953; J3411; J7050; J7120; J3490

== ENCOUNTER 2019-08-19 01:03 | Emergency (ER) | payer MEDICAID ==
[2019-08-19 01:07] VITALS: BP 131/62; PULSE 69
[2019-08-19] MEDS ORDERED: Sodium Chloride 0.9% 10 ML Syringe FLUSH PRN (01:10)
[2019-08-19 01:38] LABS: ANION GAP 8.8 mEq/L (7-13); CHLORIDE,CL 98 mmol/L (98-107); SODIUM,NA 135 mmol/L (136-145)
[2019-08-19] MEDS ORDERED: levETIRAcetam 1,000 MG in Sodium Chloride 0.9% 100 ML IV ONE (01:49)
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
--- NOTE | 2019-08-19 02:07 | CT ---
PROCEDURE INFORMATION: Exam: CT Head Without Contrast Exam date and time: 08/19/2019 1:47 AM Age: 54 years old Clinical indication: Other: Seizure; Additional info: Seizure activity, known seizure d/o, TECHNIQUE: Imaging protocol: Computed tomography of the head without contrast. Radiation optimization: All CT scans at this facility use at least one of these dose optimization techniques: automated exposure control; mA and/or kV adjustment per patient size (includes targeted exams where dose is matched to clinical indication); or iterative reconstruction. COMPARISON: CT Head wo Cont 06/29/2019 2:04 AM FINDINGS: Brain: Normal. No hemorrhage. Unremarkable white matter. No mass effect. Ventricles: Normal. No ventriculomegaly. Bones/joints: Unremarkable. No acute fracture. Sinuses: Visualized sinuses are unremarkable. No fluid levels. Mastoid air cells: Visualized mastoid air cells are well aerated. Soft tissues: Unremarkable. IMPRESSION: 1. No acute intracranial abnormality. 2. No intracranial hemorrhage. 3. No large territory acute CVA. 4. Mild atrophy. 5. Stable exam since 06/29/2019.
[2019-08-19] MEDS ORDERED: Ondansetron 4 MG/2 ML SDV IV ONE (03:09)
[2019-08-19] MEDS ORDERED: Metoclopramide 10 MG/2 ML SDV IVPUSH ONE (03:39)
== END 2019-08-19 03:55 ==
LOC: DL.ED 01:03
DX: G40.909 Epilepsy, unspecified, not intractable, without status epilepticus (principal); R47.01 Aphasia; M19.90 Unspecified osteoarthritis, unspecified site; Z91.14 Patient's other noncompliance with medication regimen; Z91.030 Bee allergy status; Z79.82 Long term (current) use of aspirin; Z79.899 Other long term (current) drug therapy
CPT/HCPCS: 36415; 70450; 80053; 80177; 80305; 80307; 81003; 85025; 96365; 96375; 99285; J1953; J2405; J2765; J7050; 99284

== ENCOUNTER 2019-09-04 17:57 | Emergency (ER) | payer MEDICAID, OTHER ==
[2019-09-04 18:09] VITALS: BP 103/52; PULSE 55
[2019-09-04 18:56] LABS: CHLORIDE,CL 104 mmol/L (98-107); SODIUM,NA 141 mmol/L (136-145)
--- NOTE | 2019-09-04 19:05 | EDM.PDOC ---
Scribed by Ev Abarca 09/04/191903 for Georgie Mcfadden, SHAKE TABLE OPERATOR ED HPI GENERAL MEDICAL PROBLEM <Calvin Lindquist - Last Filed: 09/04/19 19:54> - General Source of Information: Reports: Patient, EMS, EMS Notes Reviewed, RN, RN Notes Reviewed History Limitations: Reports: No Limitations - History of Present Illness Onset: Today <Georgie Mcfadden - Last Filed: 09/05/19 15:45> - General Chief Complaint: Neurological Problem Stated Complaint: AMBULANCE Time Seen by Provider: 09/04/19 18:06 - History of Present Illness INITIAL COMMENTS - FREE TEXT/NARRATIVE: Patient presents to ER via [facility] with a known seizure disorder. Family called EMS for seizure activity and having issues with his speech. He has no headache or abdominal pain. HE denies alcohol intake. He is alert and shows not signs of weakness or asymmetry. Has mild expressive aphasia at times. Able to quickly state age, birthday. He is well known to have seizures with following postictal state of expressive aphasia each time he has a siezure and improves after approx 4 hours. He last had his keppra this am. (Georgie Mcfadden) - Related Data Allergies Allergy/AdvReac Type Severity Reaction Status Date / Time bee venom protein (honey bee) Allergy Shortness Verified 08/19/19 01:07 of Breath Home Meds: Home Meds Ascorbic Acid [C-1000] 1,000 mg PO DAILY 05/03/19 [History] Aspirin [Halfprin] 81 mg PO DAILY 05/03/19 [History] Divalproex Sodium [Divalproex Sodium ER] 500 mg PO DAILY 05/03/19 [History] Melatonin 10 mg PO DAILY 05/03/19 [History] Multivitamin [Multivitamins] 1 each PO DAILY 05/03/19 [History] SUMAtriptan [Imitrex] 25 mg PO ASDIRECTED 05/03/19 [History] Thiamine [Vitamin B-1] 100 mg PO DAILY 05/03/19 [History] Vitamin B Complex [B Complex] 1 each PO DAILY 05/03/19 [History] atorvaSTATin [Lipitor] 40 mg PO BEDTIME 05/03/19 [History] levETIRAcetam [Keppra] 1,000 mg PO BID 05/03/19 [History] traMADol [Ultram] 50 mg PO Q4H PRN 05/03/19 [History] Past Medical History - Past Health History Medical/Surgical History: Denies Medical/Surgical History HEENT History: Reports: Hard of Hearing Other HEENT History: to left ear, bad eyes Cardiovascular History: Reports: None Respiratory History: Reports: None Gastrointestinal History: Reports: None Genitourinary History: Reports: None Musculoskeletal History: Reports: Arthritis 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 Neurological History: Reports: Brain Injury, Head Trauma, Seizure Other Neuro History: Seizure disorder, brain hematoma from a snow shovel Psychiatric History: Reports: Addiction Other Psychiatric History: alcohol Endocrine/Metabolic History: Reports: None Hematologic History: Reports: None Immunologic History: Reports: None Oncologic (Cancer) History: Reports: None Dermatologic History: Reports: None - Infectious Disease History Infectious Disease History: Reports: Chicken Pox - Past Surgical History Head Surgeries/Procedures: Reports: None <Georgie Mcfadden - Last Filed: 09/05/19 15:45> Social & Family History - Family History Family Medical History: Noncontributory Cardiac: Reports: CAD, Hypertension Oncologic: Reports: None - Caffeine Use Caffeine Use: Reports: None Caffeine Use Comment: unknown - Living Situation & Occupation Living situation: Reports: Single, with Family Occupation: Unemployed <Georgie Mcfadden - Last Filed: 09/05/19 15:45> ED ROS GENERAL - Review of Systems Review Of Systems: Comprehensive ROS is negative, except as noted in HPI. <Georgie Mcfadden - Last Filed: 09/05/19 15:45> - Physical Exam Exam: See Below Exam Limited By: Other (Mild expressive aphasia; post dictal.) Eye Exam: Bilateral Eye: PERRL Ears: Hearing Grossly Normal Nose: Normal Inspection Throat/Mouth: Normal Inspection Head Exam: Atraumatic, Normocephalic Neck: Normal Inspection, Non-Tender Respiratory/Chest: No Respiratory Distress, Lungs Clear Cardiovascular: Normal Peripheral Pulses, Regular Rate, Rhythm, No Edema, No Gallop, No JVD, No Murmur, No Rub GI/Abdominal: Normal Bowel Sounds, Soft, Non-Tender, No Organomegaly, No Distention, No Abnormal Bruit, No Mass Neuro Exam (Abbreviated): Alert, Oriented, CN II-XII Intact, No Motor/Sensory Deficits, Other (No drift. Face symmetric. Upper and lower 5/5. Mild expressive aphasia. No slurr. NIH scale 1. ) Back Exam: Normal Inspection, Full Range of Motion Extremities: Normal Inspection, Normal Range of Motion Psychiatric: Normal Affect, Normal Mood Skin Exam: Warm, Dry, Intact <Georgie Mcfadden - Last Filed: 09/05/19 15:45> Course <LexaCalvin - Last Filed: 09/04/19 19:54> <Georgie Mcfadden - Last Filed: 09/05/19 15:45> - Vital Signs Text/Narrative:: He is alert and shows not signs of weakness or asymmetry. Has mild expressive aphasia at times. Able to quickly state age, birthday. He is well known to have seizures with following postictal state of expressive aphasia each time he has a seizure and improves after approx 4 hours. He last had his keppra this am. (Georgie Mcfadden) Last Recorded V/S: Last Vital Signs Temp 97.8 F 09/04/19 18:07 Pulse 55 L 09/04/19 18:07 Resp 18 09/04/19 18:07 BP 103/52 L 09/04/19 18:07 Pulse Ox 97 09/04/19 18:07 - Orders/Labs/Meds Labs: Laboratory Tests 09/04/19 09/04/19 09/04/19 Range/Units 18:25 18:25 18:25 WBC 8.7 (5.0-10.0) 10^3/uL RBC 3.90 L (4.6-6.2) 10^6/uL Hgb 12.2 L (14.0-18.0) g/dL Hct 38.1 L (40.0-54.0) % MCV 97.7 (80-100) fL MCH 31.3 (27.0-34.0) pg MCHC 32.0 L (33.0-35.0) g/dL Plt Count 395 D (150-450) 10^3/uL Sodium 141 (136-145) mmol/L Potassium 4.0 (3.5-5.1) mmol/L Chloride 104 (98-107) mmol/L Carbon Dioxide 30 (21-32) mmol/L Anion Gap 11.0 (7-13) mEq/L BUN 9 (7-18) mg/dL Creatinine 0.77 (0.70-1.30) mg/dL Est Cr Clr Drug Dosing TNP Estimated GFR (MDRD) > 60 BUN/Creatinine Ratio 11.7 (No establ ref range) Glucose 97 (74-99) mg/dL Calcium 8.0 L (8.5-10.1) mg/dL Total Bilirubin 0.4 (0.2-1.0) mg/dL AST 11 L (15-37) U/L ALT 28 (16-63) U/L Alkaline Phosphatase 98 (46-116) U/L Total Protein 7.2 (6.4-8.2) g/dL Albumin 3.3 L (3.4-5.0) g/dL Globulin 3.9 Albumin/Globulin Ratio 0.85 Urine Opiates Screen Negative (NEGATIVE) Ur Oxycodone Screen Negative (NEGATIVE) Urine Methadone Screen Negative (NEGATIVE) Ur Barbiturates Screen Negative (NEGATIVE) U Tricyclic Antidepress Negative (NEGATIVE) Ur Phencyclidine Scrn Negative (NEGATIVE) Ur Amphetamine Screen Negative (NEGATIVE) U Methamphetamines Scrn Negative (NEGATIVE) Urine MDMA Screen Negative (NEGATIVE) U Benzodiazepines Scrn Negative (NEGATIVE) Urine Cocaine Screen Negative (NEGATIVE) U Marijuana (THC) Screen Negative (NEGATIVE) - Re-Assessments/Exams Free Text/Narrative Re-Assessment/Exam: 09/04/19 19:54 re-exam; results discussed wit pt who is txting and states feels fine and ready to go home. (Calvin Lindquist) Departure - Departure Time of Disposition: 19:54 Condition: Good <Calvin Lindquist - Last Filed: 09/04/19 19:54> <Georgie Mcfadden - Last Filed: 09/05/19 15:45> - Departure Disposition: Home, Self-Care 01 Clinical Impression: Seizures, post-traumatic - Discharge Information Instructions: Epilepsy, [id number] Referrals: PCP,None [Primary Care Provider] - Forms: ED Department Discharge Additional Instructions: 1) continue regular meds 2) follow up at clinic 3) recheck as needed I have read and agree with the documentation that has been completed regarding this visit. By signing this record, I attest that the documentation was completed in my physical presence and is an accurate record of the encounter.
== END 2019-09-04 20:00 | disposition home or self-care (01) ==
LOC: DL.ED 17:57
DX: R56.1 Post traumatic seizures (principal); M19.90 Unspecified osteoarthritis, unspecified site; Z79.82 Long term (current) use of aspirin; Z91.030 Bee allergy status; Z79.899 Other long term (current) drug therapy
CPT/HCPCS: 36415; 80053; 80305-QW; 85027; 99283; 99284

== ENCOUNTER 2019-11-01 19:12 | Emergency (ER) | payer MEDICAID, OTHER ==
[2019-11-01 19:18] VITALS: BP 106/70; PULSE 81
--- NOTE | 2019-11-01 19:27 | EDM.PDOC ---
ED HPI GENERAL MEDICAL PROBLEM - General Chief Complaint: General Stated Complaint: AMBULANCE Time Seen by Provider: 11/01/19 19:15 Source of Information: Reports: Patient, EMS, RN History Limitations: Reports: No Limitations - History of Present Illness INITIAL COMMENTS - FREE TEXT/NARRATIVE: ED via [facility], possible seizure at home, fell and cut right upper ear. Denies headache, Has not been post ictal per EMS. Alert oriented. states taking his seizure medications as prescribed. Trying to cut down on ETOH. No other c/o or injury - Related Data Allergies Allergy/AdvReac Type Severity Reaction Status Date / Time bee venom protein (honey bee) Allergy Shortness Verified 11/01/19 19:13 of Breath Home Meds: Home Meds Ascorbic Acid [C-1000] 1,000 mg PO DAILY 05/03/19 [History] Aspirin [Halfprin] 81 mg PO DAILY 05/03/19 [History] Divalproex Sodium [Divalproex Sodium ER] 500 mg PO DAILY 05/03/19 [History] Melatonin 10 mg PO DAILY 05/03/19 [History] Multivitamin [Multivitamins] 1 each PO DAILY 05/03/19 [History] SUMAtriptan [Imitrex] 25 mg PO ASDIRECTED 05/03/19 [History] Thiamine [Vitamin B-1] 100 mg PO DAILY 05/03/19 [History] Vitamin B Complex [B Complex] 1 each PO DAILY 05/03/19 [History] atorvaSTATin [Lipitor] 40 mg PO BEDTIME 05/03/19 [History] levETIRAcetam [Keppra] 1,000 mg PO BID 05/03/19 [History] traMADol [Ultram] 50 mg PO Q4H PRN 05/03/19 [History] Past Medical History - Past Health History Medical/Surgical History: Denies Medical/Surgical History HEENT History: Reports: Hard of Hearing Other HEENT History: to left ear, bad eyes Cardiovascular History: Reports: None Respiratory History: Reports: None Gastrointestinal History: Reports: None Genitourinary History: Reports: None Musculoskeletal History: Reports: Arthritis 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 Neurological History: Reports: Brain Injury, Head Trauma, Seizure Other Neuro History: Seizure disorder, brain hematoma from a snow shovel Psychiatric History: Reports: Addiction Other Psychiatric History: alcohol Endocrine/Metabolic History: Reports: None Hematologic History: Reports: None Immunologic History: Reports: None Oncologic (Cancer) History: Reports: None Dermatologic History: Reports: None - Infectious Disease History Infectious Disease History: Reports: Chicken Pox - Past Surgical History Head Surgeries/Procedures: Reports: None Social & Family History - Family History Family Medical History: Noncontributory Cardiac: Reports: CAD, Hypertension Oncologic: Reports: None - Tobacco Use Smoking Status *Q: Heavy Tobacco Smoker Years of Tobacco use: 15 Packs/Tins Daily: 3 - Caffeine Use Caffeine Use: Reports: None Caffeine Use Comment: unknown - Recreational Drug Use Recreational Drug Use: No - Living Situation & Occupation Living situation: Reports: Single, with Family Occupation: Unemployed ED ROS GENERAL - Review of Systems Review Of Systems: Comprehensive ROS is negative, except as noted in HPI. ED EXAM, GENERAL - Physical Exam Exam: See Below Exam Limited By: No Limitations General Appearance: Alert, No Apparent Distress Eye Exam: Bilateral Eye: EOMI Ears: No: Normal External Exam Ear Exam: Left Ear: Auricle Normal (2mm superficial laceraton upper pinna), Bilateral Ear: TM normal Nose: Normal Inspection Throat/Mouth: Normal Inspection, Normal Voice Head: Atraumatic, Normocephalic Neck: Normal Inspection Respiratory/Chest: No Respiratory Distress Cardiovascular: Normal Peripheral Pulses GI/Abdominal: Normal Bowel Sounds, Soft Neurological: Alert, Oriented, Normal Cognition, Sensory/Motor Deficit (baseline defecit right side from previous stroke no change) Psychiatric: Normal Affect Skin Exam: Warm, Wound/Incision (2mm laceration right upper ear) Course - Vital Signs Last Recorded V/S: Last Vital Signs Temp 99 F 11/01/19 19:13 Pulse 81 11/01/19 19:13 Resp 16 11/01/19 19:13 BP 106/70 11/01/19 19:13 Pulse Ox 98 11/01/19 19:13 - Orders/Labs/Meds Orders: Active Orders 24 hr Category Date Time Status LEVETIRACETAM, S [REF] Stat Lab 11/01/19 19:45 Received Labs: Laboratory Tests 11/01/19 11/01/19 Range/Units 19:28 19:28 WBC 10.1 H (5.0-10.0) 10^3/uL RBC 4.45 L (4.6-6.2) 10^6/uL Hgb 14.0 D (14.0-18.0) g/dL Hct 42.3 (40.0-54.0) % MCV 95.1 (80-100) fL MCH 31.5 (27.0-34.0) pg MCHC 33.1 (33.0-35.0) g/dL Plt Count 155 D (150-450) 10^3/uL Neut % (Auto) 73.3 (42.2-75.2) % Lymph % (Auto) 15.9 L (20.5-50.1) % [place] % (Auto) 10.2 H (2-8) % Eos % (Auto) 0.4 L (1.0-3.0) % Baso % (Auto) 0.2 (0.0-1.0) % Sodium 145 (136-145) mmol/L Potassium 3.8 (3.5-5.1) mmol/L Chloride 108 H (98-107) mmol/L Carbon Dioxide 27 (21-32) mmol/L Anion Gap 13.8 H (7-13) mEq/L BUN 11 (7-18) mg/dL Creatinine 0.95 (0.70-1.30) mg/dL Est Cr Clr Drug Dosing 79.68 mL/min Estimated GFR (MDRD) > 60 BUN/Creatinine Ratio 11.6 (No establ ref range) Glucose 99 (74-99) mg/dL Calcium 8.7 (8.5-10.1) mg/dL Total Bilirubin 0.5 (0.2-1.0) mg/dL AST 23 (15-37) U/L ALT 26 (16-63) U/L Alkaline Phosphatase 63 (46-116) U/L Total Protein 7.3 (6.4-8.2) g/dL Albumin 3.6 (3.4-5.0) g/dL Globulin 3.7 Albumin/Globulin Ratio 1.0 Ethyl Alcohol < 3 (0) mg/dL Departure - Departure Time of Disposition: 20:27 Disposition: Home, Self-Care 01 Condition: Good Clinical Impression: Seizure disorder Laceration of right ear without complication Qualifiers: Encounter type: initial encounter Qualified Code(s): S01.311A - Laceration without foreign body of right ear, initial encounter - Discharge Information *PRESCRIPTION DRUG MONITORING PROGRAM REVIEWED*: No *COPY OF PRESCRIPTION DRUG MONITORING REPORT IN PATIENT BREANNE: No Instructions: Epilepsy, [id number], Laceration Care, Adult, [id number] Forms: ED Department Discharge Additional Instructions: continue home medications do not miss any doses of seizure mediations follow up as needed gently wash right ear area twice daily with soap and water Sepsis Event Note (ED) - Evaluation Sepsis Screening Result: No Definite Risk - Focused Exam Vital Signs: Vital Signs Temp Pulse Resp BP Pulse Ox 11/01/19 19:13 99 F 81 16 106/70 98 - My Orders Last 24 Hours: My Active Orders 11/01/19 19:45 LEVETIRACETAM, S [REF] Stat - Assessment/Plan Last 24 Hours: My Active Orders 11/01/19 19:45 LEVETIRACETAM, S [REF] Stat
[2019-11-01 19:59] LABS: ANION GAP 13.8 mEq/L (7-13); CHLORIDE,CL 108 mmol/L (98-107); SODIUM,NA 145 mmol/L (136-145)
== END 2019-11-01 20:33 | disposition home or self-care (01) ==
LOC: DL.ED 19:12
DX: S01.311A Laceration without foreign body of right ear, initial encounter (principal); G40.909 Epilepsy, unspecified, not intractable, without status epilepticus; F17.290 Nicotine dependence, other tobacco product, uncomplicated; M19.90 Unspecified osteoarthritis, unspecified site; Z91.030 Bee allergy status; Z79.82 Long term (current) use of aspirin; Z79.899 Other long term (current) drug therapy
CPT/HCPCS: 36415; 80053; 80177; 80307; 85025; 99284

== ENCOUNTER 2020-02-20 10:37 | Emergency (ER) | payer MEDICAID, OTHER ==
[2020-02-20] MEDS ORDERED: levETIRAcetam in NaCl (iso-os) 1,500 MG in Premix Bag 1 BAG IV ONE ×2 (10:40)
[2020-02-20] MEDS ORDERED: Sodium Chloride 0.9% 10 ML Syringe FLUSH PRN (10:40)
[2020-02-20] MEDS ORDERED: MVI, Adult with Vitamin K 10 ML, Thiamine 100 MG, Folic Acid 1 MG in Lactated Ringers 1... IV ONE ×4 (10:40)
[2020-02-20] MEDS ORDERED: LORazepam 2 MG/ML SDV IVPUSH ONE (10:43)
[2020-02-20 11:13] LABS: ANION GAP 17.2 mEq/L (7-13); CHLORIDE,CL 102 mmol/L (98-107); SODIUM,NA 144 mmol/L (136-145)
[2020-02-20 11:30] VITALS: BP 124/85; PULSE 94
--- NOTE | 2020-02-20 11:58 | EDM.PDOC ---
Scribed by Ev Abarca 02/20/20 1157 for Rolando Jara MD ED HPI GENERAL MEDICAL PROBLEM - General Chief Complaint: Neurological Problem Stated Complaint: AMBULANCE Time Seen by Provider: 02/20/20 10:39 Source of Information: Reports: Patient, EMS, EMS Notes Reviewed, RN, RN Notes Reviewed History Limitations: Reports: No Limitations - History of Present Illness INITIAL COMMENTS - FREE TEXT/NARRATIVE: Patient presents to ED by [facility] stating that patient had a seizure. Patient is a known seizure patient who has not been taking his medica tion. He has been drinking alcohol heavily this week. Denies current intoxication. Denies withdrawals. - Related Data Allergies Allergy/AdvReac Type Severity Reaction Status Date / Time bee venom protein (honey bee) Allergy Shortness Verified 02/20/20 11:30 of Breath Home Meds: Home Meds Ascorbic Acid [C-1000] 1,000 mg PO DAILY 05/03/19 [History] Aspirin [Halfprin] 81 mg PO DAILY 05/03/19 [History] Divalproex Sodium [Divalproex Sodium ER] 500 mg PO DAILY 05/03/19 [History] Melatonin 10 mg PO DAILY 05/03/19 [History] Multivitamin [Multivitamins] 1 each PO DAILY 05/03/19 [History] SUMAtriptan [Imitrex] 25 mg PO ASDIRECTED 05/03/19 [History] Thiamine [Vitamin B-1] 100 mg PO DAILY 05/03/19 [History] Vitamin B Complex [B Complex] 1 each PO DAILY 05/03/19 [History] atorvaSTATin [Lipitor] 40 mg PO BEDTIME 05/03/19 [History] levETIRAcetam [Keppra] 1,000 mg PO BID 05/03/19 [History] traMADol [Ultram] 50 mg PO Q4H PRN 05/03/19 [History] Past Medical History - Past Health History Medical/Surgical History: Denies Medical/Surgical History HEENT History: Reports: Hard of Hearing Other HEENT History: to left ear, bad eyes Cardiovascular History: Reports: None Respiratory History: Reports: None Gastrointestinal History: Reports: None Genitourinary History: Reports: None Musculoskeletal History: Reports: Arthritis 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 Neurological History: Reports: Brain Injury, Head Trauma, Seizure Other Neuro History: Seizure disorder, brain hematoma from a snow shovel Psychiatric History: Reports: Addiction Other Psychiatric History: alcohol Endocrine/Metabolic History: Reports: None Hematologic History: Reports: None Immunologic History: Reports: None Oncologic (Cancer) History: Reports: None Dermatologic History: Reports: None - Infectious Disease History Infectious Disease History: Reports: Chicken Pox - Past Surgical History Head Surgeries/Procedures: Reports: None Social & Family History - Family History Family Medical History: No Pertinent Family History Cardiac: Reports: CAD, Hypertension Oncologic: Reports: None - Caffeine Use Caffeine Use: Reports: None Caffeine Use Comment: unknown - Living Situation & Occupation Living situation: Reports: Single, with Family Occupation: Unemployed ED ROS GENERAL - Review of Systems Review Of Systems: Comprehensive ROS is negative, except as noted in HPI. - Physical Exam Exam: See Below Exam Limited By: No Limitations General Appearance: Alert, WD/WN, No Apparent Distress, Thin Eye Exam: Bilateral Eye: EOMI, Normal Inspection, PERRL Ears: Normal External Exam, Hearing Grossly Normal Nose: Normal Inspection, Normal Mucosa, No Blood Throat/Mouth: Normal Inspection, Normal Lips, Normal Gums, Normal Oropharynx, Normal Voice, No Airway Compromise. No: Evidence of Tongue Biting Head Exam: Atraumatic, Normocephalic Neck: Normal Inspection, Supple, Non-Tender, Full Range of Motion Respiratory/Chest: No Respiratory Distress, Lungs Clear, Normal Breath Sounds, No Accessory Muscle Use, Chest Non-Tender Cardiovascular: Normal Peripheral Pulses, Regular Rate, Rhythm, No Edema, No Gallop, No JVD, No Murmur, No Rub GI/Abdominal: Normal Bowel Sounds, Soft, Non-Tender, No Organomegaly, No Distention, No Abnormal Bruit, No Mass Neuro Exam (Abbreviated): Alert, Oriented, CN II-XII Intact, Normal Cognition, No Motor/Sensory Deficits Back Exam: Normal Inspection Extremities: Normal Inspection, Normal Range of Motion, Non-Tender, No Pedal Edema, Normal Capillary Refill Psychiatric: Normal Affect, Normal Mood Skin Exam: Warm, Dry, Intact, Normal Color, No Rash Course - Vital Signs Last Recorded V/S: Last Vital Signs Temp 96.7 F L 02/20/20 10:38 Pulse 94 02/20/20 10:38 Resp 16 02/20/20 10:38 BP 124/85 02/20/20 10:38 Pulse Ox 94 L 02/20/20 10:38 - Orders/Labs/Meds Orders: Active Orders 24 hr Category Date Time Status Peripheral IV Care [RC] . DIRECTED Care 02/20/20 10:40 Active DRUG SCREEN URINE BIORAD [URCHEM] Stat Lab 02/20/20 10:39 Ordered UA RFX LEYLA AND CULT IF INDIC [URIN] Stat Lab 02/20/20 10:39 Ordered Sodium Chloride 0.9% [Saline Flush] Med 02/20/20 10:40 Active 10 ml FLUSH ASDIRECTED PRN Peripheral IV Insertion Adult [OM.PC] Stat Oth 02/20/20 10:39 Ordered Seizure Precautions [OM.PC] Routine Oth 02/20/20 10:40 Ordered Medication Orders Sodium Chloride (Saline Flush) 10 ml FLUSH ASDIRECTED PRN PRN Reason: Keep Vein Open Last Admin: 02/20/20 10:56 Dose: 10 ml Documented by: MARY Labs: Laboratory Tests 02/20/20 02/20/20 Range/Units 10:49 10:49 WBC 8.3 (5.0-10.0) 10^3/uL RBC 4.59 L (4.6-6.2) 10^6/uL Hgb 15.0 (14.0-18.0) g/dL Hct 44.7 (40.0-54.0) % MCV 97.4 (80-100) fL MCH 32.7 (27.0-34.0) pg MCHC 33.6 (33.0-35.0) g/dL Plt Count 251 D (150-450) 10^3/uL Neut % (Auto) 64.1 (42.2-75.2) % Lymph % (Auto) 24.1 (20.5-50.1) % [place] % (Auto) 10.3 H (2-8) % Eos % (Auto) 1.3 (1.0-3.0) % Baso % (Auto) 0.2 (0.0-1.0) % Sodium 144 (136-145) mmol/L Potassium 4.2 (3.5-5.1) mmol/L Chloride 102 (98-107) mmol/L Carbon Dioxide 29 (21-32) mmol/L Anion Gap 17.2 H (7-13) mEq/L BUN 13 (7-18) mg/dL Creatinine 0.99 (0.70-1.30) mg/dL Est Cr Clr Drug Dosing TNP Estimated GFR (MDRD) > 60 BUN/Creatinine Ratio 13.1 (No establ ref range) Glucose 95 (74-99) mg/dL Calcium 8.5 (8.5-10.1) mg/dL Total Bilirubin 0.6 (0.2-1.0) mg/dL AST 24 (15-37) U/L ALT 30 (16-63) U/L Alkaline Phosphatase 92 (46-116) U/L Creatine Kinase 59 (39-308) U/L C-Reactive Protein < 0.2 (0.0-0.9) mg/dL Total Protein 8.0 (6.4-8.2) g/dL Albumin 3.8 (3.4-5.0) g/dL Globulin 4.2 Albumin/Globulin Ratio 0.9 Ethyl Alcohol 3 (0) mg/dL Meds: Medications Generic Name Dose Route Start Last Admin Trade Name Freq PRN Reason Stop Dose Admin Sodium Chloride 10 ml 02/20/20 10:40 02/20/20 10:56 Saline Flush FLUSH 10 ml ASDIRECTED PRN Administration Keep Vein Open Discontinued Medications Generic Name Dose Route Start Last Admin Trade Name Freq PRN Reason Stop Dose Admin Multivitamins/Minerals 10 ml/ 1,011.2 mls @ 999 mls/hr 02/20/20 10:40 02/20/20 10:55 Thiamine HCl 100 mg/ Folic IV 02/20/20 11:40 999 mls/hr Acid 1 mg/ Lactated Ringer's .BOLUS ONE Administration Levetiracetam 1,500 mg/ Premix 300 mls @ 1,200 mls/hr 02/20/20 10:40 02/20/20 10:56 IV 02/20/20 10:41 1,200 mls/hr ONETIME ONE Administration Lorazepam 2 mg 02/20/20 10:43 02/20/20 10:54 Ativan IVPUSH 02/20/20 10:44 2 mg ONETIME ONE Administration Departure - Departure Time of Disposition: 12:15 Disposition: Home, Self-Care 01 Condition: Good Clinical Impression: Seizure, Seizure disorder - Discharge Information *PRESCRIPTION DRUG MONITORING PROGRAM REVIEWED*: Not Applicable *COPY OF PRESCRIPTION DRUG MONITORING REPORT IN PATIENT BREANNE: Not Applicable Instructions: Seizure, Adult, [id number] Forms: ED Department Discharge Additional Instructions: Rx: Keppra 1000mg Rx: Divalproex Sodium ER 500mg Take you seizure medication exactly as prescribed. Follow up in clinic this week for recheck, and for medication management. Sepsis Event Note (ED) - Focused Exam Vital Signs: Vital Signs Temp Pulse Resp BP Pulse Ox 02/20/20 10:38 96.7 F L 94 16 124/85 94 L - My Orders Last 24 Hours: My Active Orders 02/20/20 10:39 DRUG SCREEN URINE BIORAD [URCHEM] Stat UA RFX LEYLA AND CULT IF INDIC [URIN] Stat Peripheral IV Insertion Adult [OM.PC] Stat 02/20/20 10:40 Peripheral IV Care [RC] . DIRECTED Sodium Chloride 0.9% [Saline Flush] 10 ml FLUSH ASDIRECTED PRN Seizure Precautions [OM.PC] Routine - Assessment/Plan Last 24 Hours: My Active Orders 02/20/20 10:39 DRUG SCREEN URINE BIORAD [URCHEM] Stat UA RFX LEYLA AND CULT IF INDIC [URIN] Stat Peripheral IV Insertion Adult [OM.PC] Stat 02/20/20 10:40 Peripheral IV Care [RC] . DIRECTED Sodium Chloride 0.9% [Saline Flush] 10 ml FLUSH ASDIRECTED PRN Seizure Precautions [OM.PC] Routine I have read and agree with the documentation that has been completed regarding this visit. By signing this record, I attest that the documentation was completed in my physical presence and is an accurate record of the encounter.
== END 2020-02-20 12:35 | disposition home or self-care (01) ==
LOC: DL.ED 10:37
DX: G40.909 Epilepsy, unspecified, not intractable, without status epilepticus (principal); M19.90 Unspecified osteoarthritis, unspecified site; Z91.030 Bee allergy status; Z79.82 Long term (current) use of aspirin; Z79.899 Other long term (current) drug therapy
CPT/HCPCS: 36415; 80053; 80307; 82550; 85025; 86140; 96365; 96375; 99285; J1953; J2060; J3411; J7120; 99283; J3490

== ENCOUNTER 2022-11-18 14:13 | Emergency (ER) | payer MEDICARE, MEDICAID ==
[2022-11-18] MEDS ORDERED: Sodium Chloride 0.9% 10 ML Syringe FLUSH PRN (14:19)
[2022-11-18 14:26] LABS: BASOPHILS PERCENT AUTO 0.3 % (0.0-1.0); EOSINOPHILS PERCENT AUTO 0.9 % (1.0-3.0); HEMATOCRIT 37.5 % (40.0-54.0); HEMOGLOBIN 12.7 g/dL (14.0-18.0); LYMPHOCYTES PERCENT AUTO 49.5 % (20.5-50.1); MEAN CORPUSCULAR HEMOGLOBIN 32.8 pg (27.0-34.0); MEAN CORPUSCULAR HGB CONC 33.9 g/dL (33.0-35.0); MEAN CORPUSCULAR VOLUME 96.9 fL (80-100); MONOCYTES PERCENT AUTO 11.2 % (2-8); NEUTROPHILS PERCENT AUTO 38.1 % (42.2-75.2); PLATELET COUNT,PLT 231 10^3/uL (150-450); RED BLOOD CELL COUNT 3.87 10^6/uL (4.6-6.2); WHITE BLOOD CELL COUNT,WBC 6.3 10^3/uL (5.0-10.0)
[2022-11-18 14:46] LABS: PROTHROMBIN TIME 10.2 SEC (9.0-12.0); PTT,PARTIAL THROMBOPLSTIN TIME 25.6 SEC (22.0-34.0)
[2022-11-18 14:48] LABS: ALANINE AMINOTRANSFERASE,ALT 13 U/L (16-63); ALBUMIN 3.1 g/dL (3.4-5.0); ALKALINE PHOSPHATASE 88 U/L (46-116); ANION GAP 8.9 mEq/L (7-13); ASPARTATE AMNIOTRANSFERASE,AST 17 U/L (15-37); BILIRUBIN TOTAL 0.2 mg/dL (0.2-1.0); BLOOD UREA NITROGEN,BUN 14 mg/dL (7-18); BUN/CREATININE RATIO 17.3 (No establ ref range); CALCIUM 8.2 mg/dL (8.5-10.1); CARBON DIOXIDE,CO2 32 mmol/L (21-32); CHLORIDE,CL 105 mmol/L (98-107); CREATININE 0.81 mg/dL (0.70-1.30); GLUCOSE RANDOM 102 mg/dL (70-99); POTASSIUM,K 3.9 mmol/L (3.5-5.1); PROTEIN TOTAL,TP 6.3 g/dL (6.4-8.2); SODIUM,NA 142 mmol/L (136-145)
[2022-11-18 14:50] LABS: A/G RATIO 0.97; ESTIMATED GFR 103 mL/min (>=60); ETHANOL BLOOD MEDICAL < 3 mg/dL (0)
[2022-11-18 14:55] LABS: LACTIC ACID 1.3 mmol/L (0.4-2.0)
[2022-11-18] MEDS ORDERED: Iopamidol 755 Mg/ML 100 ML Bottle IVPUSH ONE (16:44)
[2022-11-18] MEDS ORDERED: Sodium Chloride 0.9% 1,000 ML IV ONE (16:46)
[2022-11-18 18:42] LABS: APPEARANCE,URINE CLEAR (CLEAR); BILIRUBIN,URINE NEGATIVE (NEGATIVE); COLOR,URINE YELLOW (YELLOW); GLUCOSE,URINE NEGATIVE (NEGATIVE); KETONES,URINE NEGATIVE (NEGATIVE); LEUKOCYTE ESTERASE,URINE NEGATIVE (NEGATIVE); NITRITE,URINE NEGATIVE (NEGATIVE); OCCULT BLOOD,URINE NEGATIVE (NEGATIVE); PROTEIN,URINE NEGATIVE (NEGATIVE); UROBILINOGEN,URINE 0.2 mg/dL (0.2-1.0)
[2022-11-18 18:43] LABS: AMPHETAMINES,URINE NEGATIVE (NEGATIVE); BARBITURATES,URINE NEGATIVE (NEGATIVE); BENZODIAZEPINE,URINE NEGATIVE (NEGATIVE); MDMA (ECSTASY), URINE NEGATIVE (NEGATIVE); METHADONE,URINE NEGATIVE (NEGATIVE); METHAMPHETAMINES,URINE NEGATIVE (NEGATIVE); OPIATES,URINE NEGATIVE (NEGATIVE); OXYCODONE,URINE NEGATIVE (NEGATIVE); PHENCYCLIDINE,URINE NEGATIVE (NEGATIVE)
[2022-11-18 18:45] LABS: TCA,URINE POSITIVE (NEGATIVE)
[2022-11-18] MEDS ORDERED: Aspirin 325 MG Tab PO ONE (19:05)
[2022-11-18] MEDS ORDERED: Divalproex Sodium Delayed-Release 250 MG Tab.CR PO ONE (20:27)
[2022-11-18] MEDS ORDERED: levETIRAcetam 500 MG Tab PO SCH (21:00)
[2022-11-18 21:08] VITALS: BP 112/69; PULSE 55
== END 2022-11-18 21:05 ==
LOC: DL.ED 14:13
DX: I63.9 Cerebral infarction, unspecified (principal); M19.90 Unspecified osteoarthritis, unspecified site; Z91.030 Bee allergy status; Z79.899 Other long term (current) drug therapy
CPT/HCPCS: 36415; 70450; 70496; 70498; 80053; 80164; 80177; 80305-QW; 80307; 81003; 82140; 82947; 83605; 84145; 84484; 85025; 85610; 85730; 93005; 93010; 96360; 99285; 99285-25; A9270-GY; J3490; J7030; Q9967

== ENCOUNTER 2023-07-17 22:04 | Emergency (ER) | payer MEDICARE, MEDICAID ==
[2023-07-17 22:26] VITALS: BP 106/61; PULSE 82
[2023-07-17] MEDS: Sodium Chloride 0.9% 1,000 ML IV ONE (22:56)
[2023-07-17 22:57] LABS: BASOPHILS PERCENT AUTO 0.2 % (0.0-1.0); EOSINOPHILS PERCENT AUTO 1.6 % (1.0-3.0); HEMATOCRIT 39.2 % (40.0-54.0); HEMOGLOBIN 13.2 g/dL (14.0-18.0); LYMPHOCYTES PERCENT AUTO 21.7 % (20.5-50.1); MEAN CORPUSCULAR HEMOGLOBIN 31.1 pg (27.0-34.0); MEAN CORPUSCULAR HGB CONC 33.7 g/dL (33.0-35.0); MEAN CORPUSCULAR VOLUME 92.5 fL (80-100); MONOCYTES PERCENT AUTO 9.8 % (2-8); NEUTROPHILS PERCENT AUTO 66.7 % (42.2-75.2); PLATELET COUNT,PLT 379 10^3/uL (150-450); RED BLOOD CELL COUNT 4.24 10^6/uL (4.6-6.2); WHITE BLOOD CELL COUNT,WBC 4.3 10^3/uL (5.0-10.0)
[2023-07-17 23:14] LABS: INR 0.9 (0.9-1.2); PROTHROMBIN TIME 9.2 SEC (9.0-12.0)
[2023-07-17 23:19] LABS: B-TYPE NATRIURETIC PEPTIDE,BNP 19 pg/ml (0-100)
[2023-07-17 23:25] LABS: ALANINE AMINOTRANSFERASE,ALT 7 U/L (16-63); ALBUMIN 2.8 g/dL (3.4-5.0); ALKALINE PHOSPHATASE 118 U/L (46-116); ANION GAP 13.3 mEq/L (7-13); ASPARTATE AMNIOTRANSFERASE,AST 18 U/L (15-37); BILIRUBIN TOTAL 0.2 mg/dL (0.2-1.0); BLOOD UREA NITROGEN,BUN 15 mg/dL (7-18); BUN/CREATININE RATIO 19.7 (No establ ref range); CALCIUM 8.3 mg/dL (8.5-10.1); CARBON DIOXIDE,CO2 30 mmol/L (21-32); CHLORIDE,CL 106 mmol/L (98-107); CREATININE 0.76 mg/dL (0.70-1.30); ETHANOL BLOOD MEDICAL 268 mg/dL (0); GLUCOSE RANDOM 103 mg/dL (70-99); LACTIC ACID 2.6 mmol/L (0.4-2.0); LIPASE 14 U/L (16-77); MAGNESIUM 2.1 mg/dL (1.8-2.4); POTASSIUM,K 4.3 mmol/L (3.5-5.1); PROTEIN TOTAL,TP 7.3 g/dL (6.4-8.2); SODIUM,NA 145 mmol/L (136-145)
[2023-07-17 23:29] LABS: A/G RATIO 0.62; ESTIMATED GFR 105 mL/min (>=60)
[2023-07-18 02:12] LABS: APPEARANCE,URINE CLEAR (CLEAR); BILIRUBIN,URINE NEGATIVE (NEGATIVE); COLOR,URINE YELLOW (YELLOW); GLUCOSE,URINE NEGATIVE (NEGATIVE); KETONES,URINE 15 (NEGATIVE); LEUKOCYTE ESTERASE,URINE NEGATIVE (NEGATIVE); NITRITE,URINE NEGATIVE (NEGATIVE); OCCULT BLOOD,URINE NEGATIVE (NEGATIVE); PH,URINE 5.5 (5.0-9.0); PROTEIN,URINE NEGATIVE (NEGATIVE)
[2023-07-18 02:21] LABS: AMPHETAMINES,URINE NEGATIVE (NEGATIVE); BARBITURATES,URINE NEGATIVE (NEGATIVE); BENZODIAZEPINE,URINE NEGATIVE (NEGATIVE); MDMA (ECSTASY), URINE NEGATIVE (NEGATIVE); METHADONE,URINE NEGATIVE (NEGATIVE); METHAMPHETAMINES,URINE NEGATIVE (NEGATIVE); OPIATES,URINE NEGATIVE (NEGATIVE); OXYCODONE,URINE NEGATIVE (NEGATIVE); PHENCYCLIDINE,URINE NEGATIVE (NEGATIVE); TCA,URINE POSITIVE (NEGATIVE)
[2023-07-20 11:47] LABS: KEPPRA 72 ug/mL (10-40)
== END 2023-07-18 04:15 | disposition home or self-care (01) ==
LOC: DL.ED 22:04
DX: F10.121 Alcohol abuse with intoxication delirium (principal); Z91.030 Bee allergy status; Z79.82 Long term (current) use of aspirin; Z79.899 Other long term (current) drug therapy; Y90.9 Presence of alcohol in blood, level not specified
CPT/HCPCS: 36415; 70450; 71045; 80053; 80164; 80177; 80305-QW; 80307; 81003; 82140; 83605; 83690; 83735; 83880; 84484; 85025; 85610; 87040; 93005; 93010; 96360; 99285; 99285-25; J7030

== ENCOUNTER 2024-12-04 18:15 | Emergency (ER) | payer MEDICARE, MEDICAID ==
[2024-12-04 18:39] VITALS: BP 148/91; PULSE 64
[2024-12-04] MEDS: Divalproex Sodium Delayed-Release 250 MG Tab.CR PO ONE (18:41)
== END 2024-12-04 19:03 | disposition home or self-care (01) ==
LOC: DL.ED 18:15
DX: G40.909 Epilepsy, unspecified, not intractable, without status epilepticus (principal); M19.90 Unspecified osteoarthritis, unspecified site; Z76.0 Encounter for issue of repeat prescription; Z79.899 Other long term (current) drug therapy; Z91.030 Bee allergy status
CPT/HCPCS: 99281; 99283; A9270-GY